=== PATIENT | female | born 1970 | race Caucasian/White ===

== ENCOUNTER → 2020-03-03 10:38 | Outpatient (BNVA) | payer OTHER, SELFPAY | PROVIDERS: Visit Provider Nurse Practitioner | DX: Z20.828 Contact with and (suspected) exposure to other viral communicable diseases (principal) | CPT/HCPCS: 87635 ==

== ENCOUNTER → 2020-06-02 11:24 | Outpatient (BNVA) | payer OTHER, SELFPAY | PROVIDERS: Visit Provider Nurse Practitioner Family | DX: M25.531 Pain in right wrist (principal) | CPT/HCPCS: 73110 ==

== ENCOUNTER 2023-03-05 09:57 | Day surgery (SDC) | payer BC, SELFPAY ==
[2023-03-05 10:21] VITALS: BP 116/73; PULSE 78; RESP 18; TEMP 36.9; O2SAT 96
[2023-03-05 10:30] VITALS: BMI 32.7
[2023-03-05] MEDS: sodium chloride 0.9% 1,000 ML 30 ML IV (10:37)
--- NOTE | 2023-03-05 10:40 | ANES.PREANE2 ---
Pre-Anesthetic Assessment Height/Weight: Height 1.7 m Weight 94.801 kg Temp Pulse Resp BP Pulse Ox O2 Del Method 98.4 F 78 18 116/73 96 Room Air 03/05/23 10:21 03/05/23 10:21 03/05/23 10:21 03/05/23 10:21 03/05/23 10:21 03/05/23 10:21 Preop Diagnosis: diarrhea, constipation Operation Date: 03/05/23 11:00 Proposed Procedures p Colonoscopy 69929, Egd 09407, R19.7,K59.00(Not Applicable) - Pk Vaughn DO s EGD(Not Applicable) - Pk Vaughn DO Was Beta Yaritza taken within 24 hours: N/A Was Clonidine taken within 24 hours: N/A Last intake: Intake Last Liquid Date 03/04/23 Last Liquid Time 22:00 Last Solid Date 03/03/23 Last Solid Time 18:00 Social No alcohol and No tobacco Exam alert, oriented x 3, clear to auscultation bilaterally and regular rate & rhythm Airway Submandibular: within normal limits Cervical ROM: within normal limits Mallampati: Class I History/ROS No significant history except as noted and No significant complaints Pulmonary suspected sleep apnea CV/HEM None reported None reported Hepatic None reported GI Gastroesophageal Reflux Disease Metabolic None reported Musc/skel None reported Neuropsych Anxiety and Depression Anesthetic Plan ASA status: 2 Anesthesia: Anesthesia Evaluation and MAC Risk of > 500 ml blood loss (7ml/kg in children): Yes, adequate IV access and fluids planned Medications/Allergies Home Medications Medication Instructions Recorded Confirmed Last Taken Type Hormone Cream 1 applic topical DAILY 06/02/20 03/04/23 03/04/23 History bupropion HCl 300 mg 24 hr tablet, 300 mg PO QAM 06/02/20 03/04/23 03/04/23 History extended release (Wellbutrin XL) acyclovir 200 mg capsule 200 mg PO TID PRN fever blister 02/16/23 03/04/23 1 Month Ago History ~02/01/23 ibuprofen 200 mg capsule 200 mg PO Q6H PRN Pain 02/16/23 03/04/23 03/04/23 History Allergies Allergy/AdvReac Type Severity Reaction Status Date / Time Penicillins Allergy Mild Unknown Verified 03/04/23 11:10 Current Medications Generic Name Dose Route Start Last Admin Trade Name Freq PRN Reason Stop Dose Admin Sodium Chloride 1,000 mls @ 30 mls/hr 03/05/23 10:15 03/05/23 10:37 Sodium Chloride 0.9% IV 03/06/23 10:14 30 mls/hr .Q24H LILIAN Administration PFSH Anesthesia Surgical History (Updated 02/16/23 @ 10:31 by Pk Vaughn DO) History of section History of hysterectomy History of ventral hernia repair Social History Smoking and tobacco status: never smoked Data Anesthesia Cardiac Studies: No Data to Display
--- NOTE | 2023-03-05 10:52 | W.PM.OPSUD ---
Surgery/Procedure H&P Update DATE OF PROCEDURE: March 05, 2023 DATE H&P PERFORMED: 02/16/23 H&P UPDATE INFORMATION: I have reviewed H&P completed within last 30 days, I have examined patient prior to procedure and No changes to prior documentation PREOP DIAGNOSIS: diarrhea, constipation PLANNED PROCEDURE: Operation Date: 03/05/23 11:00 Proposed Procedures p Colonoscopy 30768, Egd 76650, R19.7,K59.00(Not Applicable) - Pk Vaughn DO s EGD(Not Applicable) - Pk Vaughn DO
[2023-03-05 11:22] VITALS: BP 108/78; PULSE 70; RESP 14; TEMP 36.3; O2SAT 92
[2023-03-05 11:35] VITALS: BP 103/72; PULSE 80; RESP 16; O2SAT 93
--- NOTE | 2023-03-05 13:37 | ANE.PACU2 ---
Inpatient post-anesthesia follow up: Airway intact: Yes Vital signs: Temperature 97.3 F Pulse Rate 80 Respiratory Rate 16 Blood Pressure 103/72 Pulse Oximetry 93 Oxygen Delivery Me thod Room Air Oxygen Flow Rate Fraction of Inspir ed Oxygen Hydration adequate: Yes Nausea and vomiting: No Pain level: 2 Mental status: Baseline
== END 2023-03-05 11:48 | disposition home or self-care (01) ==
PROVIDERS: PCP Nurse Practitioner Family; Visit Provider Surgery
PROC: 0DJD8ZZ Inspection of Lower Intestinal Tract, Via Natural or Artificial Opening Endoscopic (ICD-10-PCS; CPT 45378; principal; 2023-03-05 11:00)
PROC: 0DJ08ZZ Inspection of Upper Intestinal Tract, Via Natural or Artificial Opening Endoscopic (ICD-10-PCS; CPT 43235; 2023-03-05 11:00)
DX: R19.7 Diarrhea, unspecified (principal); K59.00 Constipation, unspecified; K29.50 Unspecified chronic gastritis without bleeding; K21.9 Gastro-esophageal reflux disease without esophagitis
CPT/HCPCS: 43239; 45380; 82274; 83630; 87045; 87177; 87209; 87324; 87427; 87449; 88305; 88312; 88342; J2704; J3010; J7030

== ENCOUNTER 2023-03-31 06:31 | Outpatient (CLI) | payer BC, SELFPAY ==
--- NOTE | 2023-03-31 06:45 | US_ITS ---
WS: [id number] RIGHT UPPER QUADRANT ULTRASOUND HISTORY: abdominal pain COMPARISON: None available. Liver: 15.2 cm in length. Liver is top normal size. The entire liver is not well visualized due to at tenuation from hepatic steatosis. There is increased density in echogenicity throughout the liver. No bile duct dilatation Portal Vein: Normal hepatopetal flow with monophasic waveform. Gallbladder: Normally distended. Numerous stones are present in the gallbladder. Several of the stone s measure up to 2 cm in diameter. There is no wall thickening. No pericholecystic fluid. CBD: 0.4 cm, CBD is not well visualized. Pancreas: Poorly visualized pancreas. Large portions are obscured due to body habitus. Right kidney: 11.7 cm in length. Normal size and echogenicity. No hydronephrosis or mass. Aorta and IVC: Unremarkable abdominal aorta and IVC. No ascites. IMPRESSION: 1. Cholelithiasis. Numerous stones present in the gallbladder. No evidence for acute cholecystitis at this time. 2. Liver is top normal size with moderate to severe hepatic steatosis. The entire liver is not well v isualized due to the attenuation.
== END 2023-03-31 06:32 | disposition home or self-care (01) ==
LOC: RAD 06:31
PROVIDERS: PCP Nurse Practitioner Family; Visit Provider Surgery
DX: K80.20 Calculus of gallbladder without cholecystitis without obstruction (principal)
CPT/HCPCS: 76705

== ENCOUNTER 2023-05-13 05:38 | Day surgery (SDC) | payer BC, SELFPAY ==
[2023-05-13] VITALS (8 sets, daily range): BP systolic 109–133; BP diastolic 58–89; PULSE 64–74; RESP 14–20; TEMP 36.2–36.8; O2SAT 92–99; BMI 32.8
[2023-05-13] MEDS: sodium chloride 0.9% 1,000 ML 30 ML IV (06:13)
[2023-05-13] MEDS: vancomycin 1,500 MG/300 ML PIGGYBACK 200 MG IV (06:58)
--- NOTE | 2023-05-13 06:59 | W.PM.OPSUD ---
Surgery/Procedure H&P Update DATE OF PROCEDURE: May 13, 2023 DATE H&P PERFORMED: 04/28/23 H&P UPDATE INFORMATION: I have reviewed H&P completed within last 30 days, I have examined patient prior to procedure and No changes to prior documentation PLANNED PROCEDURE: Operation Date: 05/13/23 07:00 Proposed Procedures p 63187 lap red R10.13(Not Applicable) - Pk Vaughn,
[2023-05-13] MEDS: lidocaine-epi 2% 20 mL INJ INJECTION (07:32)
--- NOTE | 2023-05-13 07:54 | P.OP_ITS ---
Operative Report Date of procedure: May 13, 2023 Pre-op diagnosis: Symptomatic cholelithiasis Post-op diagnosis: Symptomatic cholelithiasis Surgeon: Pk Vaughn DO Brief History: This very pleasant 52-year-old female presented my office with symptomatic cholelithiasis. Laparoscopic cholecystectomy is indicated. The risk benefits were explained and documented. Procedure: Preoperative diagnosis: Symptomatic cholelithiasis Postoperative diagnosis: Same Procedure performed: Laparoscopic cholecystectomy Surgeon: Dr. Pk Vaughn DO Estimated blood loss: 5 mL Specimens: Gallbladder to pathology Complications: None apparent Description of procedure: Patient was wheeled into the operative room and placed on the OR table in a supine position. Abdomen was inspected prepped and draped in usual sterile fashion. Time-out was performed and all present were in agreement. A 15 blade scalp was used to make a stab incision in the left upper quadrant and intra- abdominal insufflation was achieved using a Veress needle. After localizing the tissue incisions were made and a 5 millimeter trocar was placed into the umbilicus as well as 2 in the right upper quadrant. A 12 millimeter trocar was placed in the epigastrium. Gallbladder was grasped and elevated. The triangle of Calot was carefully dissected using blunt dissection and electrocautery until the triangle of Calot clearly identified. The cystic duct was clipped proximally and double clipped distally. The duct was then ligated proximally. The cystic artery was doubly clipped and ligated. The gallbladder was then removed from the liver bed using electrocautery. The gallbladder was removed from the abdomen using an Endo-Catch bag through the epigastric incision. The liver bed was inspected and no bleeding was seen. The abdomen was irrigated and suctioned. All ports removed. Skin was washed and dried. Incisions were closed with 4-0 Monocryl in a subcuticular interrupted fashion. Skin glue was applied. Patient tolerated the procedure well.
--- NOTE | 2023-05-13 08:21 | ANES.PREANE2 ---
Pre-Anesthetic Assessment Height/Weight: Height 1.7 m Weight 95.254 kg Temp Pulse Resp BP Pulse Ox O2 Del Method 98.3 F 74 18 118/75 95 Room Air 05/13/23 06:05 05/13/23 06:05 05/13/23 06:05 05/13/23 06:05 05/13/23 06:05 05/13/23 06:05 Operation Date: 05/13/23 07:00 Proposed Procedures p 99981 lap red R10.13(Not Applicable) - Pk Vaughn DO Familial anesthetic complications: none Was Beta Yaritza taken within 24 hours: N/A Was Clonidine taken within 24 hours: N/A Last intake: Intake Last Liquid Date 05/12/23 Last Liquid Time 21:00 Last Solid Date 05/12/23 Last Solid Time 19:00 Social No alcohol and No tobacco Exam alert, oriented x 3, clear to auscultation bilaterally and regular rate & rhythm Airway Submandibular: within normal limits Cervical ROM: within normal limits Mallampati: Class II Dentition: full GI Gastroesophageal Reflux Disease Metabolic Obese Neuropsych Anxiety and Depression Anesthetic Plan ASA status: 2 Anesthesia: General Medications/Allergies Home Medications Medication Instructions Recorded Confirmed Last Taken Type Hormone Cream 1 applic topical DAILY 06/02/20 05/13/23 05/13/23 History bupropion HCl 300 mg 24 hr tablet, 300 mg PO QAM 06/02/20 05/12/23 05/12/23 History extended release (Wellbutrin XL) acyclovir 200 mg capsule 200 mg PO TID PRN fever blister 02/16/23 05/12/23 1 Month Ago History ~02/01/23 ibuprofen 200 mg capsule 200 mg PO Q6H PRN Pain 02/16/23 05/12/23 03/04/23 History pantoprazole 40 mg tablet,delayed 40 mg PO BID 60 days #120 tabs 03/23/23 05/12/23 05/12/23 Rx release (Protonix) ciprofloxacin HCl 500 mg tablet 250 mg (1/2 x 500 mg) PO BID #14 05/13/23 Unknown Rx tabs docusate sodium 100 mg capsule 100 mg PO BID #14 caps 05/13/23 Unknown Rx (Colace) hydrocodone 7.5 mg-acetaminophen 1 tab PO Q6H PRN pain #20 tabs 05/13/23 Unknown Rx 325 mg tablet metronidazole 500 mg tablet 500 mg PO TID #21 tabs 05/13/23 Unknown Rx Allergies Allergy/AdvReac Type Severity Reaction Status Date / Time Penicillins Allergy Mild Unknown Verified 05/12/23 13:32 Current Medications Generic Name Dose Route Start Last Admin Trade Name Freq PRN Reason Stop Dose Admin Sodium Chloride 1,000 mls @ 30 mls/hr 05/13/23 06:00 05/13/23 06:13 Sodium Chloride 0.9% IV 05/14/23 05:59 30 mls/hr .Q24H LILIAN Administration PFSH Anesthesia Surgical History History of hysterectomy History of section History of ventral hernia repair Social History Smoking and tobacco/nicotine status: never used tobacco/nicotine Data Anesthesia Cardiac Studies: No Data to Display
[2023-05-13] MEDS: HYDROcodone-acetaminophen 7.5-325 mg Tablet 1 TAB PO (09:03)
--- NOTE | 2023-05-13 15:45 | ANE.PACU2 ---
Inpatient post-anesthesia follow up: Airway intact: Yes Vital signs: Temperature 97.3 F Pulse Rate 64 Respiratory Rate 17 Blood Pressure 109/73 Pulse Oximetry 94 Oxygen Delivery Me thod Room Air Oxygen Flow Rate 6 Fraction of Inspir ed Oxygen Hydration adequate: Yes Nausea and vomiting: No Pain level: 3 Mental status: Baseline
== END 2023-05-13 09:30 | disposition home or self-care (01) ==
PROVIDERS: PCP Nurse Practitioner Family; Visit Provider Surgery
PROC: 0FT44ZZ Resection of Gallbladder, Percutaneous Endoscopic Approach (ICD-10-PCS; CPT 47562; principal; 2023-05-13 07:00)
DX: K80.10 Calculus of gallbladder with chronic cholecystitis without obstruction (principal); K21.9 Gastro-esophageal reflux disease without esophagitis; E66.9 Obesity, unspecified; Z68.32 Body mass index [BMI] 32.0-32.9, adult
CPT/HCPCS: 47562; 88304; J1100; J1885; J2250; J2405; J2704; J2710; J3010; J3370; J3490; J7030

== ENCOUNTER 2023-06-15 18:48 | Inpatient (IN) | payer BC, SELFPAY ==
[2023-06-15] VITALS (16 sets, daily range): BP systolic 104–126; BP diastolic 59–81; PULSE 83–116; RESP 16–32; TEMP 36.9–37.4; O2SAT 92–98; BMI 32.1; BMI 32.8
--- NOTE | 2023-06-15 19:38 | CTR_ITS ---
PROCEDURE INFORMATION: Exam: CTA Chest With Contrast Exam date and time: 06/15/2023 9:00 PM Age: 52 years old Clinical indication: Dyspnea and tachypnea; Additional info: Known dvt, now tachycardia and SOB TECHNIQUE: Imaging protocol: Computed tomographic angiography of the chest with contrast. Exam focused on the arteries. 3D rendering (Not supervised by radiologist): MIP and/or 3D reconstructed images were created by the technologist. Radiation optimization: All CT scans at this facility use at least one of these dose optimization techniques: automated exposure control; mA and/or kV adjustment per patient size (includes targeted exams where dose is matched to clinical indication); or iterative reconstruction. Contrast material: OMNI 350; Contrast volume: 100 ml; Contrast route: INTRAVENOUS (IV); COMPARISON: US gall bladder 96770 03/31/2023 6:45 AM RADIATION DOSE METRICS: Total DLP (mGy-cm): 556.27 FINDINGS: Pulmonary arteries: There are multiple bilateral intraluminal filling defects indicative of acute pulmonary embolism. The clots predominantly lie in the segmental and subsegmental vessels. There is no central or saddle embolus. Although a few clots appear nearly occlusive there is no pulmonary infarction or atelectasis. No pleural effusion. Aorta: Unremarkable. No aortic aneurysm. No aortic dissection. Lungs: See Pulmonary arteries finding. Pleural spaces: See Pulmonary arteries finding. Heart: No significant deformity of the intraventricular septum. Heart RV/LV ratio: The RV/LV ratio is 1.0. Coronary arteries: No calcified plaque in the coronary arteries. Lymph nodes: There are a few mildly enlarged hilar and central mediastinal nodes up to 1.2 cm and are most likely reactive. Liver: The liver is slightly enlarged and has geographic areas of steatosis. Gallbladder and bile ducts: The gallbladder is surgically absent. Bones/joints: Unremarkable. No acute fracture. Soft tissues: Unremarkable. CT/CT angio chest PE protcl [id number] IMPRESSION: 1. Bilateral acute pulmonary embolism. No saddle embolus or significant RV strain. 2. Hepatic steatosis.
--- NOTE | 2023-06-15 19:40 | ECG_ITS ---
[facility] Test Date: 2023-06-15 Pat Name: Kaley Dukes Department: Room: Gender: Female Cord Maker: : 1970 Requested By: Tenzin Taylor Order Number: [id number] Eri MD: Allyson Gunter M.D. Measurements Intervals [place] Rate: 100 P: 41 WA: 142 QRS: 35 QRSD: 93 T: 53 QT: 350 QTc: 452 Interpretive Statements SINUS TACHYCARDIA LOW QRS VOLTAGE IN PRECORDIAL LEADS [QRS DEFLECTION < 1.0 mV IN CHEST LEADS] NONSPECIFIC T-WAVE ABNORMALITY ABNORMAL RHYTHM ECG No previous ECG available for comparison Electronically Signed On 06-15-2023 21:43:23 LE[employer] PONY [employer]ER by Allyson Gunter M.D. [id number]
[2023-06-15 20:12] LABS: Basophils # 0.1 10^3/uL (0.0-0.1); Basophils % 0.7 %; Eosinophils # 0.2 10^3/uL (0.0-0.8); Eosinophils % 1.5 %; Hematocrit 42.3 % (36-47); Lymphocytes # 1.7 10^3/uL (0.8-4.8); Lymphocytes % 16.2 %; Mean Corpuscular HGB Conc 33.8 g/dL (30-55); Mean Corpuscular Hemoglobin 30.4 pg (27-33); Mean Platelet Volume 10.1 fL (7.4-10.4); Monocytes # 1.1 10^3/uL (0.2-0.9); Monocytes % 11.1 %; Neutrophils # 7.15 10^3/uL (1.8-7.7); Neutrophils % 70.2 %; Nucleated Red Blood Cells % 0 %; Platelet Count 188 10^3/cmm (157-399); Red Cell Distribution Width 11.9 % (12.1-15.1); White Blood Count 10.18 10^3/uL (3.29-11.43)
[2023-06-15 20:35] LABS: Troponin(5th) Baseline < 6 ng/L (0-10)
[2023-06-15 20:47] LABS: Alanine Aminotransferase 54 U/L (0-33); Albumin Level 4.7 g/dL (3.5-5.2); Alkaline Phosphatase 142 U/L (35-105); Anion Gap 19.5 (5-19); Aspartate Amino Transferase 36 U/L (0-32); Blood Urea Nitrogen 13 mg/dL (6-20); Calcium 9.8 mg/dL (8.5-10.5); Carbon Dioxide 23 mmol/L (22-29); Chloride 98 mmol/L (98-107); Globulin 3.1 g/dL (1.3-4.6); Glomerular Filtration Rate 88.6 mL/min (90-130); Glucose 294 mg/dL (65-115); NT Pro B Type Natriuretic Pept < 36 pg/mL (0-125); Osmolality Calculated 293 mOsm/kg (285-295); Potassium 4.5 mmol/L (3.5-5.1); Sodium 136 mmol/L (136-145); Total Protein 7.8 g/dL (6.6-8.7)
[2023-06-15] MEDS: iohexol 350 mg/mL 500 mL Btl (per mL) IV (20:59)
--- NOTE | 2023-06-15 21:02 | W.ED.SOB ---
HPI - SOB/Dyspnea General: Chief Complaint: Shortness of Breath/Dyspnea Stated Complaint: right leg swollen Time Seen by Provider: 06/15/23 19:21 History of Present Illness: HPI Narrative: 52-year-old female presents emergency department complaining of shortness of breath with exertion. She was diagnosed with a left lower extremity DVT yesterday. Based on her understanding, it is a relatively long segment DVT. She was started on Eliquis 5 mg p.o. twice daily. (It appears that she was not instructed to take 10 mg p.o. twice daily x 7 days). Patient reports he is not having any chest pain or hemoptysis but feels fatigued when she is trying to exert herself. She was noted to have tachycardia and low-grade temperature of 99.4 on arrival. It is unclear whether this is from systemic inflammatory reaction or whether the patient has a pulmonary embolism. In fact, the patient was referred to the emergency department with concern that she may have pulmonary embolism as she reported shortness of breath. She does not have any history of DVT or clotting disorder. She did have surgery in May; this appears to be her only risk factor that we are aware of. She does use bioidentical hormone cream but only to reach normal levels. Associated symptoms: Deny chest congestion, chest pain, fever(s), hemoptysis, lightheadedness, palpitations or syncope Review of Systems General: Reports: 10 or more systems reviewed and unremarkable except in HPI and below Const: Reports: other (LLE pain/swelling); Denies: fever(s) or chills Card: Reports: edema and dyspnea on exertion; Denies: chest pain, palpitations, irregular heart rhythm, lightheadedness, syncope or pre-syncope Resp: Reports: dyspnea; Denies: productive cough, non-productive cough, wheezing, stridor, pain on inspiration, change in phlegm color, hemoptysis or chest congestion Skin/Breast: Reports: other (mild erythema LLE) [facility] ED PFSH: Surgical History (Updated 06/08/23 @ 08:50 by Pk Vaughn DO) S/P cholecystectomy History of hysterectomy History of section History of ventral hernia repair Social History Smoking and tobacco/nicotine status: never used tobacco/nicotine Physical Exam Narrative: EXAM NARRATIVE: Examination is notable for middle-age female in no apparent distress who has a tachycardia with palpable radial pulse. Her face is slightly flushed and her skin is all slightly warm. She has some mild erythroderma of the left lower extremity. The left lower extremity is obviously more swollen than the right. It is tender to palpation. Capillary refill is brisk. There appears to be venous congestion which would be easily explained by her long segment DVT. I do not hear any cardiac murmurs. Her lungs are clear. She is on room air. Const: COMMON NORMALS: no limitations, alert and well nourished EXAM LIMITATIONS: no altered mental status HENMT: COMMON NORMALS: normocephalic, atraumatic and external ears normal HEAD & SCALP: normocephalic and atraumatic EXTERNAL EAR: Yes external ears normal MOUTH: no muffled voice Eye: COMMON NORMALS: EOMs intact bilaterally, conjunctivae normal and no scleral icterus CONJUNCTIVA: Yes conjunctivae normal Neck/C-Spine: COMMON NORMALS: no JVD GENERAL: Yes normal visual inspection and Yes trachea midline Resp: COMMON NORMALS: No use of accessory muscles and clear to auscultation bilaterally AUSCULTATION: clear to auscultation bilaterally Cardio: COMMON NORMALS: no JVD and regular rhythm RHYTHM: regular rhythm GI: COMMON NORMALS: Soft to palpation PALPATION: Yes Soft to palpation and No Guarding due to palpation present (GI) Neuro: COMMON NORMALS: moves all extremities, no focal motor deficits and no sensory deficits noted SENSORIUM/ORIENTATION: Yes alert SPEECH: speech normal Psych: COMMON NORMALS: mental status grossly normal, Normal thought process present, cooperative, normal affect and speech normal SPEECH: Yes normal speech THOUGHT PROCESS: Normal thought process present Skin: COMMON NORMALS: no rashes or lesions noted, turgor normal and no jaundice GENERAL SKIN EXAM: no rashes or lesions noted and turgor normal Course Vital Signs: Vital signs: Vital Signs Temperature 99.4 F 06/15/23 19:02 Pulse Rate 100 06/15/23 22:30 Respiratory Rate 17 06/15/23 20:45 Blood Pressure 104/73 06/15/23 22:30 Pulse Oximetry 93 06/15/23 22:30 Oxygen Delivery Me thod Room Air 06/15/23 20:45 MDM - SOB/Dyspnea Medical Decision Making 52-year-old female with history of recently diagnosed left lower extremity DVT who now presents with shortness of breath with exertion, low-grade fever, tachycardia. The concern is that she has pulmonary embolism. Of note, the patient did have surgery in May so this may be considered provoked although she has more than 2 weeks out. She reports she had been having calf pain for about 2 weeks until it started swelling yesterday morning. She has been on Eliquis 5 mg p.o. twice daily and has taken 2 doses today. However, she needs to be on 10 mg p.o. twice daily for 7 days before starting on 5 mg p.o. twice daily. I have ordered 1 extra Eliquis 5 mg p.o. tablet. UPDATE: CTA Shows Pulmonary arteries: There are multiple bilateral intraluminal filling defects indicative of acute pulmonary embolism. The clots predominantly lie in the segmental and subsegmental vessels. There is no central or saddle embolus. Although a few clots appear nearly occlusive there is no pulmonary infarction or atelectasis. No pleural effusion. Patient has large clot burden in LLE based on her report of US findings. She has HR 103 at rest. Low grade temps, RR23 at rest on reassessment. Discussed options of d/c with eliquis 10mg po bid vs admission for heparin drip and hospital monitoring. Pt discussed with [email or web address]. They feel like it would be best to do heparin drip at least for awhile to reduce likelihood of further PE since she's already symptomatic. I have placed consult to hospitalist. Lab Data 06/15/23 20:03 06/15/23 20:03 Labs/Radiology: Radiology Impressions Chest CTA 06/15/23 19:38 IMPRESSION: 1. Bilateral acute pulmonary embolism. No saddle embolus or significant RV strain. 2. Hepatic steatosis. ADDENDUM: 06/15/232131 THIS REPORT CONTAINS FINDINGS THAT MAY BE CRITICAL TO PATIENT CARE. The findings were verbally communicated via telephone conference with PAYTON LONG at 9:30 PM PARTS COUNTER ASSOCIATE on 06/15/2023. The findings were acknowledged and understood. Laboratory Results WBC 10.18 10^3/uL (3.29-11.43) 06/15/23 20:03 RBC 4.70 10^6/uL (3.85-5.65) 06/15/23 20:03 Hgb 14.30 g/dL (11.27-16.99) 06/15/23 20:03 Hct 42.3 % (36-47) 06/15/23 20:03 MCV 90.0 fl (85-98) 06/15/23 20:03 MCH 30.4 pg (27-33) 06/15/23 20:03 MCHC 33.8 g/dL (30-55) 06/15/23 20:03 RDW 11.9 % (12.1-15.1) L 06/15/23 20:03 Plt Count 188 10^3/cmm (157-399) 06/15/23 20:03 MPV 10.1 fL (7.4-10.4) 06/15/23 20:03 Neut % (Auto) 70.2 % 06/15/23 20:03 Lymph % (Auto) 16.2 % 06/15/23 20:03 Fannin % (Auto) 11.1 % 06/15/23 20:03 Eos % (Auto) 1.5 % 06/15/23 20:03 Baso % (Auto) 0.7 % 06/15/23 20:03 Neut # (Auto) 7.15 10^3/uL (1.8-7.7) 06/15/23 20:03 Lymph # (Auto) 1.7 10^3/uL (0.8-4.8) 06/15/23 20:03 Fannin # (Auto) 1.1 10^3/uL (0.2-0.9) H 06/15/23 20:03 Eos # (Auto) 0.2 10^3/uL (0.0-0.8) 06/15/23 20:03 Baso # (Auto) 0.1 10^3/uL (0.0-0.1) 06/15/23 20:03 Nucleated RBC % (auto) 0 % 06/15/23 20: Nucleated RBCs # 0.0 /100WBC 06/15/23 20:03 Sodium 136 mmol/L (136-145) 06/15/23 20:03 Potassium 4.5 mmol/L (3.5-5.1) 06/15/23 20:03 Chloride 98 mmol/L (98-107) 06/15/23 20:03 Carbon Dioxide 23 mmol/L (22-29) 06/15/23 20:03 Anion Gap 19.5 (5-19) H 06/15/23 20:03 BUN 13 mg/dL (6-20) 06/15/23 20:03 Creatinine 0.7 mg/dL (0.5-0.9) 06/15/23 20:03 GFR Calculation 88.6 mL/min (90-130) L 06/15/23 20:03 Glucose 294 mg/dL (65-115) H 06/15/23 20:03 Calculated Osmolality 293 mOsm/kg (285-295) 06/15/23 20:03 Calcium 9.8 mg/dL (8.5-10.5) 06/15/23 20:03 Total Bilirubin 1.0 mg/dL (0.15-1.2) 06/15/23 20:03 AST 36 U/L (0-32) H 06/15/23 20:03 ALT 54 U/L (0-33) H 06/15/23 20:03 Alkaline Phosphatase 142 U/L (35-105) H 06/15/23 20:03 Troponin T Baseline < 6 ng/L (0-10) 06/15/23 20:03 Troponin T 120 Minute 6.00 ng/L (0-10) 06/15/23 21:20 Delta Troponin T 0.52208 ABS# (0-10) 06/15/23 21:20 NT-Pro-B Natriuret Pep < 36 pg/mL (0-125) 06/15/23 20:03 Total Protein 7.8 g/dL (6.6-8.7) 06/15/23 20:03 Albumin 4.7 g/dL (3.5-5.2) 06/15/23 20:03 Globulin 3.1 g/dL (1.3-4.6) 06/15/23 20:03 All radiology interpretation(s) finalized by discharge Discharge Plan Discharge Patient Disposition: Admitted As Inpatient Admit Provider: Yuliana Eckert Clinical Impression: Pulmonary embolism, Acute deep vein thrombosis (DVT) of left lower extremity Condition: Stable Coding Level of Care Code ED Air Bag Stripper for Chg [id number]
[2023-06-15 21:43] LABS: Troponin 5 2HR Delta 0.00001 ABS# (0-10)
[2023-06-15] MEDS: acetaminophen 1,000 MG/100 ML PIGGYBACK 400 MG IV (21:52)
[2023-06-15] MEDS: apixaban 5 mg Tablet PO (21:52)
[2023-06-15] MEDS: heparin 5,000 unit/mL INJ 1 mL 4000 UNIT IVP (22:16)
[2023-06-15] MEDS: heparin drip 25,000 UNIT/500 ML PREMIX 26.04 UNIT IV (22:17)
--- NOTE | 2023-06-15 22:39 | USCV_ITS ---
Kaley Dukes Age: 52 Gender: F : 1970 Exam Date: 06/15/2023 01:59 Ordering Phys: Yuliana Eckert MD Technologist: NIDIA Exam Location: [facility] Indication: bilateral pulmonary emboli s/p LLE DVT following lapchole May 2023. assess for RT heart strain. No hx cardiac intervention BP: 104 / 73 HR: 102 Rhythm: Sinus Technical Quality: Adequate MEASUREMENTS (Male / Female) Normal Values 2D ECHO LV Diastolic Diameter PLAX 3.9 cm 4.2 - 5.9 / 3.9 - 5.3 cm LV Systolic Diameter PLAX 2.4 cm IVS Diastolic Thickness 1.2 cm 0.6 - 1.0 / 0.6 - 0.9 cm IVS Systolic Thickness 1.8 cm LVPW Diastolic Thickness 1.2 cm 0.6 - 1.0 / 0.6 - 0.9 cm LVPW Systolic Thickness 1.3 cm LVOT Diameter 1.8 cm LV Ejection Fraction 2D Teich 70.1 % LV Ejection Fraction MOD 2C 72.8 % LV Ejection Fraction 2C AL 71.6 % LA Diameter 3.1 cm LA Width 3.0 cm LA Height 4.6 cm RA Width 3.1 cm RA Height 4.5 cm Aorta at Sinotubular Diameter 2.8 cm IVC Diameter 1.7 cm M-MODE Aortic Annulus Diameter 2.9 cm LA Ao Ratio MM 1.0 MV E Point Septal Separation 0.3 cm DOPPLER AV Peak Velocity 118.0 cm/s LVOT Peak Velocity 88.0 cm/s AV Area Cont Eq vti 1.9 cm squared AV Area Cont Eq pk 2.0 cm squared MV Peak Velocity 74.0 cm/s MV Area PHT 2.8 cm squared Mitral E to A Ratio 0.8 MV E' Velocity 28.5 cm/s Mitral E to MV E' Ratio 6.9 Mitral E to LV E' Lateral Ratio 6.2 Mitral E to LV E' Septal Ratio 7.8 TR Peak Velocity 205.3 cm/s TR Peak Gradient 16.9 mmHg TV Peak E Velocity 54.0 cm/s Right Atrial Pressure 5.0 mmHg Pulmonary Artery Systolic Pressu 21.9 mmHg PV Peak Velocity 98.0 cm/s RV Acceleration Time 0.1 s RV Ejection Time 0.3 s RV AcT/ET 0.3 FINDINGS Left Ventricle Left ventricle is normal in size. LV systolic function is normal with EF of 60 to 65%. No regional wall motion abnormalities are seen. Grade 1 diastolic dysfunction Right Ventricle Normal in size and function Right Atrium Normal in size Left Atrium Normal in size Mitral Valve Structurally normal mitral valve. Mild mitral regurgitation. Aortic Valve Structurally normal aortic valve. No significant stenosis or regurgitation is seen. Tricuspid Valve Trace tricuspid regurgitation. Pulmonary artery systolic pressure is normal. Pulmonic Valve Not well-visualized. Mild pulmonic regurgitation. Pericardium Normal Aorta Normal in size IVC Appears to be normal CONCLUSIONS LV systolic function is normal with EF of 60 to 65%. Grade 1 diastolic dysfunction. Mild mitral regurgitation. Trace tricuspid regurgitation Mild pulmonic regurgitation. No comparison studies are available Daniel Salcido MD (Electronically Signed) Final Date: 30 June 2023 10:02 S
--- NOTE | 2023-06-15 22:54 | ECG_ITS ---
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 Measurements Intervals [place] Rate: 99 P: 30 [place]: 148 QRS: 19 QRSD: 86 T: 30 QT: 371 QTc: 477 Interpretive Statements SINUS RHYTHM LOW QRS VOLTAGE IN PRECORDIAL LEADS [QRS DEFLECTION < 1.0 mV IN CHEST LEADS] NONSPECIFIC T-WAVE ABNORMALITY Compared to ECG 06/15/2023 20:23:28 Sinus tachycardia no longer present T-wave abnormality still present Electronically Signed On 06-16-2023 19:01:24 PROGRAM DIRECTOR/MORNING SHOW HOST by Daniel Salcido M.D. [id number]
--- NOTE | 2023-06-15 22:54 | PC.NURSE ---
Report called to ASIYA Singh in ICU. All questions and concerns addressed at time of report.
--- NOTE | 2023-06-15 23:23 | PC.NURSE ---
Admitted to ICU room 2 via bed from ED with nurse at bedside. Heparin drip infusing to Right AC IV at 14 units/kg/hr. Connected to ekg monitor and continuous pulse ox. Left leg noted to be red and swollen, reports pain approx a 2-3 on a 0-10 pain scale. 3+ pedal pulses noted to left foot. Left thigh marked and measured at 595cm and left calf marked and measured at 397 cm.
[2023-06-16] VITALS (36 sets, daily range): BP systolic 94–127; BP diastolic 52–105; PULSE 72–89; RESP 12–26; TEMP 36.5–37.1; O2SAT 90–96
--- NOTE | 2023-06-16 01:00 | PM.HP ---
Providers/Chief Complaint Admitting Physician: Yuliana Eckert MD Primary Care Provider: April Pina APN Chief Complaint: right leg swollen History of Present Illness Kaley Dukes is a 52 year old female who was in her usual state of health until Wednesday night (today's Wednesday night) when she went to bed feeling slightly flushed overall. Next morning she woke up and noticed that her left leg was acutely swollen and painful. She followed up at [facility] where she was diagnosed with acute DVT of the left leg. She was started on Eliquis 5 mg p.o. twice daily of which she took 4 pills. The same time as noticing the left leg swelling she had also noticed that she was feeling short of breath with less than usual activity. She states that moving around within the house was taking her breath away which is pretty unusual for her. She presented to the ER with these complaints and was found to have bilateral PE. Patient denies any past history of known DVT or PE or other procoagulant disorder. She is on hormone replacement therapy with vaginal estrogens for the last 12 years. She had a total hysterectomy at age 34 for endometriosis. She has never been on oral or injectable HRT. No recent history of prolonged travel. 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 No known underlying rheumatological or immunological disorder. No history of malignancy. She had a recent cholecystectomy in May 2023. Procedures was overall uncomplicated. She did not need any central lines or other IV access in the groin or legs. Review of Systems General: Reports: 10 or more systems reviewed and unremarkable except in HPI and below Const: Denies: fever(s), chills or body aches Eyes: Denies: change in vision, blurry vision or photophobia ENMT: Reports: hoarseness; Denies: throat pain, enlarged tonsils, odynophagia or nasal congestion Card: Denies: chest pain, palpitations, irregular heart rhythm, edema, swelling of feet/ankles, lightheadedness, pre-syncope, dyspnea on exertion or orthopnea Resp: Denies: dyspnea, productive cough, non-productive cough, wheezing, stridor, pain on inspiration, change in phlegm color, hemoptysis or chest congestion GI: Denies: abdominal pain, nausea, vomiting, hematemesis, coffee ground emesis, dysphagia, heartburn, diarrhea, constipation, GI cramping, change in stool character, hematochezia or melena : Denies: flank pain, difficulty voiding, dysuria, urinary frequency, urinary urgency, urinary hesitancy or hematuria Musc: Denies: neck pain, back pain, extremity pain, joint swelling, joint warmth or deformity Neuro: Denies: headache(s), numbness in extremities, weakness in extremities, sensory changes, difficulty walking, frequent falls, dizziness, vertigo, behavioral changes, Slurred speech present or seizure-like activity Psych: Denies: anxiety, depression, suicidal ideation or homicidal ideation Endo: Denies: polyuria, polydipsia, tired all the time, cold intolerance or hot flashes Moy/Lymph: Denies: easy bruising or easy bleeding Medications/Allergies Home Medications Medication Instructions Recorded Confirmed Last Taken Type Hormone Cream 1 applic topical DAILY 06/02/20 06/16/23 06/15/23 History pantoprazole 40 mg tablet,delayed 40 mg PO BID 60 days #120 tabs 03/23/23 06/16/23 06/15/23 Rx release (Protonix) acyclovir 400 mg tablet 400 mg PO TID 06/16/23 06/16/23 Unknown History apixaban 5 mg tablet (Eliquis) 5 mg PO BID 06/16/23 06/16/23 06/15/23 History bupropion HCl 150 mg 24 hr tablet, 150 mg PO DAILY 06/16/23 06/16/23 06/15/23 History extended release ibuprofen 800 mg tablet 800 mg PO TID PRN pain 06/16/23 06/16/23 Unknown History Allergies Allergy/AdvReac Type Severity Reaction Status Date / Time Penicillins Allergy Mild Unknown Verified 06/08/23 08:22 PFSH Acute PFSH: Surgical History S/P cholecystectomy History of hysterectomy History of section History of ventral hernia repair Social History Smoking and tobacco/nicotine status: never used tobacco/nicotine Vitals/I&O/Wt Last Vital Signs Temp 98.7 F 06/16/23 04:00 Pulse 78 06/16/23 04:00 Resp 17 06/16/23 04:00 BP 104/71 06/16/23 04:00 Pulse Ox 91 06/16/23 04:00 O2 Del Method Room Air 06/16/23 04:00 06/15/23 06/15/23 06/16/23 14:59 22:59 06:59 Intake Total 561.448 / 561.448 Output Total 500 / 500 Balance 61.448 / 61.448 Weight last 48 hrs Weight 95.254 kg Weight 95.254 kg Weight 92.986 kg Physical Exam Narrative: General: No acute distress, AO x3 HEENT: PERRLA, pupils bilaterally equal and reactive, pallors not present Chest: Normal vesicular breath sounds, no added sounds, equal good air entry bilaterally CVS: S1-S2 regular, no murmurs, no tachycardia, no gallops, no rubs Abdomen: Soft, nontender, no organomegaly, bowel sounds present Neuro: No focal deficits, no facial deformity, AO x3, power 5/5 in all limbs Extremities: Left lower extremity swollen and painful. Data 06/16/23 03:10 06/16/23 03:10 Other Labs: Radiology Impressions Chest CTA 06/15/23 19:38 IMPRESSION: 1. Bilateral acute pulmonary embolism. No saddle embolus or significant RV strain. 2. Hepatic steatosis. ADDENDUM: 06/15/232131 THIS REPORT CONTAINS FINDINGS THAT MAY BE CRITICAL TO PATIENT CARE. The findings were verbally communicated via telephone conference with PAYTON LONG at 9:30 PM SUPERVISOR MAILS on 06/15/2023. The findings were acknowledged and understood. Laboratory Results WBC 7.43 10^3/uL (3.29-11.43) 06/16/23 03:10 RBC 4.16 10^6/uL (3.85-5.65) 06/16/23 03:10 Hgb 12.80 g/dL (11.27-16.99) 06/16/23 03:10 Hct 38.1 % (36-47) 06/16/23 03:10 MCV 91.6 fl (85-98) 06/16/23 03:10 MCH 30.8 pg (27-33) 06/16/23 03:10 MCHC 33.6 g/dL (30-55) 06/16/23 03:10 RDW 12.3 % (12.1-15.1) 06/16/23 03:10 Plt Count 172 10^3/cmm (157-399) 06/16/23 03:10 MPV 10.7 fL (7.4-10.4) H 06/16/23 03:10 Neut % (Auto) 53.5 % 06/16/23 03:10 Lymph % (Auto) 30.4 % 06/16/23 03:10 [place] % (Auto) 11.6 % 06/16/23 03:10 Eos % (Auto) 3.2 % 06/16/23 03:10 Baso % (Auto) 0.9 % 06/16/23 03:10 Neut # (Auto) 3.97 10^3/uL (1.8-7.7) 06/16/23 03:10 Lymph # (Auto) 2.3 10^3/uL (0.8-4.8) 06/16/23 03:10 [place] # (Auto) 0.9 10^3/uL (0.2-0.9) 06/16/23 03:10 Eos # (Auto) 0.2 10^3/uL (0.0-0.8) 06/16/23 03:10 Baso # (Auto) 0.1 10^3/uL (0.0-0.1) 06/16/23 03:10 Nucleated RBC % (auto) 0 % 06/16/23 03:10 Nucleated RBCs # 0.0 /100WBC 06/16/23 03:10 APTT 81.3 SECONDS (23.9-36.7) H 06/16/23 03:10 Sodium 135 mmol/L (136-145) L 06/16/23 03:10 Potassium 3.8 mmol/L (3.5-5.1) 06/16/23 03:10 Chloride 100 mmol/L (98-107) 06/16/23 03:10 Carbon Dioxide 24 mmol/L (22-29) 06/16/23 03:10 Anion Gap 14.8 (5-19) 06/16/23 03:10 BUN 12 mg/dL (6-20) 06/16/23 03:10 Creatinine 0.7 mg/dL (0.5-0.9) 06/16/23 03:10 GFR Calculation 88.6 mL/min (90-130) L 06/16/23 03:10 Glucose 322 mg/dL (65-115) H 06/16/23 03:10 Calculated Osmolality 292 mOsm/kg (285-295) 06/16/23 03:10 Calcium 9.4 mg/dL (8.5-10.5) 06/16/23 03:10 Total Bilirubin 0.8 mg/dL (0.15-1.2) 06/16/23 03:10 AST 30 U/L (0-32) 06/16/23 03:10 ALT 39 U/L (0-33) H 06/16/23 03:10 Alkaline Phosphatase 106 U/L (35-105) H 06/16/23 03:10 Troponin T Baseline < 6 ng/L (0-10) 06/15/23 20:03 Troponin T 120 Minute 6.00 ng/L (0-10) 06/15/23 21:20 Delta Troponin T 0.74932 ABS# (0-10) 06/15/23 21:20 Troponin T Hi Sens 6Hr 6.00 ng/L (0-10) 06/16/23 03:10 Troponin T Hi Sens 6Hr Delta 0.10057 ng/L (0-12) 06/16/23 03:10 NT-Pro-B Natriuret Pep < 36 pg/mL (0-125) 06/15/23 20:03 Total Protein 6.5 g/dL (6.6-8.7) L 06/16/23 03:10 Albumin 3.6 g/dL (3.5-5.2) 06/16/23 03:10 Globulin 2.9 g/dL (1.3-4.6) 06/16/23 03:10 TSH 1.98 uIU/mL (0.27-4.20) 06/16/23 03:10 A&P Assessment and plan (1) Acute deep vein thrombosis (DVT) of left lower extremity: (2) Pulmonary embolism: Plan 52-year-old lady without known significant comorbidities presenting to the hospital with acute onset of left lower extremity swelling and shortness of breath. Recent diagnosis of left lower extremity DVT. Records requested from [facility]. Discovery of bilateral pulmonary embolism today. Patient is saturating 91 to 93% on room air currently, however minimal activity such as transfer out of bed and going to the bathroom causes her to become tachypneic. Started on heparin drip, closely monitor PTT and platelet while on the heparin infusion. Plan to transition to DOAC's at the time of discharge. Would not be considered Eliquis failure as patient only had 4 tablets of 5 mg each prior to presentation. Closely monitor respiratory status Supplemental O2 to keep saturation greater than 92%. Monitor for any signs of developing pneumonia or pulmonary infarction. Echocardiogram to evaluate for right heart strain. Attestations Medical Necessity Statement*: Greater than 2 midnight admission is anticipated for bilateral PE, acute DVT Coding Level of Care Code Acute Code for Chg Fwd High MDM includes number and complexity of problems actively addressed during encounter, amount and/or complexity of data reviewed/ordered and described risk of complication, morbidity or mortality of management as documented Diagnoses Acute deep vein thrombosis (DVT) of left lower extremity I82.402 Pulmonary embolism I26.99
--- NOTE | 2023-06-16 01:40 | ECG_ITS ---
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 Measurements Intervals [place] Rate: 77 P: 53 [place]: 165 QRS: 26 QRSD: 87 T: 52 QT: 403 QTc: 459 Interpretive Statements SINUS RHYTHM LOW QRS VOLTAGE IN PRECORDIAL LEADS [QRS DEFLECTION < 1.0 mV IN CHEST LEADS] Compared to ECG 06/15/2023 22:54:36 T-wave abnormality no longer present Electronically Signed On 06-16-2023 19:00:46 SUPERVISOR LINE DEPARTMENT by Daniel Salcido M.D. [id number]
[2023-06-16 03:58] LABS: Basophils # 0.1 10^3/uL (0.0-0.1); Basophils % 0.9 %; Eosinophils # 0.2 10^3/uL (0.0-0.8); Eosinophils % 3.2 %; Hematocrit 38.1 % (36-47); Lymphocytes # 2.3 10^3/uL (0.8-4.8); Lymphocytes % 30.4 %; Mean Corpuscular HGB Conc 33.6 g/dL (30-55); Mean Corpuscular Hemoglobin 30.8 pg (27-33); Mean Corpuscular Volume 91.6 fl (85-98); Mean Platelet Volume 10.7 fL (7.4-10.4); Monocytes # 0.9 10^3/uL (0.2-0.9); Monocytes % 11.6 %; Neutrophils # 3.97 10^3/uL (1.8-7.7); Neutrophils % 53.5 %; Nucleated Red Blood Cells % 0 %; Platelet Count 172 10^3/cmm (157-399); Red Blood Count 4.16 10^6/uL (3.85-5.65); Red Cell Distribution Width 12.3 % (12.1-15.1); White Blood Count 7.43 10^3/uL (3.29-11.43)
[2023-06-16 04:17] LABS: Partial Thromboplastin Time 81.3 SECONDS (23.9-36.7)
[2023-06-16 04:24] LABS: Troponin 5 6HR Delta 0.00001 ng/L (0-12)
[2023-06-16 04:26] LABS: Alanine Aminotransferase 39 U/L (0-33); Albumin Level 3.6 g/dL (3.5-5.2); Alkaline Phosphatase 106 U/L (35-105); Anion Gap 14.8 (5-19); Aspartate Amino Transferase 30 U/L (0-32); Blood Urea Nitrogen 12 mg/dL (6-20); Calcium 9.4 mg/dL (8.5-10.5); Carbon Dioxide 24 mmol/L (22-29); Chloride 100 mmol/L (98-107); Globulin 2.9 g/dL (1.3-4.6); Glomerular Filtration Rate 88.6 mL/min (90-130); Glucose 322 mg/dL (65-115); Osmolality Calculated 292 mOsm/kg (285-295); Potassium 3.8 mmol/L (3.5-5.1); Sodium 135 mmol/L (136-145); Thyroid Stimulating Hormone 1.98 uIU/mL (0.27-4.20); Total Bilirubin 0.8 mg/dL (0.15-1.2); Total Protein 6.5 g/dL (6.6-8.7)
[2023-06-16 07:15] LABS: Estmated Average Glucose 235; Hemoglobin A1C 9.8 % (4.0-6.0)
[2023-06-16] MEDS: pantoprazole DR 40 mg Tablet PO ×2 (08:42→08:53)
[2023-06-16 11:06] LABS: Partial Thromboplastin Time 54.5 SECONDS (23.9-36.7)
[2023-06-16] MEDS: acetaminophen 325 mg Tablet 650 MG PO (13:21)
--- NOTE | 2023-06-16 14:48 | P.PN_ITS ---
Subjective 2 Subjective: Patient was seen this morning, no chest pain, no palpitations no shortness of breath, she tells me that she did have a colonoscopy before her gallbladder surgery and for that period of time she was relatively immobile, more bedbound, but since then she has been mobile, recent travel, no prolonged immobility recently, no significant trauma, we discussed her DVT in her bilateral PEs, will have her follow-up with hematology oncology as outpatient, for consideration of testing for factor V, and hereditary hypercoagulability is as she is on heparin currently, that would interfere with the results, Vitals/I&O/Wt Last Vital Signs Temp 97.7 F 06/16/23 12:38 Pulse 84 06/16/23 14:43 Resp 17 06/16/23 12:00 BP 101/76 06/16/23 12:00 Pulse Ox 94 06/16/23 12:00 O2 Del Method Room Air 06/16/23 12:00 06/15/23 06/16/23 06/16/23 22:59 06:59 14:59 Intake Total 561.448 / 561.448 560.4 / 560.4 Output Total 500 / 500 200 / 200 Balance 61.448 / 61.448 360.4 / 360.4 Weight last 48 hrs Weight 95.254 kg Weight 95.254 kg Weight 92.986 kg Physical Exam 2 Const: COMMON NORMALS: no acute distress and patient oriented x3 Resp: COMMON NORMALS: normal respiratory effort, No retractions, No use of accessory muscles and clear to auscultation bilaterally AUSCULTATION: clear to auscultation bilaterally Cardio: COMMON NORMALS: regular rate, regular rhythm, S1 normal heart sound present and S2 normal heart sound present RATE: regular rate RHYTHM: r egular rhythm HEART SOUNDS: S1 normal heart sound present and S2 normal heart sound present GI: COMMON NORMALS: Normal to inspection, nondistended, normoactive bowel sounds present and non-tender Extremity: COMMON NORMALS: no pedal edema Neuro: COMMON NORMALS: patient oriented x3 Psych: COMMON NORMALS: mental status grossly normal Data 06/16/23 03:10 06/16/23 03:10 A&P Assessment and plan (1) Acute deep vein thrombosis (DVT) of left lower extremity: (2) Pulmonary embolism: Plan 52-year-old lady without known significant comorbidities presenting to the hospital with acute onset of left lower extremity swelling and shortness of breath. Possibly her gallbladder surgery and colonoscopy and relative immobility during those surgeries predisposed patient to hypercoagulable events She will need to follow-up with oncology as outpatient for factor V, hereditary hypercoagulability's, currently on heparin drip which would interfere with results Recent diagnosis of left lower extremity DVT. Records requested from [facility]. Discovery of bilateral pulmonary embolism today. Patient is saturating 91 to 93% on room air currently, no significant shortness of breath today Started on heparin drip, closely monitor PTT and platelet while on the heparin infusion. Plan to transition to DOAC's at the time of discharge. Would not be considered Eliquis failure as patient only had 4 tablets of 5 mg each prior to presentation. Closely monitor respiratory status Supplemental O2 to keep saturation greater than 92%. Monitor for any signs of developing pneumonia or pulmonary infarction. Echocardiogram to evaluate for right heart strain. A1c 9.8, type 2 diabetes mellitus, low-dose sliding scale Plan for today continue heparin drip, for at least 24 hours, monitor on MedSurg, up out of bed, telemetry monitoring, cardiac echo, blood sugar monitoring Attestations 2 Medical Necessity Statement*: Patient requires hospitalization for DVT, PE, Diagnoses Acute deep vein thrombosis (DVT) of left lower extremity I82.402 Pulmonary embolism I26.99
[2023-06-16 15:32] LABS: Glucose Point of Care 367 mg/dL (70-110)
[2023-06-16 16:32] LABS: Glucose Point of Care 322 mg/dL (70-110)
--- NOTE | 2023-06-16 17:27 | PC.NURSE ---
Report called to second floor, when patient finishes her evening meal she will transfer to second floor room 250-1.
[2023-06-16] MEDS: insulin lispro 100 unit/1 mL SUBCUT (17:42)
[2023-06-16] MEDS: heparin drip 25,000 UNIT/500 ML PREMIX 26 UNIT IV (17:47)
[2023-06-16 18:17] LABS: Partial Thromboplastin Time 56.7 SECONDS (23.9-36.7)
[2023-06-16 20:34] LABS: Glucose Point of Care 231 mg/dL (70-110)
[2023-06-16 23:19] LABS: Partial Thromboplastin Time 73.7 SECONDS (23.9-36.7)
[2023-06-17 03:59] VITALS: BP 104/68; PULSE 88; RESP 20; TEMP 36.8; O2SAT 92
[2023-06-17 05:11] LABS: Basophils # 0.1 10^3/uL (0.0-0.1); Basophils % 0.6 %; Eosinophils # 0.2 10^3/uL (0.0-0.8); Eosinophils % 2.4 %; Hematocrit 34.5 % (36-47); Lymphocytes # 1.6 10^3/uL (0.8-4.8); Mean Corpuscular HGB Conc 33.9 g/dL (30-55); Mean Corpuscular Hemoglobin 30.4 pg (27-33); Mean Corpuscular Volume 89.6 fl (85-98); Mean Platelet Volume 10.3 fL (7.4-10.4); Monocytes # 0.8 10^3/uL (0.2-0.9); Neutrophils % 68.4 %; Nucleated Red Blood Cells % 0 %; Platelet Count 163 10^3/cmm (157-399); Red Blood Count 3.85 10^6/uL (3.85-5.65); Red Cell Distribution Width 12.1 % (12.1-15.1); White Blood Count 8.47 10^3/uL (3.29-11.43)
[2023-06-17 05:24] LABS: Partial Thromboplastin Time 32.6 SECONDS (23.9-36.7)
[2023-06-17 05:31] LABS: Alanine Aminotransferase 37 U/L (0-33); Albumin Level 3.5 g/dL (3.5-5.2); Alkaline Phosphatase 104 U/L (35-105); Anion Gap 14.2 (5-19); Aspartate Amino Transferase 33 U/L (0-32); Blood Urea Nitrogen 11 mg/dL (6-20); Carbon Dioxide 23 mmol/L (22-29); Chloride 105 mmol/L (98-107); Globulin 2.7 g/dL (1.3-4.6); Glomerular Filtration Rate 105.8 mL/min (90-130); Glucose 246 mg/dL (65-115); Magnesium 1.9 mg/dL (1.7-2.3); Osmolality Calculated 294 mOsm/kg (285-295); Phosphorus 3.7 mg/dL (2.5-4.5); Potassium 4.2 mmol/L (3.5-5.1); Sodium 138 mmol/L (136-145); Total Bilirubin 0.8 mg/dL (0.15-1.2); Total Protein 6.2 g/dL (6.6-8.7)
[2023-06-17 06:00] VITALS: PULSE 84
[2023-06-17] MEDS: heparin 5,000 unit/mL INJ 1 mL IV (06:00)
[2023-06-17 06:37] LABS: Glucose Point of Care 210 mg/dL (70-110)
[2023-06-17 07:16] VITALS: BP 96/64; PULSE 78; RESP 16; TEMP 36.6; O2SAT 97
[2023-06-17] MEDS: insulin lispro 100 unit/1 mL SUBCUT (07:42)
[2023-06-17] MEDS: pantoprazole DR 40 mg Tablet PO (08:22)
[2023-06-17] MEDS: apixaban 5 mg Tablet 10 MG PO (08:22)
--- NOTE | 2023-06-17 10:24 | PC.CHAP ---
Pastoral Care Encounter/Spiritual Assessment Type of Contact [] Declined ultimate hoops scoreboard operator visit [] Patient/Family/Request visit [] Outpatient visit [] Follow-up visit [] Physician referral [] Code/Alert [x] Routine visit [] Staff referral [] Actively dying [] Patient sleeping [] Family support [] [] Out of room [] Palliative care [] [x] Receiving care in room [] Pre-surgical visit [] Trauma [] Long length of stay [] ICU visit [] Other: Relational/Emotional Strength [x] Patient feels connected with others/family/visitors/staff [] Distress [] Loneliness/isolation [] Abandonment Spirituality of Patient [x] Person of Herminia [] Attends Christianity of their [place] [x] Believes in Prayer [] Reads Bible or Taoist materials [] There are Spiritual issues to be addressed Musculoskeletal Physician Interventions [x] Prayer [x] Active listening [x] Non-anxious presence [x] Spiritual/emotional support [] Crisis/trauma care [x] Spiritual counseling [] Bereavement support [] Provided bereavement packet [] Provided Bible/devotional materials [] Provided toy/stuffed animal, coloring book to patient or family member [] Provided Communion [] Anointing/[place] [] Salvation [x] Completed spiritual assessment [] Other: Impact on Illness or Injury [] Angry [] Fearful [] Anxious [] Often cries [] Exhaustion [] Unable to work [] Unable to attend restorationist [] Unable to walk/stand [] Unable to read [] Unable to drive [] Unable to eat/drink [] Unable to sleep [] Unable to be with family [] Patient intubated [] Other: Summary has blood clot in leg well go home when clot is dissoved checking with doctor before she well go home Time spent with patient 10 mins
--- NOTE | 2023-06-17 10:55 | P.DS_ITS ---
Discharge Providers Date of Admission: 06/15/23 22:10 Date of Discharge: June 17, 2023 Attending Provider at Admission: Yuliana Eckert MD Attending Provider at Discharge: Ten Glynn MD Primary Care Provider: April Pina APN Diagnoses at Discharge Discharge Diagnosis (1) Acute deep vein thrombosis (DVT) of left lower extremity: Status: Acute (2) Pulmonary embolism: Status: Acute Reason for Visit Reason for Visit: right leg swollen Hospital Course Hospital Course Kaley Dukes is a 52 year old female who was in her usual state of health until Wednesday night (today's Wednesday night) when she went to bed feeling slightly flushed overall. Next morning she woke up and noticed that her left leg was acutely swollen and painful. She followed up at [facility] where she was diagnosed with acute DVT of the left leg. She was started on Eliquis 5 mg p.o. twice daily of which she took 4 pills. The same time as noticing the left leg swelling she had also noticed that she was feeling short of breath with less than usual activity. She states that moving around within the house was taking her breath away which is pretty unusual for her. She presented to the ER with these complaints and was found to have bilateral PE. Patient denies any past history of known DVT or PE or other procoagulant disorder. She is on hormone replacement therapy with vaginal estrogens for the last 12 years. She had a total hysterectomy at age 34 for endometriosis. She has never been on oral or injectable HRT. No recent history of prolonged travel. 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 No known underlying rheumatological or immunological disorder. No history of malignancy. She had a recent cholecystectomy in May 2023. Procedures was overall uncomplicated. She did not need any central lines or other IV access in the groin or legs. This is a 52-year-old female who presents [facility] for a DVT and bilateral PEs, monitored as inpatient, no significant right heart strain seen on CT angiogram, ambulating without significant symptomatology on room air, hemoglobin remained stable, overall clinically improved, will be discharged on Eliquis therapy. In terms of etiology, she did recently have surgery back in May, had a colonoscopy and then a cholecystectomy, she is a bit immobile after the surgeries, and then she was taking topical estrogen cream,. I advised her to continue to be mobile, stop topical estrogen cream, follow-up with Dr. Pandey as outpatient for consideration of hypercoagulability panel Patient is newly diagnosed type 2 diabetes mellitus, A1c 9.8, discharged on diabetic instructions, metformin, glucometer see primary care provider next week Physical Exam Const: COMMON NORMALS: no acute distress and patient oriented x3 Resp: COMMON NORMALS: normal respiratory effort, No retractions, No use of accessory muscles and clear to auscultation bilaterally AUSCULTATION: clear to auscultation bilaterally Cardio: COMMON NORMALS: regular rate, regular rhythm, S1 normal heart sound present and S2 normal heart sound present RATE: regular rate RHYTHM: regular rhythm HEART SOUNDS: S1 normal heart sound present and S2 normal heart sound present GI: COMMON NORMALS: Normal to inspection, nondistended, normoactive bowel sounds present and non-tender Extremity: COMMON NORMALS: no pedal edema Neuro: COMMON NORMALS: patient oriented x3 Psych: COMMON NORMALS: mental status grossly normal Discharge Data Studies Completed and Pending Completed Studies During Hospitalization Category Date Time Status CT angio chest PE protcl [id number] Stat Cat Scan 06/15/23 19:38 Completed Pending at discharge Category Date Time Status LETI Profile Rheumatology AM LABS Lab 06/16/23 17:47 Received Complete Blood Count w/Auto AM LABS Lab 06/18/23 04:00 Ordered Complete Blood Count w/Auto AM LABS Lab 06/19/23 04:00 Ordered Comprehensive Metabolic Panel AM LABS Lab 06/18/23 04:00 Ordered Comprehensive Metabolic Panel AM LABS Lab 06/19/23 04:00 Ordered Magnesium AM LABS Lab 06/18/23 04:00 Ordered Magnesium AM LABS Lab 06/19/23 04:00 Ordered PTT [Partial Thromboplastin Time] Timed Lab 06/17/23 11:00 Ordered Phosphorus AM LABS Lab 06/18/23 04:00 Ordered Phosphorus AM LABS Lab 06/19/23 04:00 Ordered CV. echo complete* [id number] Routine Ultrasound 06/15/23 22:39 Taken Radiology Impressions Chest CTA 06/15/23 19:38 IMPRESSION: 1. Bilateral acute pulmonary embolism. No saddle embolus or significant RV strain. 2. Hepatic steatosis. ADDENDUM: 06/15/23 [id number] THIS REPORT CONTAINS FINDINGS THAT MAY BE CRITICAL TO PATIENT CARE. The findings were verbally communicated via telephone conference with PAYTON LONG at 9:30 PM SALES OFFICER on 06/15/2023. The findings were acknowledged and understood. Laboratory Results WBC 8.47 10^3/uL (3.29-11.43) 06/17/23 04:58 RBC 3.85 10^6/uL (3.85-5.65) 06/17/23 04:58 Hgb 11.70 g/dL (11.27-16.99) 06/17/23 04:58 Hct 34.5 % (36-47) L 06/17/23 04:58 MCV 89.6 fl (85-98) 06/17/23 04:58 MCH 30.4 pg (27-33) 06/17/23 04:58 MCHC 33.9 g/dL (30-55) 06/17/23 04:58 RDW 12.1 % (12.1-15.1) 06/17/23 04:58 Plt Count 163 10^3/cmm (157-399) 06/17/23 04:58 MPV 10.3 fL (7.4-10.4) 06/17/23 04:58 Neut % (Auto) 68.4 % 06/17/23 04:58 Lymph % (Auto) 19.0 % 06/17/23 04:58 Atlantic % (Auto) 9.0 % 06/17/23 04:58 Eos % (Auto) 2.4 % 06/17/23 04:58 Baso % (Auto) 0.6 % 06/17/23 04:58 Neut # (Auto) 5.80 10^3/uL (1.8-7.7) 06/17/23 04:58 Lymph # (Auto) 1.6 10^3/uL (0.8-4.8) 06/17/23 04:58 Atlantic # (Auto) 0.8 10^3/uL (0.2-0.9) 06/17/23 04:58 Eos # (Auto) 0.2 10^3/uL (0.0-0.8) 06/17/23 04:58 Baso # (Auto) 0.1 10^3/uL (0.0-0.1) 06/17/23 04:58 Nucleated RBC % (auto) 0 % 06/17/23 04:58 Nucleated RBCs # 0.0 /100WBC 06/17/23 04:58 APTT 32.6 SECONDS (23.9-36.7) D 06/17/23 04:58 Sodium 138 mmol/L (136-145) 06/17/23 04:58 Potassium 4.2 mmol/L (3.5-5.1) 06/17/23 04:58 Chloride 105 mmol/L (98-107) 06/17/23 04:58 Carbon Dioxide 23 mmol/L (22-29) 06/17/23 04:58 Anion Gap 14.2 (5-19) 06/17/23 04:58 BUN 11 mg/dL (6-20) 06/17/23 04:58 Creatinine 0.6 mg/dL (0.5-0.9) 06/17/23 04:58 GFR Calculation 105.8 mL/min (90-130) 06/17/23 04:58 Glucose 246 mg/dL (65-115) H 06/17/23 04:58 POC Glucose 210 mg/dL (70-110) H 06/17/23 06:26 Estimat Average Glucose 235 06/16/23 03:10 Hemoglobin A1c 9.8 % (4.0-6.0) H 06/16/23 03:10 Calculated Osmolality 294 mOsm/kg (285-295) 06/17/23 04:58 Calcium 9.0 mg/dL (8.5-10.5) 06/17/23 04:58 Phosphorus 3.7 mg/dL (2.5-4.5) 06/17/23 04:58 Magnesium 1.9 mg/dL (1.7-2.3) 06/17/23 04:58 Total Bilirubin 0.8 mg/dL (0.15-1.2) 06/17/23 04:58 AST 33 U/L (0-32) H 06/17/23 04:58 ALT 37 U/L (0-33) H 06/17/23 04:58 Alkaline Phosphatase 104 U/L (35-105) 06/17/23 04:58 Troponin T Baseline < 6 ng/L (0-10) 06/15/23 20:03 Troponin T 120 Minute 6.00 ng/L (0-10) 06/15/23 21:20 Delta Troponin T 0.07089 ABS# (0-10) 06/15/23 21:20 Troponin T Hi Sens 6Hr 6.00 ng/L (0-10) 06/16/23 03:10 Troponin T Hi Sens 6Hr Delta 0.62235 ng/L (0-12) 06/16/23 03:10 NT-Pro-B Natriuret Pep < 36 pg/mL (0-125) 06/15/23 20:03 Total Protein 6.2 g/dL (6.6-8.7) L 06/17/23 04:58 Albumin 3.5 g/dL (3.5-5.2) 06/17/23 04:58 Globulin 2.7 g/dL (1.3-4.6) 06/17/23 04:58 TSH 1.98 uIU/mL (0.27-4.20) 06/16/23 03:10 Vitals Last Vital Signs Temp 98 F 06/17/23 07:16 Pulse 78 06/17/23 07:16 Resp 16 06/17/23 07:16 BP 96/64 06/17/23 07:16 Pulse Ox 97 06/17/23 07:16 O2 Del Method Room Air 06/17/23 07:16 Discharge Plan Discharge Patient Disposition: Home Condition: Stable Prescriptions: New (DME) glucometer testing kit See Rx Instructions .Route .MEDSUPPLY Qty: 1 0RF Rx Instructions: Glucometer testing kit, check blood sugar 3 times daily -Lancets #100, ? Strips #100 Eliquis DVT-PE Treat 30D Start 5 mg (74 tabs) tablets,dose pack See Rx Instructions .ROUTE .COMPLEX Qty: 74 0RF Rx Instructions: orally per package directions metformin 1,000 mg tablet extended release 24 hr 1,000 mg PO DAILY 30 Days Qty: 30 0RF Continued pantoprazole [Protonix] 40 mg tablet,delayed release (DR/EC) 40 mg PO BID 60 Days Qty: 120 5RF acyclovir 400 mg Tablet 400 mg PO TID bupropion HCl 150 mg Tablet Extended Release 24 Hr 150 mg PO DAILY Discontinued Hormone Cream cream 1 applic topical DAILY Rx Instructions: Biest HCL XL Prog/Test 3mg/85mg/1.5mg 0.5mL (2 clicks) to rotationg skin sites daily ibuprofen 800 mg Tablet 800 mg PO TID PRN (Reason: pain) Eliquis 5 mg Tablet 5 mg PO BID Discharge Orders: Discharge Order (Routine); Ordered 06/17/23 Ordered By: Ten Glynn Referrals: Teo Rangel MD [Physician] - 1 month Franklyn Pandey MD [Hospitalist] - 1 month (pe and dvt) Yovani,OLGA Chen [Primary Care Provider] - 06/24/23 1:40 pm Discharge Diet: Regular Discharge Activity: Resume usual activity Patient Instructions: Pulmonary Embolism (DC), Deep Vein Thrombosis (ED), Type 2 Diabetes in Adults: New Diagnosis (DC), Meal Planning with the Plate Method (DC), What to Do if Your Blood Sugar is Low (ED), Type 2 Diabetes Management for Adults (DC), Opioid Safety Activity Restrictions/Additional Instructions: - For your DVT and PE, take Eliquis 10 mg twice daily for 7 days followed by 5 mg twice daily thereafter -For your type 2 diabetes mellitus Please monitor your blood sugars closely -Monitor your blood sugars 3 times daily as after meals -Please record your blood sugars, and a blood sugar log -If your blood sugar is greater than 500 go to the emergency room -If your blood sugar is less than 60 or at anytime you feel lightheaded or dizzy or diaphoretic or have chest palpitations check your blood sugar, and eat a hard candy or drink orange juice and go immediately to the emergency room -Remember hypoglycemia kills, so if his blood sugar is less than 60 we have to increase it by taking in a sugary meal such as a hard candy or orange juice and go to the emergency room -If you have any questions please call us where here to help -See primary care provider early next week to recheck CBC and CMP -If you have bloody or black stools please go to the emergency room -If you have worsening shortness of breath, chest pain please go to emergency room -Please do not take ibuprofen or naproxen or NSAID with blood thinner Eliquis -Stop taking your topical estrogen Discharge Attestations Time Spent in Discharge Care*: greater than 30 min Quality Metrics Clinical Quality Measures [ Venous Thromboembolism { Contraindication to Overlap Therapy: Overlap treatment not indicated; VTE Discharge Education: Education about anticoagulant therapy/Care Notes given;}] Coding Level of Care Code 32504 Total time (in minutes) for Discharge: 45 Diagnoses Acute deep vein thrombosis (DVT) of left lower extremity I82.402 Pulmonary embolism I26.99
[2023-06-17 11:06] LABS: Glucose Point of Care 208 mg/dL (70-110)
[2023-06-17 12:15] VITALS: BP 96/64; PULSE 78; RESP 16; TEMP 36.6; O2SAT 97
[2023-06-18 12:25] LABS: COMPLEMENT, TOTAL (CH50) >60 U/mL (31-60)
[2023-06-18 12:44] LABS: COMPLEMENT COMPONENT C3C 207 mg/dL (83-193); COMPLEMENT COMPONENT C4C 38 mg/dL (15-57)
[2023-06-18 14:46] LABS: CENTROMERE B ANTIBODY <1.0 NEG AI (<1.0 NEG); JO-1 ANTIBODY <1.0 NEG AI (<1.0 NEG); RNP ANTIBODY <1.0 NEG AI (<1.0 NEG); SCL-70 ANTIBODY <1.0 NEG AI (<1.0 NEG); SJOGREN'S ANTIBODY (SS-A) <1.0 NEG AI (<1.0 NEG); SM ANTIBODY <1.0 NEG AI (<1.0 NEG); SS-B <1.0 NEG AI (<1.0 NEG)
[2023-06-21 04:14] LABS: ANA SCREEN, IFA NEGATIVE (NEGATIVE)
[2023-06-21 12:29] LABS: THYROID PEROXIDASE ANTIBODIES <1 IU/mL (<9)
[2023-06-25 17:24] LABS: DNA AB (DS) CRITHIDIA,IFA NEGATIVE (NEGATIVE)
== END 2023-06-17 12:16 | disposition home or self-care (01) | DRG 176 ==
LOC: ER 22:10 → ICU 22:34 → MEDSURG 06-16 18:26
PROVIDERS: Admitting Provider Student in an Organized Health Care Education/Training Program; Emergency Provider Emergency Medicine; PCP Nurse Practitioner Family; Visit Provider Family Medicine
DX: I26.99 Other pulmonary embolism without acute cor pulmonale (principal); I82.402 Acute embolism and thrombosis of unspecified deep veins of left lower extremity; E11.9 Type 2 diabetes mellitus without complications; Z79.01 Long term (current) use of anticoagulants; Z79.84 Long term (current) use of oral hypoglycemic drugs; Z79.890 Hormone replacement therapy
CPT/HCPCS: 36415; 36416; 71275; 80053; 82962; 83036; 83735; 83880; 84100; 84443; 84484; 85025; 85730; 86160; 86162; 86235; 86255; 86376; 93005; 93306; 96365; 96372; 96375; 99285; J0131; J1644; J1815; Q9967

== ENCOUNTER 2023-07-29 08:20 | Oncology outpatient (recurring) (ONCR) | payer BC, SELFPAY ==
[2023-07-29 09:28] LABS: Basophils # 0.1 10^3/uL (0.0-0.1); Basophils % 0.9 %; Eosinophils # 0.1 10^3/uL (0.0-0.8); Eosinophils % 1.2 %; Hematocrit 44.2 % (36-47); Lymphocytes # 1.7 10^3/uL (0.8-4.8); Lymphocytes % 25.4 %; Mean Corpuscular HGB Conc 33.3 g/dL (30-55); Mean Corpuscular Hemoglobin 30.1 pg (27-33); Mean Corpuscular Volume 90.4 fl (85-98); Mean Platelet Volume 10.3 fL (7.4-10.4); Monocytes # 0.4 10^3/uL (0.2-0.9); Monocytes % 5.6 %; Neutrophils # 4.43 10^3/uL (1.8-7.7); Neutrophils % 66.6 %; Nucleated Red Blood Cells % 0 %; Platelet Count 249 10^3/cmm (157-399); Red Blood Count 4.89 10^6/uL (3.85-5.65); Red Cell Distribution Width 12.7 % (12.1-15.1); White Blood Count 6.65 10^3/uL (3.29-11.43)
[2023-07-29 09:42] LABS: D Dimer <= 0.27 ug/mLFEU (0-0.59)
[2023-07-29 09:55] LABS: Alanine Aminotransferase 38 U/L (0-33); Albumin Level 4.4 g/dL (3.5-5.2); Alkaline Phosphatase 82 U/L (35-105); Anion Gap 15.9 (5-19); Aspartate Amino Transferase 24 U/L (0-32); Blood Urea Nitrogen 12 mg/dL (6-20); Calcium 9.3 mg/dL (8.5-10.5); Carbon Dioxide 24 mmol/L (22-29); Chloride 103 mmol/L (98-107); Creatinine Clr Calc Pharmacy 99.6912; Globulin 2.6 g/dL (1.3-4.6); Glomerular Filtration Rate 75.9 mL/min (90-130); Glucose 168 mg/dL (65-115); Osmolality Calculated 292 mOsm/kg (285-295); Potassium 3.9 mmol/L (3.5-5.1); Sodium 139 mmol/L (136-145); Total Bilirubin 0.4 mg/dL (0.15-1.2)
[2023-08-03 16:23] LABS: PROTHROMBIN (FACTOR II) 20210G NEGATIVE
[2023-08-04 17:28] LABS: Factor 5 Leiden Mutation NEGATIVE
== END 2023-08-05 23:59 | disposition home or self-care (01) ==
PROVIDERS: PCP Nurse Practitioner Family; Visit Provider Internal Medicine
DX: I82.409 Acute embolism and thrombosis of unspecified deep veins of unspecified lower extremity (principal); I26.99 Other pulmonary embolism without acute cor pulmonale
CPT/HCPCS: 36415; 80053; 81241; 85025; 85210; 85378

== ENCOUNTER 2023-11-17 12:46 | Oncology outpatient (recurring) (ONCR) | payer BC, SELFPAY ==
[2023-11-17 13:34] LABS: Basophils # 0.1 10^3/uL (0.0-0.1); Basophils % 0.9 %; Eosinophils # 0.1 10^3/uL (0.0-0.8); Eosinophils % 1.4 %; Hematocrit 43.1 % (36-47); Lymphocytes # 2.2 10^3/uL (0.8-4.8); Lymphocytes % 27.7 %; Mean Corpuscular HGB Conc 34.1 g/dL (30-55); Mean Corpuscular Hemoglobin 30.4 pg (27-33); Mean Corpuscular Volume 89.2 fl (85-98); Mean Platelet Volume 10.4 fL (7.4-10.4); Monocytes # 0.5 10^3/uL (0.2-0.9); Monocytes % 6.8 %; Neutrophils # 4.91 10^3/uL (1.8-7.7); Neutrophils % 62.8 %; Nucleated Red Blood Cells % 0 %; Platelet Count 229 10^3/cmm (157-399); Red Blood Count 4.83 10^6/uL (3.85-5.65); Red Cell Distribution Width 12.1 % (12.1-15.1); White Blood Count 7.81 10^3/uL (3.29-11.43)
[2023-11-17 13:45] LABS: D Dimer <= 0.27 ug/mLFEU (0-0.59)
[2023-11-17 13:52] LABS: Alanine Aminotransferase 28 U/L (0-33); Albumin Level 4.5 g/dL (3.5-5.2); Alkaline Phosphatase 70 U/L (35-105); Anion Gap 13.7 (5-19); Aspartate Amino Transferase 19 U/L (0-32); Blood Urea Nitrogen 13 mg/dL (6-20); Calcium 9.3 mg/dL (8.5-10.5); Carbon Dioxide 26 mmol/L (22-29); Chloride 103 mmol/L (98-107); Globulin 2.6 g/dL (1.3-4.6); Glomerular Filtration Rate 75.9 mL/min (90-130); Glucose 110 mg/dL (65-115); Osmolality Calculated 289 mOsm/kg (285-295); Potassium 3.7 mmol/L (3.5-5.1); Sodium 139 mmol/L (136-145); Total Bilirubin 0.6 mg/dL (0.15-1.2); Total Protein 7.1 g/dL (6.6-8.7)
== END 2023-12-05 23:59 | disposition home or self-care (01) ==
PROVIDERS: PCP Nurse Practitioner Family; Visit Provider Internal Medicine
DX: I87.009 Postthrombotic 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 of unspecified extremity (principal); I26.99 Other pulmonary embolism without acute cor pulmonale
CPT/HCPCS: 36415; 80053; 85025; 85378

== ENCOUNTER 2024-02-09 10:52 | Oncology outpatient (recurring) (ONCR) | payer BC, SELFPAY ==
[2024-02-09 11:31] LABS: Basophils % 0.6 %; Eosinophils # 0.1 10^3/uL (0.0-0.8); Eosinophils % 1.3 %; Hematocrit 43.8 % (36-47); Lymphocytes # 2.1 10^3/uL (0.8-4.8); Mean Corpuscular HGB Conc 34.7 g/dL (30-55); Mean Corpuscular Volume 89.2 fl (85-98); Mean Platelet Volume 10.2 fL (7.4-10.4); Monocytes # 0.5 10^3/uL (0.2-0.9); Monocytes % 7.3 %; Neutrophils # 4.09 10^3/uL (1.8-7.7); Neutrophils % 59.5 %; Nucleated Red Blood Cells % 0 %; Platelet Count 208 10^3/cmm (157-399); Red Blood Count 4.91 10^6/uL (3.85-5.65); Red Cell Distribution Width 11.9 % (12.1-15.1); White Blood Count 6.87 10^3/uL (3.29-11.43)
[2024-02-09 11:56] LABS: Alanine Aminotransferase 25 U/L (0-33); Albumin Level 4.4 g/dL (3.5-5.2); Alkaline Phosphatase 83 U/L (35-105); Anion Gap 17.1 (5-19); Aspartate Amino Transferase 18 U/L (0-32); Blood Urea Nitrogen 12 mg/dL (6-20); Calcium 9.1 mg/dL (8.5-10.5); Carbon Dioxide 24 mmol/L (22-29); Chloride 104 mmol/L (98-107); Globulin 2.5 g/dL (1.3-4.6); Glomerular Filtration Rate 75.6 mL/min (90-130); Glucose 101 mg/dL (65-115); Osmolality Calculated 292 mOsm/kg (285-295); Potassium 4.1 mmol/L (3.5-5.1); Sodium 141 mmol/L (136-145); Total Bilirubin 0.7 mg/dL (0.15-1.2); Total Protein 6.9 g/dL (6.6-8.7)
== END 2024-03-06 23:59 | disposition home or self-care (01) ==
LOC: ONCMED 10:52
PROVIDERS: Nurse Practitioner Family; PCP Nurse Practitioner Family; Visit Provider Internal Medicine
DX: I26.99 Other pulmonary embolism without acute cor pulmonale; I82.402 Acute embolism and thrombosis of unspecified deep veins of left lower extremity
CPT/HCPCS: 36415; 80053; 85025; 85378

== ENCOUNTER 2024-03-07 14:18 | Outpatient (CLI) | payer BC, SELFPAY ==
--- NOTE | 2024-03-07 14:45 | USCV_ITS ---
Kaley Dukes Age: 53 Gender: F : 1970 Exam Date: 03/07/2024 14:49 Ordering Phys: Olesya Mock APRN Technologist: TAISHA Exam Location: [facility] [place] [facility] [place] Indication: H/O LLE DVT. PT CURRENTLY ON BLOOD THINNERS HISTORY: Patient has history of. DVT. PROCEDURES: Venous duplex imaging was performed in only the left lower extremity. The following venous structures were evaluated: common femoral vein, profunda vein, proximal portion of the greater saphenous vein, superficial femoral vein, and the popliteal vein. In addition, the posterior tibial and peroneal trunk were evaluated. Serial compression, augmentation maneuvers, and spectral Doppler flow evaluation were performed. FINDINGS: Non occlusive left femoral vein chronic thrombus. No additional DVT. CONCLUSIONS Non occlusive focal chronic left femoral vein DVT. Dr. Anna Weems DO (Electronically Signed) Final Date: 07 March 2024 16:07 S
== END 2024-03-07 14:19 | disposition home or self-care (01) ==
LOC: RAD 14:19
PROVIDERS: PCP Nurse Practitioner Family; Visit Provider Nurse Practitioner Family
DX: I82.412 Acute embolism and thrombosis of left femoral vein (principal)
CPT/HCPCS: 93971

== ENCOUNTER 2024-04-14 10:50 | Outpatient (CLI) | payer BC, SELFPAY ==
--- NOTE | 2024-04-14 10:55 | MM_ITS ---
WS: [id number] BILATERAL SCREENING DIGITAL TOMOSYNTHESIS MAMMOGRAM WITH CAD HISTORY: SCREENING COMPARISON: 09/24/2014 and 12/23/2012 Bilateral CC and MLO views with tomosynthesis and synthetic mammography submitted. Computer aided det ection analyzed. Breast composition: There are scattered areas of fibroglandular density. No suspicious masses, microc alcifications or architectural distortion. Focal linear asymmetries within each breast but greatest i n the superior LEFT breast. There are small calcifications within the asymmetry on the LEFT. These as ymmetries have been present on prior studies since 2012 and involuting over time. MM/MM scr BI tomosynthesis [id number] IMPRESSION: BI-RADS: 2 - Benign. FOLLOW UP: 1 Year Follow-up
== END 2024-04-14 10:51 | disposition home or self-care (01) ==
LOC: RAD 10:51
PROVIDERS: PCP Nurse Practitioner Family; Visit Provider Nurse Practitioner Family
DX: Z12.31 Encounter for screening mammogram for malignant neoplasm of breast (principal); R92.323 Mammographic fibroglandular density, bilateral breasts; N64.89 Other specified disorders of breast; R92.1 Mammographic calcification found on diagnostic imaging of breast
CPT/HCPCS: 77063; 77067

== ENCOUNTER 2024-06-03 09:44 | Emergency (ER) | payer BC, SELFPAY ==
[2024-06-03 10:34] VITALS: BP 106/72; PULSE 101; RESP 16; TEMP 36.8; O2SAT 98; BMI 25.2
[2024-06-03 10:40] LABS: Basophils % 0.4 %; Eosinophils # 0.1 10^3/uL (0.0-0.8); Eosinophils % 1.2 %; Hematocrit 46.2 % (36-47); Lymphocytes # 1.1 10^3/uL (0.8-4.8); Lymphocytes % 16.6 %; Mean Corpuscular HGB Conc 33.3 g/dL (30-55); Mean Corpuscular Hemoglobin 30.2 pg (27-33); Mean Corpuscular Volume 90.6 fl (85-98); Mean Platelet Volume 10.2 fL (7.4-10.4); Monocytes # 0.4 10^3/uL (0.2-0.9); Neutrophils # 5.04 10^3/uL (1.8-7.7); Neutrophils % 75.7 %; Nucleated Red Blood Cells % 0 %; Platelet Count 155 10^3/cmm (157-399); Red Cell Distribution Width 11.7 % (12.1-15.1); White Blood Count 6.67 10^3/uL (3.29-11.43)
[2024-06-03 10:57] LABS: Alanine Aminotransferase 58 U/L (0-33); Albumin Level 4.6 g/dL (3.5-5.2); Alkaline Phosphatase 165 U/L (35-105); Anion Gap 15.8 (5-19); Aspartate Amino Transferase 44 U/L (0-32); Blood Urea Nitrogen 11 mg/dL (6-20); Calcium 9.6 mg/dL (8.5-10.5); Carbon Dioxide 26 mmol/L (22-29); Chloride 98 mmol/L (98-107); Creatinine Clr Calc Pharmacy 86.9071; Globulin 2.6 g/dL (1.3-4.6); Glomerular Filtration Rate 75.6 mL/min (90-130); Glucose 181 mg/dL (65-115); Lipase 24 U/L (13-60); Osmolality Calculated 286 mOsm/kg (285-295); Potassium 3.8 mmol/L (3.5-5.1); Sodium 136 mmol/L (136-145); Total Bilirubin 0.6 mg/dL (0.15-1.2); Total Protein 7.2 g/dL (6.6-8.7)
--- NOTE | 2024-06-03 11:44 | CTR_ITS ---
PROCEDURE INFORMATION: Exam: CT Abdomen And Pelvis With Contrast Exam date and time: 06/03/2024 11:59 AM Age: 53 years old Clinical indication: Abdominal pain; Prior surgery; Surgery date: 6+ months; Surgery type: ; Hysterectomy; Ventral hernia repair; Gallbladder; Patient HX: PT here via pov with C/O abd pain. PT states she had abd pain x 1 week. PT states she was seen at [facility] and they told her she was constipated and to use laxatives. PT states she has had little bm. PT states that PT was told to come to ED for further evaluation. PT reports nausea and burning sensation in abd. TECHNIQUE: Imaging protocol: Computed tomography of the abdomen and pelvis with contrast. Radiation optimization: All CT scans at this facility use at least one of these dose optimization techniques: automated exposure control; mA and/or kV adjustment per patient size (includes targeted exams where dose is matched to clinical indication); or iterative reconstruction. Contrast material: [id number]; Contrast volume: 100 ml; Contrast route: INTRAVENOUS (IV); COMPARISON: 1. CR XR abdomen 1V* [id number] 05/29/2024 8:[address] angio chest PE protcl [id number] 06/15/2023 9:00 PM RADIATION DOSE METRICS: Total DLP (mGy-cm): 593.87 FINDINGS: Lungs: Lung bases are clear. Diaphragm: There is a small sliding-type hiatal hernia. Liver: There are numerous scattered hypoenhancing liver nodules throughout of the right and left lobes. The largest is in the posterior central left lobe measuring 4.4 x 3.6 cm. Gallbladder and biliary ducts: The gallbladder is absent. There is no intrahepatic or extrahepatic bile duct dilation. Pancreas: There is an irregular hypoenhancing mass in the pancreatic neck measuring approximately 3.9 x 3.0 cm. There is marked atrophy and mild ductal dilation beyond the mass in the pancreatic body and tail. Spleen: The spleen is unremarkable. Adrenal glands: The adrenal glands are unremarkable. Kidneys and ureters: The kidneys are unremarkable. No hydronephrosis or stones. No ureteral dilation. Stomach and bowel: The stomach is nondistended, limiting assessment of wall thickness. There is mild thickening and hypoenhancement of the gastric antral wall where it abuts the liver and pancreatic masses. No sign of ulceration or obstruction. The small bowel is nondilated. The colon is unremarkable. Appendix: The appendix is normal. Intraperitoneal space: There is no free air or significant intraperitoneal free fluid. Vasculature: The portal and splenic veins are patent. There is marked narrowing over short segment of the Deloris splenic confluence. The pancreatic mass encases the Deloris splenic confluence. There is short segment (1 cm) occlusion of the superior mesenteric vein just below the Deloris splenic confluence. There are small gastric varices and right lower quadrant mesenteric varices. There are left renal to lumbar collateral veins. The pancreatic mass abuts the central portion of the splenic artery. The mass does not encase the splenic artery. The mass does not abut or encase the celiac, common hepatic, or superior mesenteric arteries. There is mild aortic atherosclerotic disease. Lymph nodes: No pelvic or retroperitoneal lymphadenopathy. No arnold hepatis lymphadenopathy. 10 mm short axis lymph node in the upper mesentery adjacent to the pancreatic mass. No lymphadenopathy elsewhere in the mesentery. Urinary bladder: The urinary bladder is decompressed, preventing meaningful evaluation of wall thickness. Reproductive: The uterus is absent. There is no adnexal mass or large cyst. Bones/joints: There is mild degenerative disease in the lumbar spine. Soft tissues: The abdominal wall is intact. CT/CT abdomen pelvis w con* [id number] IMPRESSION: 1. Mass in the pancreatic neck consistent with adenocarcinoma. 2. Liver metastases. 3. Possible direct tumor involvement of the gastric antrum without evidence of obstruction or perforation. 4. Solitary enlarged mesenteric lymph node adjacent to the pancreatic mass. Probable amadou metastasis. 5. The pancreatic mass encases the portosplenic confluence. Patent portal and splenic veins with high-grade stenosis at the portosplenic confluence. 6. Short segment occlusion of the superior mesenteric vein at the portosplenic confluence with small varices described above. 7. The mass abuts the proximal splenic artery but does not involve the celiac, common hepatic or superior mesenteric arteries. 8. Incidental findings above. COMMENTS: Consistent with the [employer]'s Incidental Findings Committee white paper (J Am Luisa Radiol 2018): Any incidental renal lesion less than 1 cm or classified as too small to characterize, or any incidental cystic renal lesion characterized as simple-appearing, is likely benign. No follow-up imaging is recommended for these lesions per consensus recommendations based on imaging criteria.
--- NOTE | 2024-06-03 11:44 | W.ED.ABDPA2 ---
HPI - Abdominal Pain General: Chief Complaint: Abdominal Pain Stated Complaint: abd pain Time Seen by Provider: 06/03/24 11:33 History of Present Illness: 53-year-old female who presents emergency room with complaint of abdominal pain. He has intermittently had it for several weeks and last week its gotten quite a bit worse she was seen earlier in the week at [facility] had abdominal pain with cramping she was advised of his constipation to use laxatives. She is currently on Mounjaro for weight loss approximately a year ago she had her gallbladder removed. She has lost considerable amount of weight. She denies any medic easy melena hematemesis coffee-ground emesis. Immediately after her gallbladder surgery she was found to have a left leg DVT that occurred during the postop phase she currently is still on apixaban. Associated Symptoms: Reports nausea; Denies chills, coffee ground emesis, dysuria, fever(s), hematochezia, hematemesis and melena Related Data Home Medications Medication Instructions Recorded Confirmed fezolinetant 45 mg tablet (Veozah) 45 mg PO DAILY 09/10/23 06/03/24 apixaban 5 mg tablet (Eliquis) 5 mg PO BID 06/03/24 06/03/24 dicyclomine 10 mg capsule 10 mg PO TID 06/03/24 06/03/24 pantoprazole 20 mg tablet,delayed 40 mg PO DAILY 06/03/24 06/03/24 release Previous Rx's Medication Instructions Recorded glucometer testing kit #1 ea 06/17/23 hydrocodone 5 mg-acetaminophen 325 1 tab PO Q6H PRN pain #30 tabs 06/03/24 mg tablet lorazepam 2 mg tablet (Ativan) 2 mg PO Q6H PRN Sleep/anxiety #20 06/03/24 tabs promethazine 25 mg tablet 25 mg PO Q6H PRN nausea and 06/03/24 vomiting #20 tabs Allergies Allergy/AdvReac Type Severity Reaction Status Date / Time Penicillins Allergy Mild Unknown Verified 06/03/24 10:39 Review of Systems Const: Denies: fever(s) or chills Card: Denies: chest pain Resp: Denies: dyspnea GI: Reports: abdominal pain and nausea; Denies: hematemesis, coffee ground emesis, hematochezia or melena : Denies: dysuria, urinary frequency or urinary urgency Musc: Denies: neck pain or back pain Skin/Breast: Denies: rash PFSH ED PFSH: Medical History 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 Bilateral pulmonary embolism Left leg DVT Surgical History S/P cholecystectomy History of hysterectomy History of section History of ventral hernia repair Social History Smoking and tobacco/nicotine status: unknown if used tobacco/nicotine Quit status (tobacco/nicotine): has quit using Year quit tobacco: 2015 Former quit date comment: 1 ppd X 20 years Physical Exam Const: GENERAL APPEARANCE: cooperative ORIENTATION/CONSCIOUSNESS: Yes awake, Yes oriented to person, Yes oriented to place and Yes oriented to time HENMT: COMMON NORMALS: normocephalic, atraumatic and hearing grossly normal bilaterally HEAD & SCALP: normocephalic and atraumatic Resp: COMMON NORMALS: normal respiratory effort, No retractions, No use of accessory muscles and clear to auscultation bilaterally AUSCULTATION: clear to auscultation bilaterally Cardio: COMMON NORMALS: regular rate, regular rhythm and No murmurs present (Cardio) RATE: regular rate RHYTHM: regular rhythm GI: COMMON NORMALS: No hepatosplenomegaly present AUSCULTATION: Yes normoactive bowel sounds PALPATION: Yes Tenderness to palpation present (GI) (Epigastric right upper quadrant), No Guarding due to palpation present (GI) and Yes No hepatosplenomegaly present Extremity: COMMON NORMALS: normal to inspection, capillary refill normal, no clubbing, cyanosis or edema, no calf tenderness and no pedal edema Neuro: SENSORIUM/ORIENTATION: Yes oriented to person, Yes oriented to place and Yes oriented to time Skin: COMMON NORMALS: no rashes or lesions noted GENERAL SKIN EXAM: no rashes or lesions noted Course Vital Signs: Vital signs: Vital Signs Temperature 98.2 F 06/03/24 10:34 Pulse Rate 101 H 06/03/24 10:34 Respiratory Rate 16 06/03/24 10:34 Blood Pressure 106/72 06/03/24 10:34 Pulse Oximetry 98 06/03/24 10:34 Oxygen Delivery Me thod Room Air 06/03/24 10:34 MDM - Abdominal Pain Medical Decision Making CT shows liver lesions and a pancreatic mass. Elevation of liver enzymes. Reviewed with radiology this is suspicious for pancreatic cancer with metastasis to the liver. Reviewed findings with the patient. Will have radiology review to see if it is amenable to CT-guided liver biopsy encourage patient follow-up with her primary care as soon as she is able to Wednesday on the day she seen on Wednesday she should call her primary care doctor to try to set up for referral to have this biopsy. Continue the pantoprazole stop Xanax and stop the Mounjaro. She was given Ativan for anxiety and sleep hydrocodone for pain and promethazine for nausea and vomiting. Reviewed with her her diet should be similar to what was advised with her gallbladder reviewed trigger foods that are likely to give her more trouble. She has uncontrollable pain return to the emergency room Medical Records I reviewed the patient's medical records. Lab Data I reviewed the patient's lab results. 06/03/24 10:25 06/03/24 10:25 Labs/Radiology: Radiology Impressions Abdomen/Pelvis CT 06/03/24 11:44 IMPRESSION: 1. Mass in the pancreatic neck consistent with adenocarcinoma. 2. Liver metastases. 3. Possible direct tumor involvement of the gastric antrum without evidence of obstruction or perforation. 4. Solitary enlarged mesenteric lymph node adjacent to the pancreatic mass. Probable amadou metastasis. 5. The pancreatic mass encases the portosplenic confluence. Patent portal and splenic veins with high-grade stenosis at the portosplenic confluence. 6. Short segment occlusion of the superior mesenteric vein at the portosplenic confluence with small varices described above. 7. The mass abuts the proximal splenic artery but does not involve the celiac, common hepatic or superior mesenteric arteries. 8. Incidental findings above. COMMENTS: Consistent with the [employer]'s Incidental Findings Committee white paper (J Am Luisa Radiol 2018): Any incidental renal lesion less than 1 cm or classified as too small to characterize, or any incidental cystic renal lesion characterized as simple-appearing, is likely benign. No follow-up imaging is recommended for these lesions per consensus recommendations based on imaging criteria. ADDENDUM: 06/03/24 5776 THIS REPORT CONTAINS FINDINGS THAT MAY BE CRITICAL TO PATIENT CARE. The findings and recommendations were personally verbally communicated via telephone conference with ABDON RAO at 1:27 PM CORRECTIONAL PROGRAM OFFICER on 06/03/2024. The findings were acknowledged and understood. Laboratory Results WBC 6.67 10^3/uL (3.29-11.43) 06/03/24 10:25 RBC 5.10 10^6/uL (3.85-5.65) 06/03/24 10:25 Hgb 15.40 g/dL (11.27-16.99) 06/03/24 10:25 Hct 46.2 % (36-47) 06/03/24 10:25 MCV 90.6 fl (85-98) 06/03/24 10:25 MCH 30.2 pg (27-33) 06/03/24 10:25 MCHC 33.3 g/dL (30-55) 06/03/24 10:25 RDW 11.7 % (12.1-15.1) L 06/03/24 10:25 Plt Count 155 10^3/cmm (157-399) L 06/03/24 10:25 MPV 10.2 fL (7.4-10.4) 06/03/24 10:25 Neut % (Auto) 75.7 % 06/03/24 10:25 Lymph % (Auto) 16.6 % 06/03/24 10:25 [place] % (Auto) 6.0 % 06/03/24 10:25 Eos % (Auto) 1.2 % 06/03/24 10:25 Baso % (Auto) 0.4 % 06/03/24 10:25 Neut # (Auto) 5.04 10^3/uL (1.8-7.7) 06/03/24 10:25 Lymph # (Auto) 1.1 10^3/uL (0.8-4.8) 06/03/24 10:25 [place] # (Auto) 0.4 10^3/uL (0.2-0.9) 06/03/24 10:25 Eos # (Auto) 0.1 10^3/uL (0.0-0.8) 06/03/24 10:25 Baso # (Auto) 0.0 10^3/uL (0.0-0.1) 06/03/24 10:25 Nucleated RBC % (auto) 0 % 06/03/24 10:25 Nucleated RBCs # 0.0 /100WBC 06/03/24 10:25 Sodium 136 mmol/L (136-145) 06/03/24 10:25 Potassium 3.8 mmol/L (3.5-5.1) 06/03/24 10:25 Chloride 98 mmol/L (98-107) 06/03/24 10:25 Carbon Dioxide 26 mmol/L (22-29) 06/03/24 10:25 Anion Gap 15.8 (5-19) 06/03/24 10:25 BUN 11 mg/dL (6-20) 06/03/24 10:25 Creatinine 0.8 mg/dL (0.5-0.9) 06/03/24 10:25 GFR Calculation 75.6 mL/min (90-130) L 06/03/24 10:25 Glucose 181 mg/dL (65-115) H 06/03/24 10:25 Calculated Osmolality 286 mOsm/kg (285-295) 06/03/24 10:25 Calcium 9.6 mg/dL (8.5-10.5) 06/03/24 10:25 Total Bilirubin 0.6 mg/dL (0.15-1.2) 06/03/24 10:25 AST 44 U/L (0-32) H 06/03/24 10:25 ALT 58 U/L (0-33) H 06/03/24 10:25 Alkaline Phosphatase 165 U/L (35-105) H 06/03/24 10:25 Total Protein 7.2 g/dL (6.6-8.7) 06/03/24 10:25 Albumin 4.6 g/dL (3.5-5.2) 06/03/24 10:25 Globulin 2.6 g/dL (1.3-4.6) 06/03/24 10:25 Lipase 24 U/L (13-60) 06/03/24 10:25 Urine Color Yellow (Yellow) 06/03/24 12:13 Urine Appearance Clear (CLEAR) 06/03/24 12:13 Urine pH 5.0 (5-7) 06/03/24 12:13 Ur Specific [place] 1.028 (1.005-1.030) 06/03/24 12:13 Urine Protein Negative (Negative) 06/03/24 12:13 Urine Glucose (UA) Negative (Normal) 06/03/24 12:13 Urine Ketones Trace (Negative) 06/03/24 12:13 Urine Blood Negative (Negative) 06/03/24 12:13 Urine Nitrate Negative (Negative) 06/03/24 12:13 Urine Bilirubin Negative (Negative) 06/03/24 12:13 Urine Urobilinogen 1.0 mg/dL (Negative) 06/03/24 12:13 Ur Leukocyte Esterase Negative (Negative) 06/03/24 12:13 Urine RBC 0-2 /hpf (0-2) 06/03/24 12:13 Urine WBC 0-5 /hpf (0-5) 06/03/24 12:13 Ur Squamous Epith Cells 0-5 /hpf (0-5) 06/03/24 12:13 Amorphous Sediment Not Reportable 06/03/24 12:13 Urine Bacteria None seen /hpf (NONE) 06/03/24 12:13 Hyaline Casts 0-4 /lpf H 06/03/24 12:13 All radiology interpretation(s) finalized by discharge Discharge Plan Discharge Patient Disposition: Home Clinical Impression: Pancreatic mass, Metastasis to liver Condition: Stable Prescriptions: New hydrocodone-acetaminophen 5-325 mg tablet 1 tab PO Q6H PRN (Reason: pain) Qty: 30 0RF promethazine 25 mg tablet 25 mg PO Q6H PRN (Reason: nausea and vomiting) Qty: 20 0RF lorazepam [Ativan] 2 mg tablet 2 mg PO Q6H PRN (Reason: Sleep/anxiety) Qty: 20 0RF Discontinued alprazolam 1 mg tablet 0.5 mg PO BID Mounjaro 7.5 mg/0.5 mL pen injector 7.5 mg SUBCUT Q7D No Action Veozah 45 mg tablet 45 mg PO DAILY (DME) glucometer testing kit See Rx Instructions .Route .MEDSUPPLY Qty: 1 0RF Rx Instructions: Glucometer testing kit, check blood sugar 3 times daily -Lancets #100, ? Strips #100 pantoprazole 20 mg tablet,delayed release (DR/EC) 40 mg PO DAILY dicyclomine 10 mg capsule 10 mg PO TID Eliquis 5 mg tablet 5 mg PO BID Discharge Orders: Discharge ED (Routine); Ordered 06/03/24 Ordered By: Abdon Rao Referrals: April Pina APN [Primary Care Provider] - Discharge Diet: As Directed Discharge Activity: Increase activity as tolerated Patient Instructions: Opioid Safety, Pain Management Activity Restrictions/Additional Instructions: Thank you for choosing [facility] for your healthcare needs today. It is very important that you follow up as instructed or that you return to the Emergency Department should you have concerns or if your condition changes or worsens in any way. You were seen in the emergency room for abdominal pain. CT showed areas in the liver and the pancreas concerning for possible cancer. Contact your primary care doctor on Wednesday for referral for biopsy. We will have your scan reviewed by radiology to see if they feel that they could perform a CT-guided biopsy on some of the lesions in the liver. Continue your pantoprazole you were previously prescribed. Stop the Mounjaro completely. You were given lorazepam (anxiety/sleep), hydrocodone (pain) and promethazine (nausea and vomiting). Coding Level of Care Code ED Public Address Announcer for Patrice Heredia
[2024-06-03] MEDS: iohexol 350 mg/mL 500 mL Btl (per mL) IV (12:02)
[2024-06-03 12:34] LABS: Bilirubin Urine Negative (Negative); Blood Urine Negative (Negative); Glucose Urine UA Negative (Normal); Ketones Urine Trace (Negative); Leukocyte Esterase Urine Negative (Negative); Nitrate Urine Negative (Negative); Protein Urine Negative (Negative); Specific Gravity, Urine 1.028 (1.005-1.030); Urine Appearance Clear (CLEAR); Urine Color Yellow (Yellow)
[2024-06-03 12:39] LABS: Add Urine Microscopic? YES; Bacteria Urine None Seen /hpf; Hyaline Casts Urine 0-4 /lpf; RBC Urine 0-2 /hpf (0-2); Squamous Epithelial Cell Urine 0-5 /hpf (0-5); WBC Urine 0-5 /hpf (0-5)
[2024-06-03 13:45] VITALS: BP 107/64; PULSE 82; O2SAT 98
== END 2024-06-03 13:45 | disposition home or self-care (01) ==
PROVIDERS: Emergency Medicine; Emergency Provider Family Medicine; PCP Nurse Practitioner Family
DX: K86.89 Other specified diseases of pancreas (principal); C78.7 Secondary malignant neoplasm of liver and intrahepatic bile duct; Z87.891 Personal history of nicotine dependence
CPT/HCPCS: 36415; 74177; 80053; 81001; 83690; 85025; 99285

== ENCOUNTER 2024-06-28 10:39 | Oncology outpatient (recurring) (ONCR) | payer BC, SELFPAY ==
[2024-06-15 12:55] LABS: Basophils % 0.4 %; Eosinophils # 0.1 10^3/uL (0.0-0.8); Eosinophils % 1.7 %; Hematocrit 43.3 % (36-47); Lymphocytes # 0.8 10^3/uL (0.8-4.8); Lymphocytes % 15.8 %; Mean Corpuscular HGB Conc 32.8 g/dL (30-55); Mean Corpuscular Hemoglobin 29.8 pg (27-33); Mean Corpuscular Volume 90.8 fl (85-98); Monocytes # 0.4 10^3/uL (0.2-0.9); Neutrophils # 3.87 10^3/uL (1.8-7.7); Neutrophils % 73.7 %; Nucleated Red Blood Cells % 0 %; Platelet Count 140 10^3/cmm (157-399); Red Blood Count 4.77 10^6/uL (3.85-5.65); White Blood Count 5.25 10^3/uL (3.29-11.43)
[2024-06-15 13:07] LABS: D Dimer 0.57 ug/mLFEU (0-0.59)
[2024-06-15 13:20] LABS: Alanine Aminotransferase 44 U/L (0-33); Albumin Level 4.4 g/dL (3.5-5.2); Alkaline Phosphatase 210 U/L (35-105); Anion Gap 13.4 (5-19); Aspartate Amino Transferase 37 U/L (0-32); Blood Urea Nitrogen 12 mg/dL (6-20); Calcium 9.7 mg/dL (8.5-10.5); Carbon Dioxide 27 mmol/L (22-29); Chloride 103 mmol/L (98-107); Creatinine Clr Calc Pharmacy 118.1009; Globulin 2.8 g/dL (1.3-4.6); Glomerular Filtration Rate 105.4 mL/min (90-130); Glucose 111 mg/dL (65-115); Osmolality Calculated 288 mOsm/kg (285-295); Potassium 4.4 mmol/L (3.5-5.1); Sodium 139 mmol/L (136-145); Total Bilirubin 0.6 mg/dL (0.15-1.2); Total Protein 7.2 g/dL (6.6-8.7)
== END 2024-07-07 23:59 | disposition home or self-care (01) ==
PROVIDERS: PCP Nurse Practitioner Family; Visit Provider Internal Medicine
DX: Z53.9 Procedure and treatment not carried out, unspecified reason (principal)
CPT/HCPCS: 36415; 80053; 85025; 85378

== ENCOUNTER 2024-07-05 07:44 | Day surgery (SDC) | payer BC, SELFPAY ==
[2024-07-05] VITALS (7 sets, daily range): BP systolic 89–102; BP diastolic 52–67; PULSE 71–80; RESP 15–18; TEMP 36.3–36.5; O2SAT 91–95; BMI 25.8
--- NOTE | 2024-07-05 07:51 | SC_ITS ---
WS: [id number] Exam: C-arm FL for CVA [id number] Date/Time of Exam: 07/05/2024 9:22 AM Reason For Exam: Port placement Single limited AP C-arm image of the upper chest is submitted. The image was obtained for intraoperat roderick visualization during port placement.
[2024-07-05] MEDS: sodium chloride 0.9% 1,000 ML 30 ML IV (08:06)
[2024-07-05 08:24] LABS: Glucose Point of Care 141 mg/dL (70-110)
--- NOTE | 2024-07-05 08:24 | W.PM.OPSUD ---
Surgery/Procedure H&P Update DATE OF PROCEDURE: July 05, 2024 DATE H&P PERFORMED: 06/30/24 H&P UPDATE INFORMATION: I have reviewed H&P completed within last 30 days, I have examined patient prior to procedure and No changes to prior documentation PLANNED PROCEDURE: Operation Date: 07/05/24 09:30 Proposed Procedures p Portacath Placement 76462, Z95.828, C25.9, C87.7(Not Applicable) - Karthik Douglas MD
[2024-07-05] MEDS: vancomycin 1,500 MG/300 ML PIGGYBACK 200 MG IV (08:42)
[2024-07-05] MEDS: heparin, porcine 1,000 unit/mL INJ 10 mL 6000 UNIT IRRIGATION (08:45)
--- NOTE | 2024-07-05 08:59 | P.ANESASSM_ITS ---
Pre-Anesthetic Assessment Height/Weight: Height 1.7 m Weight 74.843 kg Temp Pulse Resp BP Pulse Ox O2 Del Method 97.4 F L 71 18 101/60 95 Room Air 07/05/24 08:02 07/05/24 08:02 07/05/24 08:02 07/05/24 08:02 07/05/24 08:02 07/05/24 08:19 Preop Diagnosis: Pancreatic CA Operation Date: 07/05/24 09:30 Proposed Procedures p Portacath Placement 58751, Z95.828, C25.9, C87.7(Not Applicable) - Karthik Douglas MD Was Beta Yaritza taken within 24 hours: N/A Was Clonidine taken within 24 hours: N/A Last intake: Intake Last Liquid Date 07/04/24 Last Liquid Time 18:00 Last Solid Date 07/04/24 Last Solid Time 18:00 Social No alcohol and No tobacco Exam alert, oriented x 3, clear to auscultation bilaterally and regular rate & rhythm Airway Submandibular: within normal limits Cervical ROM: within normal limits Mallampati: Class II Dentition: full History/ROS No significant history except as noted and No significant complaints Pulmonary None reported CV/HEM None reported None reported Hepatic Pancreatic CA GI Gastroesophageal Reflux Disease Metabolic Diabetes Mellitus [facility] None reported Neuropsych None reported Anesthetic Plan ASA status: 3 Anesthesia: Anesthesia Evaluation and MAC Risk of > 500 ml blood loss (7ml/kg in children): No Medications/Allergies Home Medications Medication Instructions Recorded Confirmed Last Taken Type glucometer testing kit #1 ea 06/17/23 06/30/24 Unknown Rx fezolinetant 45 mg tablet (Veozah) 45 mg PO DAILY 09/10/23 07/04/24 07/05/24 H istory apixaban 5 mg tablet (Eliquis) 5 mg PO BID 06/03/24 07/04/24 06/20/24 History lorazepam 2 mg tablet (Ativan) 2 mg PO Q6H PRN Sleep/anxiety #20 06/03/24 07/04/24 07/01/24 Rx tabs promethazine 25 mg tablet 25 mg PO Q6H PRN nausea and 06/03/24 07/04/24 07/04/24 Rx vomiting #20 tabs hydrocodone 10 mg-acetaminophen 1 tab PO 6XD PRN Pain (Scale Score 01/09/25 01/28/25 01/29/25 History 325 mg tablet 1-3) tirzepatide 7.5 mg/0.5 mL mg SUBCUT 06/15/24 06/30/24 06/26/24 History subcutaneous pen injector (Mounjaro) prochlorperazine maleate 10 mg 10 mg PO Q4H PRN mild nausea #30 06/29/24 07/05/24 07/05/24 Rx tablet (Compazine) tabs oxycodone 10 mg tablet,crush 10 mg PO BID 30 days #60 tabs 06/30/24 07/04/24 07/05/24 Rx resistant,extended release 12 hr (OxyContin) Allergies Allergy/AdvReac Type Severity Reaction Status Date / Time Penicillins Allergy Mild Unknown Verified 06/30/24 07:47 Current Medications Generic Name Dose Route Start Last Admin Trade Name Freq PRN Reason Stop Dose Admin Sodium Chloride 1,000 mls @ 30 mls/hr 07/05/24 08:00 07/05/24 08:06 Sodium Chloride 0.9% IV 07/06/24 07:59 30 mls/hr .Q24H LILIAN Administration Vancomycin HCl 1,500 mg in 300 mls @ 200 mls/hr 07/05/24 08:24 07/05/24 08:42 Vancocin IV 07/05/24 09:53 200 mls/hr ONCE ONE Administration Protocol [facility] Anesthesia Medical History 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 Bilateral pulmonary embolism Left leg DVT Surgical History S/P cholecystectomy History of hysterectomy History of section History of ventral hernia repair Social History Smoking and tobacco/nicotine status: never used tobacco/nicotine Quit status (tobacco/nicotine): has quit using Year quit tobacco: 2016 Former quit date comment: 1 ppd X 20 years Data Anesthesia Cardiac Studies: Echocardiogram 06/15/23
--- NOTE | 2024-07-05 09:30 | PM.OP ---
Operative Report Date of procedure: July 05, 2024 Pre-op diagnosis: Pancreatic cancer Post-op diagnosis: same Procedure done: Port-a-cath placement Implants: Port-a-cath Specimens removed/disposition: NA Pathology: none sent Surgeon: Karthik Douglas MD Airport Security Screener: SAMANTHA Anesthesia: MAC Estimated blood loss (mL): 20 Condition: stable Disposition: same day Brief History: 53-year-old female with history of pancreatic cancer. Patient presented for port placement. I have discussed the risks and benefits and patient agrees to proceed with port placement Procedure: Patient was brought into the operating room and a timeout was carried out. Procedure was done under MAC. Patient was placed supine with the arms tucked and in Trendelenburg. Patient was prepped and draped in the usual sterile fashion. Using ultrasound guidance the right internal jugular vein was accessed. A guidewire was then placed down to the atriocaval junction using fluoroscopy. The finder needle was removed and the guidewire was secured. I then turned my attention to creating a pocket over the right chest. Make sure to locally infiltrated using plain lidocaine and bupivacaine at the site of the pocket and throughout the tunnel site. I confirmed adequate hemostasis at the pocket. I then proceeded to place the port that was already preassembled and flushed with heparinized saline and the chest pocket. I tunneled the catheter from the chest to the neck at the site where I accessed the internal jugular vein. I measured and adjusted the length of the catheter so it would reach the atrial caval junction. At this point, I used a dilator to dilate the tract into the internal jugular vein using fluoroscopy. I removed the guidewire and proceeded to thread the central venous catheter through the introducer. In the process, I removed the sheath as a completely pushed the catheter into the internal jugular vein. I then confirmed adequate placement of the catheter by performing intraoperative interpretation of fluoroscopy. The tip of the catheter was confirmed to be placed in the atriocaval junction. There were no kinks noted throughout the trajectory of the catheter. I then proceeded to test the port and was satisfied with its functionality. I proceeded to flushed the catheter without any issues. I then hep-locked the port. Skin was closed using deep dermal 3-0 Vicryl, subcuticular 4-0 Monocryl, and Dermabond. Patient was then transferred to PACU without any complications.
--- NOTE | 2024-07-05 11:00 | ANE.PACU2 ---
Inpatient post-anesthesia follow up: Airway intact: Yes Vital signs: Temperature 97.4 F Pulse Rate 72 Respiratory Rate 16 Blood Pressure 101/67 Pulse Oximetry 92 Oxygen Delivery Me thod Room Air Oxygen Flow Rate Fraction of Inspir ed Oxygen Hydration adequate: Yes Nausea and vomiting: No Pain level: 1 Mental status: Baseline
== END 2024-07-05 11:00 | disposition home or self-care (01) ==
PROVIDERS: PCP Nurse Practitioner Family; Visit Provider Student in an Organized Health Care Education/Training Program
DX: C25.9 Malignant neoplasm of pancreas, unspecified (principal); K21.9 Gastro-esophageal reflux disease without esophagitis; E11.9 Type 2 diabetes mellitus without complications; Z79.899 Other long term (current) drug therapy; Z79.01 Long term (current) use of anticoagulants; Z88.0 Allergy status to penicillin; Z87.891 Personal history of nicotine dependence; Z86.718 Personal history of other venous thrombosis and embolism; Z79.85 Long-term (current) use of injectable non-insulin antidiabetic drugs
CPT/HCPCS: 36416; 76000; 77001; 82962; C1788; J1100; J1644; J2250; J2405; J2704; J3370; J7030

== ENCOUNTER 2024-07-23 12:38 | Emergency (ER) | payer BC, SELFPAY ==
[2024-07-23 13:17] VITALS: BP 105/65; PULSE 74; RESP 14; TEMP 36.7; O2SAT 96; BMI 25.5
--- NOTE | 2024-07-23 13:50 | W.ED.ABDPA2 ---
HPI - Abdominal Pain General: Chief Complaint: Abdominal Pain Stated Complaint: cancer pt - abd pain Time Seen by Provider: 07/23/24 13:23 History of Present Illness: 53-year-old female presents with abdominal pain. Patient has stage IV pancreatic cancer with metastatic disease. She has inoperable cancer with approximately 6 months given the left. Patient is to start palliative chemotherapy next week. She presents today because she is just unable to get her pain under control. She does have fentanyl patch along with hydrocodone and reports that just continues to get worse Associated Symptoms: Denies nausea and vomiting Related Data Home Medications ?Medication ?Instructions ?Recorded ?Confirmed fezolinetant 45 mg tablet (Veozah) 45 mg PO DAILY 09/10/23 07/23/24 apixaban 5 mg tablet (Eliquis) 5 mg PO BID 06/03/24 07/23/24 Held on 07/05/24. Instructions: Resume on 07/06/24. hydrocodone 10 mg-acetaminophen 1 tab PO 6XD PRN Pain (Scale Score 06/15/24 07/23/24 325 mg tablet 1-3) tirzepatide 7.5 mg/0.5 mL 7.5 mg SUBCUT Q7D 06/15/24 07/23/24 subcutaneous pen injector (Mounjaro) docusate sodium 100 mg capsule 200 mg PO DAILY 07/23/24 07/23/24 (Colace) polyethylene glycol 3350 17 414 g PO DAILY 07/23/24 07/23/24 gram/dose oral powder (Miralax) Previous Rx's ?Medication ?Instructions ?Recorded glucometer testing kit #1 ea 06/17/23 lorazepam 2 mg tablet (Ativan) 2 mg PO Q6H PRN Sleep/anxiety #20 06/03/24 tabs promethazine 25 mg tablet 25 mg PO Q6H PRN nausea and 06/03/24 vomiting #20 tabs oxycodone 10 mg tablet,crush 10 mg PO BID 30 days #60 tabs 06/30/24 resistant,extended release 12 hr (OxyContin) gemcitabine 200 mg intravenous 1,880 mg IV Q7D #27 ea 07/12/24 solution paclitaxel protein-bound 100 mg 235 mg IV Q7D #9 ea 07/12/24 intravenous suspension (Abraxane) fentanyl 25 mcg/hr transdermal 1 patch transdermal Q72H severe 07/20/24 patch pain 30 days #10 ea prochlorperazine maleate 10 mg 10 mg PO Q4H PRN mild nausea #30 07/21/24 tablet (Compazine) tabs Allergies Allergy/AdvReac Type Severity Reaction Status Date / Time Penicillins Allergy Mild Unknown Verified 07/17/24 09:32 Review of Systems GI: Reports: abdominal pain; Denies: nausea or vomiting PFS ED PFSH: Medical History (Updated 07/23/24 @ 15:09 by Abbe Mart DO) 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 Bilateral pulmonary embolism Left leg DVT Surgical History S/P cholecystectomy History of hysterectomy History of section History of ventral hernia repair Social History Smoking and tobacco/nicotine status: never used tobacco/nicotine Quit status (tobacco/nicotine): has quit using Year quit tobacco: 2015 Former quit date comment: 1 ppd X 20 years Physical Exam Const: COMMON NORMALS: average body habitus, patient oriented x3 and alert Resp: COMMON NORMALS: normal respiratory effort and No use of accessory muscles Cardio: COMMON NORMALS: regular rate and regular rhythm RATE: regular rate RHYTHM: regular rhythm GI: COMMON NORMALS: Soft to palpation PALPATION: Yes Soft to palpation and Yes Tenderness to palpation present (GI) Neuro: COMMON NORMALS: patient oriented x3, moves all extremities and no sensory deficits noted SENSORIUM/ORIENTATION: Yes alert Psych: COMMON NORMALS: mental status grossly normal, Normal thought process present and cooperative THOUGHT PROCESS: Normal thought process present Course Vital Signs: Vital signs: Vital Signs Temperature 98.1 F 07/23/24 13:17 Pulse Rate 67 07/23/24 14:45 Respiratory Rate 14 07/23/24 13:17 Blood Pressure 125/80 07/23/24 14:45 Pulse Oximetry 99 07/23/24 14:45 Oxygen Delivery Me thod Room Air 07/23/24 14:45 MDM - Abdominal Pain Medical Decision Making Patient was given a 20 mg ketamine infusion for pain due to her intractable abdominal pain. Patient has significant improvement with pain going to 0. She is feeling good and would like to go home and spend the afternoon at home since she is pain-free. She should follow-up with her primary care provider as needed for long-term pain control due to her end-stage pancreatic cancer. No radiology studies performed this visit Discharge Plan Discharge Patient Disposition: Home Clinical Impression: Pancreatic cancer metastasized to liver, Intractable abdominal pain Condition: Stable Prescriptions: No Action Veozah 45 mg tablet 45 mg PO DAILY Mounjaro 7.5 mg/0.5 mL pen injector 7.5 mg SUBCUT Q7D Rx Instructions: On Wednesday hydrocodone-acetaminophen 10-325 mg tablet 1 tab PO 6XD PRN (Reason: Pain (Scale Score 1-3)) oxycodone [OxyContin] 10 mg tablet,oral only,ext.rel.12 hr 10 mg PO BID 30 Days Qty: 60 0RF paclitaxel protein-bound [Abraxane] 100 mg suspension for reconstitution 235 mg IV Q7D Qty: 9 11RF Rx Instructions: Administer on days 1, 8, 15 of a 21 day cycle gemcitabine 200 mg recon soln 1,880 mg IV Q7D Qty: 27 11RF Rx Instructions: Administer on days 1, 8, 15 fentanyl 25 mcg/hr patch 72 hour 1 patch transdermal Q72H 30 Days Qty: 10 0RF prochlorperazine maleate [Compazine] 10 mg tablet 10 mg PO Q4H PRN (Reason: mild nausea) Qty: 30 3RF (DME) glucometer testing kit See Rx Instructions .Route .MEDSUPPLY Qty: 1 0RF Rx Instructions: Glucometer testing kit, check blood sugar 3 times daily -Lancets #100, ? Strips #100 docusate sodium [Colace] 100 mg Capsule 200 mg PO DAILY polyethylene glycol 3350 [Miralax] 17 gram/dose Powder 414 g PO DAILY Eliquis 5 mg tablet 5 mg PO BID promethazine 25 mg tablet 25 mg PO Q6H PRN (Reason: nausea and vomiting) Qty: 20 0RF lorazepam [Ativan] 2 mg tablet 2 mg PO Q6H PRN (Reason: Sleep/anxiety) Qty: 20 0RF Discharge Orders: Discharge ED (Routine); Ordered 07/23/24 Ordered By: Abbe Mart Referrals: Pina,SCOOTER ChenN [Primary Care Provider] - Discharge Diet: Advance as tolerated Discharge Activity: Increase activity as tolerated Patient Instructions: Abdominal Pain (ED), Opioid Safety, Pain Management Activity Restrictions/Additional Instructions: Please follow-up with your primary care provider and call them tomorrow for other pain management options. Print Language: [place]alander Coding Level of Care Code ED Valve And Regulator Repairer for Patrice Heredia
--- NOTE | 2024-07-23 14:12 | PC.PHAR ---
Pt starts 2 Chemotherapy drugs on Wednesday of this week.
[2024-07-23] MEDS: ketamine 100 mg/mL Inj 5 mL 20 MG IV (14:32)
[2024-07-23 14:45] VITALS: BP 125/80; PULSE 67; O2SAT 99
== END 2024-07-23 15:47 | disposition home or self-care (01) ==
PROVIDERS: Emergency Provider Student in an Organized Health Care Education/Training Program; PCP Nurse Practitioner Family
DX: C25.7 Malignant neoplasm of other parts of pancreas (principal); C78.7 Secondary malignant neoplasm of liver and intrahepatic bile duct; R10.9 Unspecified abdominal pain; Z79.01 Long term (current) use of anticoagulants; Z87.891 Personal history of nicotine dependence
CPT/HCPCS: 96374; 99284; J3490

== ENCOUNTER 2024-08-04 13:00 | Oncology outpatient (recurring) (ONCR) | payer BC, SELFPAY ==
[2024-07-27 08:06] LABS: Basophils % 0.5 %; Eosinophils # 0.1 10^3/uL (0.0-0.8); Eosinophils % 0.9 %; Hematocrit 39.5 % (36-47); Lymphocytes # 0.6 10^3/uL (0.8-4.8); Lymphocytes % 7.4 %; Mean Corpuscular HGB Conc 33.7 g/dL (30-55); Mean Corpuscular Hemoglobin 29.4 pg (27-33); Mean Corpuscular Volume 87.4 fl (85-98); Mean Platelet Volume 10.4 fL (7.4-10.4); Monocytes # 0.6 10^3/uL (0.2-0.9); Monocytes % 7.4 %; Neutrophils # 7.05 10^3/uL (1.8-7.7); Neutrophils % 83.6 %; Nucleated Red Blood Cells % 0 %; Platelet Count 122 10^3/cmm (157-399); Red Blood Count 4.52 10^6/uL (3.85-5.65); Red Cell Distribution Width 12.4 % (12.1-15.1); White Blood Count 8.43 10^3/uL (3.29-11.43)
[2024-07-27 08:24] LABS: Alanine Aminotransferase 39 U/L (0-33); Albumin Level 4.3 g/dL (3.5-5.2); Alkaline Phosphatase 295 U/L (35-105); Aspartate Amino Transferase 33 U/L (0-32); Blood Urea Nitrogen 12 mg/dL (6-20); Calcium 9.5 mg/dL (8.5-10.5); Carbon Dioxide 26 mmol/L (22-29); Chloride 100 mmol/L (98-107); Creatinine Clr Calc Pharmacy 116.5122; Globulin 2.5 g/dL (1.3-4.6); Glomerular Filtration Rate 105.4 mL/min (90-130); Glucose 149 mg/dL (65-115); Lactate Dehydrogenase 142 U/L (135-214); Magnesium 1.8 mg/dL (1.7-2.3); Osmolality Calculated 289 mOsm/kg (285-295); Sodium 138 mmol/L (136-145); Total Bilirubin 0.9 mg/dL (0.15-1.2); Total Protein 6.8 g/dL (6.6-8.7)
[2024-07-27 08:44] LABS: Cancer Antigen 19 9 5090 U/mL (0-35)
[2024-07-27 09:44] VITALS: RESP 16
[2024-07-27] MEDS: sodium chloride 0.9% 250 ML 75 ML IV (09:44)
[2024-07-27] MEDS: morphine 4 mg/mL SDV 1 mL 2 MG IVP ×3 (09:44→12:08)
[2024-07-27] MEDS: famotidine 20 mg/2 mL INJ IVP (10:11)
[2024-07-27] MEDS: aprepitant 130 mg/18 ml SDV IVP (10:15)
[2024-07-27] MEDS: palonosetron 0.25 mg/5 mL SDV IVP (10:19)
[2024-07-27] MEDS: dexamethasone 4 mg/mL INJ 5 mL 12 MG IVP (10:22)
[2024-07-27 11:00] VITALS: BP 104/71; PULSE 74; RESP 17; O2SAT 95
[2024-07-27] MEDS: PACLITAXEL PROTEIN BOUND IV (11:02)
[2024-07-27] MEDS: FLEXIBLE CONTAINER IV (11:02)
[2024-07-27 11:35] VITALS: RESP 17; O2SAT 95
[2024-07-27 12:08] VITALS: RESP 18; O2SAT 97
[2024-07-27] MEDS: gemcitabine 1,900 MG in sodium chloride 0.9% (100 ml) 100 ML 299.94 MG IV (12:10)
[2024-07-27 13:14] VITALS: BP 109/66; PULSE 78; RESP 18; TEMP 36.6; O2SAT 99
[2024-08-03 07:54] LABS: Basophils % 0.5 %; Eosinophils # 0.1 10^3/uL (0.0-0.8); Eosinophils % 2.6 %; Hematocrit 34.5 % (36-47); Lymphocytes # 0.7 10^3/uL (0.8-4.8); Lymphocytes % 17.1 %; Mean Corpuscular Hemoglobin 28.8 pg (27-33); Mean Corpuscular Volume 87.1 fl (85-98); Mean Platelet Volume 9.4 fL (7.4-10.4); Monocytes # 0.3 10^3/uL (0.2-0.9); Monocytes % 7.7 %; Neutrophils # 2.97 10^3/uL (1.8-7.7); Neutrophils % 71.4 %; Nucleated Red Blood Cells % 0 %; Platelet Count 60 10^3/cmm (157-399); Red Blood Count 3.96 10^6/uL (3.85-5.65); White Blood Count 4.16 10^3/uL (3.29-11.43)
[2024-08-03 08:13] LABS: Alanine Aminotransferase 66 U/L (0-33); Albumin Level 3.9 g/dL (3.5-5.2); Alkaline Phosphatase 350 U/L (35-105); Aspartate Amino Transferase 30 U/L (0-32); Blood Urea Nitrogen 13 mg/dL (6-20); Calcium 8.8 mg/dL (8.5-10.5); Carbon Dioxide 24 mmol/L (22-29); Chloride 98 mmol/L (98-107); Globulin 2.7 g/dL (1.3-4.6); Glomerular Filtration Rate 130.1 mL/min (90-130); Glucose 159 mg/dL (65-115); Osmolality Calculated 281 mOsm/kg (285-295); Sodium 134 mmol/L (136-145); Total Bilirubin 0.7 mg/dL (0.15-1.2); Total Protein 6.6 g/dL (6.6-8.7)
[2024-08-03 09:03] VITALS: RESP 18
[2024-08-03] MEDS: morphine 4 mg/mL SDV 1 mL IVP ×2 (09:03→11:20)
--- NOTE | 2024-08-03 09:18 | XR_ITS ---
WS: [id number] Acute abdomen series, 08/03/2024 Clinical Data: severe Left quadrant abd pain with no recent bowel mvt Comparison: KUB, 05/29/2024 Findings: In the chest there are no nodules, masses or effusions. The heart is normal. The pulmonary vascularity is not increased. There is a right internal jugular venous catheter which ends in the superior vena cava. No free air is seen beneath the diaphragms. No abnormal intra-abdominal masses or calcifications are seen. There are clips in the right upper quadrant from a cholecystectomy. There is fecal material in the ascending colon. There is air in the stomach, small bowel and colon. No obstruction is present. XR/XR acute abdomen series [id number] Impression: 1. Negative chest. 2. Moderate fecal material in a sending colon. 3. Moderate generalized ileus.
[2024-08-03 11:20] VITALS: RESP 18
--- NOTE | 2024-08-04 13:00 | PETR_ITS ---
PROCEDURE INFORMATION: Exam: PET/CT Skull Base to Mid-thigh Exam date and time: 08/04/2024 1:34 PM Age: 53 years old Clinical indication: Condition or disease; Primary cancer: Pancreatic cancer; Follow-up oncological assessment; Prior surgery; Surgery date: 6+ months; Surgery type: ; Hysterectomy; Ventral hernia repair; Gallbladder LABS AND CLINICAL REPORTS: Glucose: 129 mg/dl Treatment strategy for malignancy (PET staging): Restaging (PS) TECHNIQUE: Imaging protocol: Following at least four-hour fasting and following the injection of radiopharmaceutical, low dose CT images were obtained. Then, PET images were obtained. Attenuation corrected images were constructed using the CT scan. Fused images of PET and CT were reviewed. The standardized uptake values (SUV) reported below are maximum values within a region of interest, expressed in gm/ml. Exam includes orbital meatal line to mid-thigh. SUV normalization method: BodyWeight Radiopharmaceutical: 10.61 mCi F-18 FDG (Fluorodeoxyglucose), IV. Time of imaging post radiopharmaceutical administration: 43 minutes Injection site: right ac COMPARISON: CT abdomen pelvis w con* [id number] 06/03/2024 11:59 AM FINDINGS: Brain: Visualized brain has normal physiologic uptake. Pharynx: No abnormal uptake. Larynx: No abnormal uptake. Lungs, pleura and trachea: No abnormal uptake. Heart: Normal physiologic uptake. Mediastinal space: No abnormal uptake. Liver: Multiple (more than 10) hepatic metastases involving both hepatic lobes and measuring up to approximately 7.9 cm in the left hepatic lobe, segment IVB, and 7.9 cm in the right hepatic lobe, segment VII/VIII. Hepatic metastases demonstrate maximum SUV of up to 6.4, which was obtained from the largest lesion in the left hepatic lobe. The largest lesions demonstrate areas of central necrosis. Gallbladder and biliary ducts: No abnormal uptake. Status post cholecystectomy. Pancreas: Ill-defined, heterogeneous and centrally necrotic mass within the pancreatic head and uncinate process, maximum SUV 6.9. Spleen: No abnormal uptake. Adrenal glands: No abnormal uptake. Kidneys and ureters: Normal physiologic uptake. Stomach and bowel: No abnormal uptake. Vasculature: No abnormal uptake. Lymph nodes: No abnormal uptake. No lymphadenopathy in the head, neck, chest, abdomen, pelvis, and extremities. Skeleton: Nonspecific foci of increased radiotracer uptake within the thoracic and lumbar spine, most notable at T7, T11, T12, maximum SUV 3.4 obtained from T11. No discrete underlying correlating sclerotic or lytic lesion on CT. Soft tissues: No abnormal uptake in the visualized head, neck, chest, abdomen, pelvis, and extremities. PET/PET skull to thigh INIT [id number] IMPRESSION: 1. Ill-defined, centrally necrotic FDG avid mass within the pancreatic head and uncinate process, consistent with known pancreatic carcinoma. 2. Multiple FDG avid hepatic metastases involving the right and left hepatic lobes. The larger lesions exhibit central necrosis. 3. Nonspecific foci of increased radiotracer uptake within the thoracic and lumbar spine without discrete underlying correlating lesion on CT. These findings are indeterminate and may represent early osseous metastases. Consider contrast-enhanced MRI of the spine further assessment.
== END 2024-08-04 23:59 | disposition home or self-care (01) ==
PROVIDERS: Internal Medicine; PCP Nurse Practitioner Family; Visit Provider Nurse Practitioner
DX: Z53.9 Procedure and treatment not carried out, unspecified reason (principal); C25.9 Malignant neoplasm of pancreas, unspecified; C78.7 Secondary malignant neoplasm of liver and intrahepatic bile duct
CPT/HCPCS: 74022; 78815; 80053; 83615; 83735; 85025; 86301; 96374; 96375; 96376; 96413; 96417; A9552; J0185; J1100; J2270; J2469; J3490; J7050; J9201; J9264

== ENCOUNTER 2024-08-06 10:53 | Inpatient (IN) | payer BC, SELFPAY ==
[2024-08-06] VITALS (13 sets, daily range): BP systolic 115–137; BP diastolic 70–90; PULSE 70–107; RESP 14–18; TEMP 36.7–36.8; O2SAT 92–97; BMI 25.0; BMI 25.4
--- NOTE | 2024-08-06 11:09 | W.ED.ABDPA2 ---
HPI - Abdominal Pain General: Chief Complaint: Abdominal Pain Stated Complaint: abd pain, pt states she has pancreatic cancer Time Seen by Provider: 08/06/24 10:56 Source: patient Mode of arrival: ambulatory Limitations: no limitations History of Present Illness: 53-year-old female history of pancreatic cancer she states that she has been constipated over the last week states she is now having some abdominal distention and pain she has chronic abdominal pain from her cancer but states she is having severe pain due to being so constipated. Associated Symptoms: Reports constipation and nausea; Denies chills, diarrhea, dysuria and fever(s) Related Data Home Medications ?Medication ?Instructions ?Recorded ?Confirmed fezolinetant 45 mg tablet (Veozah) 45 mg PO DAILY 09/10/23 08/06/24 apixaban 5 mg tablet (Eliquis) 5 mg PO BID 06/03/24 08/06/24 Held on 07/05/24. Instructions: Resume on 07/06/24. hydrocodone 10 mg-acetaminophen 1 tab PO 6XD PRN Pain (Scale Score 06/15/24 08/06/24 325 mg tablet 1-3) tirzepatide 7.5 mg/0.5 mL 7.5 mg SUBCUT Q7D 06/15/24 08/06/24 subcutaneous pen injector (Mounjaro) polyethylene glycol 3350 17 414 g PO DAILY 07/23/24 08/06/24 gram/dose oral powder (Miralax) Previous Rx's ?Medication ?Instructions ?Recorded glucometer testing kit #1 ea 06/17/23 lorazepam 2 mg tablet (Ativan) 2 mg PO Q6H PRN Sleep/anxiety #20 06/03/24 tabs promethazine 25 mg tablet 25 mg PO Q6H PRN nausea and 06/03/24 vomiting #20 tabs gemcitabine 200 mg intravenous 1,880 mg IV Q7D #27 ea 07/12/24 solution paclitaxel protein-bound 100 mg 235 mg IV Q7D #9 ea 07/12/24 intravenous suspension (Abraxane) prochlorperazine maleate 10 mg 10 mg PO Q4H PRN mild nausea #30 07/21/24 tablet (Compazine) tabs fentanyl 50 mcg/hr transdermal 1 patch transdermal Q72H 30 days 07/27/24 patch #10 ea lactulose 20 gram/30 mL oral 20 g (30 mL) PO Q6H #1,200 mL 08/03/24 solution Allergies Allergy/AdvReac Type Severity Reaction Status Date / Time Penicillins Allergy Mild Unknown Verified 08/03/24 07:52 Review of Systems Const: Denies: fever(s), chills, body aches or change in appetite ENMT: Denies: throat pain or dental pain Card: Denies: chest pain Resp: Denies: dyspnea GI: Reports: abdominal pain, nausea and constipation; Denies: diarrhea : Denies: dysuria Musc: Denies: neck pain or back pain Skin/Breast: Denies: rash Neuro: Denies: headache(s) PFSH ED PFSH: Medical History 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 Bilateral pulmonary embolism Left leg DVT Surgical History S/P cholecystectomy History of hysterectomy History of section History of ventral hernia repair Social History Smoking and tobacco/nicotine status: never used tobacco/nicotine Quit status (tobacco/nicotine): has quit using Year quit tobacco: 2016 Former quit date comment: 1 ppd X 20 years Physical Exam Const: COMMON NORMALS: no acute distress, patient oriented x3 and healthy appearing HENMT: COMMON NORMALS: normocephalic and atraumatic HEAD & SCALP: normocephalic and atraumatic Eye: COMMON NORMALS: conjunctivae normal CONJUNCTIVA: Yes conjunctivae normal Neck/C-Spine: COMMON NORMALS: full ROM and supple Chest: COMMONS NORMALS: normal inspection of the chest Resp: COMMON NORMALS: normal respiratory effort, No retractions, No use of accessory muscles and clear to auscultation bilaterally AUSCULTATION: clear to auscultation bilaterally Cardio: COMMON NORMALS: regular rate, regular rhythm and No murmurs present (Cardio) RATE: regular rate RHYTHM: regular rhythm GI: COMMON NORMALS: Normal to inspection, nondistended, normoactive bowel sounds present, Soft to palpation, non-tender and no masses PALPATION: Yes Soft to palpation Extremity: COMMON NORMALS: normal to inspection and full ROM Neuro: COMMON NORMALS: patient oriented x3, moves all extremities and no focal motor deficits Psych: COMMON NORMALS: mental status grossly normal, Normal thought process present and cooperative THOUGHT PROCESS: Normal thought process present Skin: COMMON NORMALS: no rashes or lesions noted and no wounds GENERAL SKIN EXAM: no rashes or lesions noted Course Vital Signs: Vital signs: Vital Signs Temperature 98.2 F 08/06/24 11:00 Pulse Rate 89 08/06/24 13:00 Respiratory Rate 16 08/06/24 13:00 Blood Pressure 118/77 08/06/24 13:00 Pulse Oximetry 93 08/06/24 13:00 Oxygen Delivery Me thod Room Air, [place] 08/06/24 13:00 MDM - Abdominal Pain Medical Decision Making pt presents here with a bowel obstruction. I spoke to surgeon and hospitalists and will admit. Placed an NG tube. Medical Records I reviewed the patient's medical records. Lab Data I reviewed the patient's lab results. 08/06/24 11:35 08/06/24 11:35 Labs/Radiology: Radiology Impressions KUB X-Ray 08/06/24 11:12 IMPRESSION: Dilated loop of bowel in the right lower quadrant with gaseous distension of the colon, possibly ileus. Developing obstruction not entirely excluded. Abdomen/Pelvis CT 08/06/24 11:58 IMPRESSION: 1. New dilation of large and small bowel loops without discrete transition point, most likely ileus. Developing obstruction or changes of bowel ischemia not entirely excluded. 2. Pancreatic mass at the head and neck of the pancreas up to 4.9 cm slightly increased. 3. Numerous metastatic liver lesions again noted and slightly increased. 4. 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 There is developing cavernous transformation at the arnold hepatis. There is bland or tumor thrombus within a portal vein within the arnold hepatis. This is increased. 5. 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 There is a small nonocclusive thrombus within the splenic vein near the mass. This is increased. Laboratory Results WBC 8.68 10^3/uL (3.29-11.43) 08/06/24 11:35 RBC 4.26 10^6/uL (3.85-5.65) 08/06/24 11:35 Hgb 12.20 g/dL (11.27-16.99) 08/06/24 11:35 Hct 37.6 % (36-47) 08/06/24 11:35 MCV 88.3 fl (85-98) 08/06/24 11:35 MCH 28.6 pg (27-33) 08/06/24 11:35 MCHC 32.4 g/dL (30-55) 08/06/24 11:35 RDW 12.7 % (12.1-15.1) 08/06/24 11:35 Plt Count 95 10^3/cmm (157-399) L 08/06/24 11:35 MPV 10.2 fL (7.4-10.4) 08/06/24 11:35 Neut % (Auto) 76.2 % 08/06/24 11:35 Lymph % (Auto) 10.4 % 08/06/24 11:35 [place] % (Auto) 11.6 % 08/06/24 11:35 Eos % (Auto) 1.0 % 08/06/24 11:35 Baso % (Auto) 0.3 % 08/06/24 11:35 Neut # (Auto) 6.61 10^3/uL (1.8-7.7) 08/06/24 11:35 Lymph # (Auto) 0.9 10^3/uL (0.8-4.8) 08/06/24 11:35 [place] # (Auto) 1.0 10^3/uL (0.2-0.9) H 08/06/24 11:35 Eos # (Auto) 0.1 10^3/uL (0.0-0.8) 08/06/24 11:35 Baso # (Auto) 0.0 10^3/uL (0.0-0.1) 08/06/24 11:35 Nucleated RBC % (auto) 0 % 08/06/24 11:35 Nucleated RBCs # 0.0 /100WBC 08/06/24 11:35 Sodium 138 mmol/L (136-145) 08/06/24 11:35 Potassium 3.6 mmol/L (3.5-5.1) 08/06/24 11:35 Chloride 100 mmol/L (98-107) 08/06/24 11:35 Carbon Dioxide 24 mmol/L (22-29) 08/06/24 11:35 Anion Gap 17.6 (5-19) 08/06/24 11:35 BUN 11 mg/dL (6-20) 08/06/24 11:35 Creatinine 0.4 mg/dL (0.5-0.9) L 08/06/24 11:35 GFR Calculation 168.3 mL/min (90-130) H 08/06/24 11:35 Glucose 176 mg/dL (65-115) H 08/06/24 11:35 Calculated Osmolality 290 mOsm/kg (285-295) 08/06/24 11:35 Lactic Acid 0.9 mmol/L (0.5-2.2) 08/06/24 11:35 Calcium 9.1 mg/dL (8.5-10.5) 08/06/24 11:35 Total Bilirubin 0.6 mg/dL (0.15-1.2) 08/06/24 11:35 AST 44 U/L (0-32) H 08/06/24 11:35 ALT 69 U/L (0-33) H 08/06/24 11:35 Alkaline Phosphatase 421 U/L (35-105) H 08/06/24 11:35 Total Protein 6.9 g/dL (6.6-8.7) 08/06/24 11:35 Albumin 4.2 g/dL (3.5-5.2) 08/06/24 11:35 Globulin 2.7 g/dL (1.3-4.6) 08/06/24 11:35 Lipase 8 U/L (13-60) L 08/06/24 11:35 Urine Color Yellow (Yellow) 08/06/24 12:51 Urine Appearance Clear (CLEAR) 08/06/24 12:51 Urine pH 5.5 (5-7) 08/06/24 12:51 Ur Specific [place] 1.084 (1.005-1.030) H 08/06/24 12:51 Urine Protein Trace (Negative) A 08/06/24 12:51 Urine Glucose (UA) Negative (Normal) 08/06/24 12:51 Urine Ketones 1+ (Negative) H 08/06/24 12:51 Urine Blood Negative (Negative) 08/06/24 12:51 Urine Nitrate Negative (Negative) 08/06/24 12:51 Urine Bilirubin Negative (Negative) 08/06/24 12:51 Urine Urobilinogen 1.0 mg/dL (Negative) 08/06/24 12:51 Ur Leukocyte Esterase Negative (Negative) 08/06/24 12:51 Urine RBC 0-4 /hpf (0-2) H 08/06/24 12:51 Urine WBC 0-4 /hpf (0-5) H 08/06/24 12:51 Ur Squamous Epith Cells 0-4 /hpf (0-5) H 08/06/24 12:51 Amorphous Sediment Not Reportable 08/06/24 12:51 Urine Bacteria Trace /hpf (NONE) 08/06/24 12:51 All radiology interpretation(s) finalized by discharge Discharge Plan Discharge Patient Disposition: Admitted As Inpatient Clinical Impression: Bowel obstruction Condition: Stable Coding Level of Care Code ED Fan Mail Clerk for Patrice Heredia
--- NOTE | 2024-08-06 11:12 | XRR_ITS ---
PROCEDURE INFORMATION: Exam: XR Abdomen Exam date and time: 08/06/2024 11:35 AM Age: 53 years old Clinical indication: Bloating and constipation; Prior surgery; Surgery date: 6+ months; Surgery type: Hernia, gb, tummy tuck; Constipation; Abdominal pain/distention TECHNIQUE: Imaging protocol: Radiologic exam of the abdomen. Views: Frontal supine view of the abdomen. 1 View. COMPARISON: CR XR acute abdomen series [id number] 08/03/2024 9:39 AM FINDINGS: Gastrointestinal tract: Moderate gaseous distension of the colon. Dilated air-filled loop of bowel in the right lower quadrant. Intraperitoneal space: No free air. Bones/joints: Unremarkable. XR/XR KUB [id number] IMPRESSION: Dilated loop of bowel in the right lower quadrant with gaseous distension of the colon, possibly ileus. Developing obstruction not entirely excluded.
[2024-08-06] MEDS: ondansetron 2 mg/ML SDV 2 mL 4 MG IVP (11:28)
[2024-08-06] MEDS: HYDROMORPHONE HCL 0.5 MG/0.5 ML INJ 1 MG IVP ×3 (11:30→17:39)
[2024-08-06] MEDS: lactulose oral liq 20 gm/30 mL UDC 30 GM PO (11:34)
[2024-08-06] MEDS: Fleet Enema 133 mL Enema PR (11:36)
[2024-08-06 11:43] LABS: Basophils % 0.3 %; Eosinophils # 0.1 10^3/uL (0.0-0.8); Hematocrit 37.6 % (36-47); Lymphocytes # 0.9 10^3/uL (0.8-4.8); Lymphocytes % 10.4 %; Mean Corpuscular HGB Conc 32.4 g/dL (30-55); Mean Corpuscular Hemoglobin 28.6 pg (27-33); Mean Corpuscular Volume 88.3 fl (85-98); Mean Platelet Volume 10.2 fL (7.4-10.4); Monocytes % 11.6 %; Neutrophils # 6.61 10^3/uL (1.8-7.7); Neutrophils % 76.2 %; Nucleated Red Blood Cells % 0 %; Platelet Count 95 10^3/cmm (157-399); Red Blood Count 4.26 10^6/uL (3.85-5.65); Red Cell Distribution Width 12.7 % (12.1-15.1); White Blood Count 8.68 10^3/uL (3.29-11.43)
--- NOTE | 2024-08-06 11:58 | CTR_ITS ---
PROCEDURE INFORMATION: Exam: CT Abdomen And Pelvis With Contrast Exam date and time: 08/06/2024 12:26 PM Age: 53 years old Clinical indication: Abdominal pain; Generalized; Prior surgery; Surgery date: 6+ months; Surgery type: Hernia, choley; Pancreatic cancer; Additional info: Abd pain TECHNIQUE: Imaging protocol: Computed tomography of the abdomen and pelvis with contrast. Radiation optimization: All CT scans at this facility use at least one of these dose optimization techniques: automated exposure control; mA and/or kV adjustment per patient size (includes targeted exams where dose is matched to clinical indication); or iterative reconstruction. Contrast material: OMNIPAQUE 350; Contrast volume: 100 ml; Contrast route: INTRAVENOUS (IV); COMPARISON: PT PET skull to thigh INIT [id number] 08/04/2024 1:34 PM RADIATION DOSE METRICS: Total DLP (mGy-cm): 723.59 FINDINGS: Lungs: Bibasilar atelectasis noted. Liver: Numerous metastatic liver lesions again noted largest in segment 4 left hepatic lobe. Lesions are slightly increased. Gallbladder and biliary ducts: Normal. No calcified stones. No ductal dilation. Pancreas: Pancreatic mass at the head and neck of the pancreas up to 4.9 cm slightly increased. Spleen: Normal. No splenomegaly. Adrenal glands: Normal. No mass. Kidneys and ureters: Normal. No hydronephrosis. Stomach and bowel: [id number] dilation of the colon with air-fluid level with more prominent dilation of the cecum. There are mildly dilated mid and distal small bowel loops. No discrete transition point. Appendix: No evidence of appendicitis. Intraperitoneal space: Unremarkable. No free air. No significant fluid collection. 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 There is developing cavernous transformation at the arnold hepatis. There is bland or tumor thrombus within a portal vein within the arnold hepatis. This is increased. Occlusion of the splenic vein near the pancreatic mass there is a small nonocclusive thrombus within the splenic vein near the mass. This is increased. Lymph nodes: Enlarged lymph node inferior to the mass, unchanged. Mildly enlarged lymph node near the gastroesophageal junction. Urinary bladder: Unremarkable as visualized. Reproductive: Unremarkable as visualized. Bones/joints: Unremarkable. No acute fracture. Soft tissues: Anterior abdominal wall surgical changes noted. CT/CT abdomen pelvis w con* [id number] IMPRESSION: 1. New dilation of large and small bowel loops without discrete transition point, most likely ileus. Developing obstruction or changes of bowel ischemia not entirely excluded. 2. Pancreatic mass at the head and neck of the pancreas up to 4.9 cm slightly increased. 3. Numerous metastatic liver lesions again noted and slightly increased. 4. 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 There is developing cavernous transformation at the arnold hepatis. There is bland or tumor thrombus within a portal vein within the arnold hepatis. This is increased. 5. 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 There is a small nonocclusive thrombus within the splenic vein near the mass. This is increased.
[2024-08-06 12:02] LABS: Alanine Aminotransferase 69 U/L (0-33); Albumin Level 4.2 g/dL (3.5-5.2); Alkaline Phosphatase 421 U/L (35-105); Anion Gap 17.6 (5-19); Aspartate Amino Transferase 44 U/L (0-32); Blood Urea Nitrogen 11 mg/dL (6-20); Calcium 9.1 mg/dL (8.5-10.5); Carbon Dioxide 24 mmol/L (22-29); Chloride 100 mmol/L (98-107); Creatinine Clr Calc Pharmacy 173.3383; Globulin 2.7 g/dL (1.3-4.6); Glomerular Filtration Rate 168.3 mL/min (90-130); Glucose 176 mg/dL (65-115); Lipase 8 U/L (13-60); Osmolality Calculated 290 mOsm/kg (285-295); Potassium 3.6 mmol/L (3.5-5.1); Sodium 138 mmol/L (136-145); Total Bilirubin 0.6 mg/dL (0.15-1.2); Total Protein 6.9 g/dL (6.6-8.7)
[2024-08-06] MEDS: iohexol 350 mg/mL 500 mL Btl (per mL) IV (12:29)
[2024-08-06 13:12] LABS: Lactic Sepsis W/Reflex 0.9 mmol/L (0.5-2.2)
[2024-08-06 13:12] LABS: Bilirubin Urine Negative (Negative); Blood Urine Negative (Negative); Glucose Urine UA Negative (Normal); Ketones Urine 1+ (Negative); Leukocyte Esterase Urine Negative (Negative); Nitrate Urine Negative (Negative); Protein Urine Trace (Negative); Urine Appearance Clear (CLEAR); Urine Color Yellow (Yellow); pH Urine 5.5 (5-7)
[2024-08-06 13:19] LABS: Add Urine Microscopic? YES; Bacteria Urine TRACE /hpf; RBC Urine 0-4 /hpf (0-2); Specific Gravity, Urine 1.084 (1.005-1.030); Squamous Epithelial Cell Urine 0-4 /hpf (0-5); WBC Urine 0-4 /hpf (0-5)
[2024-08-06] MEDS: LORazepam 2 mg/mL INJ 1 mL 1 MG IVP (13:33)
--- NOTE | 2024-08-06 14:24 | XRR_ITS ---
PROCEDURE INFORMATION: Exam: XR Chest Exam date and time: 08/06/2024 1:57 PM Age: 53 years old Clinical indication: Device placement; Ng tube placement TECHNIQUE: Imaging protocol: Radiologic exam of the chest. Views: 1 view. COMPARISON: CT angio chest PE protcl [id number] 06/15/2023 9:00 PM FINDINGS: NG tube terminates in the stomach. XR/XR chest 1V portable [id number] IMPRESSION: NG tube terminates in the stomach.
--- NOTE | 2024-08-06 15:24 | PM.HP ---
Providers/Chief Complaint Primary Care Provider: April Pina APN Chief Complaint: abd pain, pt states she has pancreatic cancer History of Present Illness Roche (Marian) John Paul Dukes is a 53 year old female with history of DVT and pulmonary embolism, history of metastatic pancreatic cancer with liver mets, currently on chemotherapy, recent history of port placement, on narcotics for cancer pain, who presents to [facility] due to abdominal pain, decreased bowel movements, feeling nauseous. Currently patient is alert oriented x 3, following all commands, she is tired, she did not get much sleep last night, she tells me that her last good bowel movement about 3 days ago she has had some bowel movements but they have been liquidy and small, she tells me that she is not passing gas much gas from below, does have poor appetite, no fevers, no chills, no lightheaded, dizziness no hemoptysis, no hematochezia. She is on a bowel regimen however continues to have lack of good bowel movements continues to have abdominal distention. Patient does report that she has been taking Eliquis in about 2 months, initially was held for her liver biopsy, but it never got completed as she had nausea and anxiety prior to the biopsy, in addition was held for her port placement she has not resumed it as of yet Review of Systems Const: Denies: fever(s) Card: Denies: chest pain Resp: Denies: dyspnea GI: Reports: abdominal pain Medications/Allergies Home Medications ?Medication ?Instructions ?Recorded ?Confirmed ?Last Taken ?Type glucometer testing kit #1 ea 06/17/23 08/06/24 Unknown Rx fezolinetant 45 mg tablet (Veozah) 45 mg PO DAILY 09/10/23 08/06/24 07/23/24 History apixaban 5 mg tablet (Eliquis) 5 mg PO BID 06/03/24 08/06/24 06/20/24 History Held on 07/05/24. Instructions: Resume on 07/06/24. lorazepam 2 mg tablet (Ativan) 2 mg PO Q6H PRN Sleep/anxiety #20 06/03/24 08/06/24 07/01/24 Rx tabs promethazine 25 mg tablet 25 mg PO Q6H PRN nausea and 06/03/24 08/06/24 07/04/24 Rx vomiting #20 tabs hydrocodone 10 mg-acetaminophen 1 tab PO 6XD PRN Pain (Scale Score 06/15/24 08/06/24 07/05/24 History 325 mg tablet 1-3) tirzepatide 7.5 mg/0.5 mL 7.5 mg SUBCUT Q7D 06/15/24 08/06/24 07/23/24 History subcutaneous pen injector (Mounjaro) gemcitabine 200 mg intravenous 1,880 mg IV Q7D #27 ea 07/12/24 08/06/24 Unknown Rx solution paclitaxel protein-bound 100 mg 235 mg IV Q7D #9 ea 07/12/24 08/06/24 Unknown Rx intravenous suspension (Abraxane) prochlorperazine maleate 10 mg 10 mg PO Q4H PRN mild nausea #30 07/21/24 08/06/24 Unknown Rx tablet (Compazine) tabs polyethylene glycol 3350 17 414 g PO DAILY 07/23/24 08/06/24 07/23/24 History gram/dose oral powder (Miralax) fentanyl 50 mcg/hr transdermal 1 patch transdermal Q72H 30 days 07/27/24 08/06/24 Unknown Rx patch #10 ea lactulose 20 gram/30 mL oral 20 g (30 mL) PO Q6H #1,200 mL 08/03/24 08/06/24 Unknown Rx solution Allergies Allergy/AdvReac Type Severity Reaction Status Date / Time Penicillins Allergy Mild Unknown Verified 08/03/24 07:52 PFSH Acute PFSH: Medical History 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 Bilateral pulmonary embolism Left leg DVT Surgical History S/P cholecystectomy History of hysterectomy History of section History of ventral hernia repair Social History Smoking and tobacco/nicotine status: never used tobacco/nicotine Quit status (tobacco/nicotine): has quit using Year quit tobacco: 2015 Former quit date comment: 1 ppd X 20 years Vitals/I&O/Wt Last Vital Signs Temp 98.2 F 08/06/24 11:00 Pulse 70 08/06/24 14:00 Resp 16 08/06/24 14:00 BP 134/78 08/06/24 14:00 Pulse Ox 94 08/06/24 14:00 O2 Del Method Room Air 08/06/24 14:00 Weight last 48 hrs Weight 72.575 kg Physical Exam Const: COMMON NORMALS: no acute distress and patient oriented x3 HENMT: COMMON NORMALS: normocephalic HEAD & SCALP: normocephalic Eye: COMMON NORMALS: Equal, round and reactive pupils present and EOMs intact bilaterally Neck/C-Spine: COMMON NORMALS: no JVD Resp: COMMON NORMALS: normal respiratory effort, No retractions, No use of accessory muscles and clear to auscultation bilaterally AUSCULTATION: clear to auscultation bilaterally Cardio: COMMON NORMALS: regular rate, regular rhythm, S1 normal heart sound present and S2 normal heart sound present RATE: regular rate RHYTHM: regular rhythm HEART SOUNDS: S1 normal heart sound present and S2 normal heart sound present OTHER: Abdomen soft, distended, no guarding, no rebound, rigidity does have bowel sounds,, does have diffuse tenderness Extremity: COMMON NORMALS: no pedal edema Neuro: COMMON NORMALS: patient oriented x3 Psych: COMMON NORMALS: mental status grossly normal Data 08/06/24 11:35 08/06/24 11:35 A&P Assessment and plan (1) Abdominal pain: (2) Bilateral pulmonary embolism: (3) Left leg DVT: Qualifiers: Affected thrombotic vein of extremity: unspecified lower extremity distal vein Chronicity: acute Qualified Code(s): I82.4Z2 - Acute embolism and thrombosis of unspecified deep veins of left distal lower extremity (4) Type 2 diabetes mellitus: (5) Pancreatic cancer metastasized to liver: Plan Abdominal pain CT/CT abdomen pelvis w con* 11085 IMPRESSION: 1. New dilation of large and small bowel loops without discrete transition point, most likely ileus. Developing obstruction or changes of bowel ischemia not entirely excluded. 2. Pancreatic mass at the head and neck of the pancreas up to 4.9 cm slightly increased. 3. Numerous metastatic liver lesions again noted and slightly increased. 4. 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 There is developing cavernous transformation at the arnold hepatis. There is bland or tumor thrombus within a portal vein within the arnold hepatis. This is increased. 5. 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 There is a small nonocclusive thrombus within the splenic vein near the mass. This is increased. -With history of constipation Plan -General Surgery has been consulted -NG tube to be placed -N.p.o. -Bowel regimen History of pancreatic cancer, with metastasis to liver, on chemotherapy Portal vein thrombus, continue therapeutic Lovenox Cancer pain, continue fentanyl, hydrocodone History of pulm embolism, DVT, Eliquis, currently on hold, switch to therapeutic Lovenox Full code Lovenox PDMP PDMP Reviewed: Not Reviewed Attestations Medical Necessity Statement*: Patient requires hospitalization for abdominal pain, inpatient, greater than 2 midnights Diagnoses Abdominal pain R10.9 Bilateral pulmonary embolism I26.99 Acute deep vein thrombosis (DVT) of distal vein of left lower extremity I82.4Z2 Affected thrombotic vein of extremity: unspecified lower extremity distal vein Chronicity: acute Type 2 diabetes mellitus E11.9 Pancreatic cancer metastasized to liver C25.9; C78.7
[2024-08-06 15:32] LABS: INR 1.03 (0.8-1.2)
[2024-08-06 15:48] LABS: Procalcitonin 0.25 ng/mL (0-0.5)
--- OUTSIDE RECORDS SUMMARY | 2024-08-06 16:57 | XMS_ITS | Clinical Summary ---
Author Organization [facility] Address [address] [place] [place] [address] Care Team Providers Care Asparagus Buncher Name Role Phone Unavailable Primary Care Provider Unavailabl e Allergies Active Allergy Reactions Criticality Noted Date Comments Penicillins Rash,Fever Low 10/01/2011 Medications DEXTROMETHORPHAN HBR (THERAFLU COUGH ORAL)Indications:W ell woman exam with routine gynecological exam Take by mouth. Active conjugated estrogens (PREMARIN) 1.25 mg Oral tabletIndications: Well woman exam with routine gynecological exam Take 1 Tab by mouth daily. 30 Tab 12 10/01/2011 Active citalopram (CELEXA) 20 mg Oral tabletIndications: Well woman exam with routine gynecological exam Take 1 Tab by mouth daily at bedtime. 30 Tab 12 10/01/2011 Active Active Problems No known active problems Family History Medical History Relation Name Comments Diabetes Other Uncle Relation Name Status Comments Other Social History Tobacco Use Types Packs/Day Years Used Date Smoking Tobacco: Former Cigarettes Q uit: 08/02/2011 Smokeless Tobacco: Never Alcohol Use Standard Drinks/Week Comments No 0 (1 standard drink = 0.6 oz pur e alcohol) Comments No Sex and Gender Information Value Date Recorded Sex Assigned at Not on file Legal Sex Female 4:34 AM [employer] Gender Identity Not on file Sexual Orientation Not on file Last Filed Vital Signs Vital Sign Reading Time Taken Comments Blood Pressure 122/74 10/01/2011 9:36 AM CDT Pulse - - Temperature - - Respiratory Rate - - Oxygen Saturation - - Inhaled Oxygen Concentration - - Weight 92.5 kg (204 lb) 10/01/2011 9:36 AM CDT Height 170.2 cm (5' 7 ) 10/01/2011 9:36 AM CDT Body Mass Index 31.95 10/01/2011 9:36 AM CDT Plan of Treatment Health Maintenance Due Date Last Done Comments DTAP/TDAP/TD VACCINES (1 - Tdap) 12/28/1991 HEPATITIS B VACCINES (1 of 3 - 19+ 3-dose series) 12/28/1991 BREAST CANCER SCREENING 2012 CERVICAL CANCER SCREENING 09/30/2014 10/01/2011 COLORECTAL SCREENING 2017 Colorectal Cancer Screening 2017 FIT-DNA Q 3 years 2017 FIT/FOBT Q 1 year 2017 Flex Sig/CT Colonography Q 5 years 2017 ZOSTER VACCINE (1 of 2) 2022 INFLUENZA VACCINE (#1) 2024 PNEUMOCOCCAL VACCINE 0-49 YEARS Aged Out No longer eligible based on patient's age to complete this topic Procedures Procedure Name Priority Date/Time Associated Diagnosis Comments CERV/VAG CYTOPATH, THIN PREP IMAGR RFLX HPV Routine 10/01/2011 4:11 PM CDT from Last 3 Months or Most Recently Relevant to Health Maintenance Results * CERV/VAG CYTOPATH, THIN PREP IMAGR RFLX HPV (10/01/2011 4:11 PM CDT) SERVICE ATTENDANT CAFETERIA CYTOLOGY REPORT REFLEX HPV ? [facility] ? Anatomic Pathology Dept ?[address] [place] [place] ??[address] ?Phone: ? Fax: ? Patient: ??DEANA DUKES ? Accn No: ??[id number] ? , [id number] ?Collected: ??10/01/2011 ??4:11:00 PM ? All cases except those with a DP prefix are performed by pathologists ? from [facility]. Case ? type DP is performed by Dr. Arie Vigil, [facility], ? [facility] [place], [address], [address], [place], [place] ??[address] (CLIA ? #[id number]) (Ph. [phone]). ? SERVICE ATTENDANT CAFETERIA PAP - REFLEX HPV ? History ? Specimen Type: Endocervical ? LMP: hysterectomy TOTAL ? Previous Pap History: 2004 ?Specimen Adequacy ? Satisfactory for interpretation. ??The smear lacks endocervical or ? metaplastic cells, consistent with the patient's clinical history. ?Diagnosis ? NEGATIVE FOR INTRAEPITHELIAL LESION OR MALIGNANCY. ? (Previously noted as Within Normal Limits). ? Hydro Sprayer Operator/ EDR ??JMM ? Pathologist: ?10/05/11 ? Completed by: ? OKSANA MULLINS BSCT(ASCP) ? (Electronically signed by) ? 10/06/11 ? Comment ? Routine follow-up is suggested. ? Important Information About Pap Smears ? The Pap smear is associated with a low but well-documented and probably ? irreducible false negative rate of up to 10%. ??Additionally, the false ? positive rate for a diagnosis of invasive carcinoma or HSIL has been ? estimated to be approximately 1-10%. ??Therefore, any visible lesion on the ? cervix should be biopsied regardless of Pap smear findings. ? HPV Testing off the Thin Prep vial can be done as a means of further ? evaluating a Thin Prep Report. For information about ordering the HPV test, ? phone Virology at . ? Treatment or follow-up recommendations (if any) that are contained within ? this report are based upon general recommendations as contained in 2000 ? Consensus Guidelines For Cervical Cytological Abnormalities NAZ: September ? 2001, and are provided as a general guideline rather than as a specific ? recommendation. ??Final decisions about the most appropriate treatment and ? follow-up should be made on an individualized basis by the treating ? physician in consultation with his/her patient. [facility] [employer] [facility] 10/01/2011 4:11 PM CDT W Shayne Suarez MD PATHOLOGY/CYTOLOGY ORDERABLE S Final Result INTERFACE SYSTEM Refer to clinic/hospital department [facility] CLIA# [id number] [address] [place] [id number] from Last 3 Months or Most Recently Relevant to Health Maintenance Insurance [employer] CHO[employer] POS
--- OUTSIDE RECORDS SUMMARY | 2024-08-06 16:57 | XMS_ITS ---
Author Organization [facility] Address [address] [place] [address] Care Team Providers Care Harness Puller Name Role Phone [facility] Primary Care Provider [place], [facility] Unavailable Unavailable Allergies Allergen (clinical drug ingredient) Drug/Non Drug Allergy documented on EMR Reaction Allergy Type Onset Date Status Penicillin Unknown Drug Allergy Active REASON FOR VISIT Patient to clinic with complaint of increased pain Medications Medication SIG (Take, Route, Frequency, Duration) Notes Start Date End Date Status Mounjaro 7.5 MG/0.5ML 7.5 mg Subcutaneou s weekly for 30 days Not-Taking Acyclovir 400 MG Oral for 10 Days Not-Taking HYDROcodone-Acetaminophe n 10-325 MG TAKE 1 TO 2 TABLETS BY MOUTH EVERY 4 HOURS as needed for SEVERE pain for 30 07/11/2024 Active Eliquis 5 mg TAKE 1 TABLET BY RYLAN TH TWICE DAILY FOR 30 DAYS for 30 Not-Taking Hormone Cream Base - 2 clicks as directe d twice a day Not-Taking Promethazine HCl 25 MG 1 tablet as neede d Orally q 6 hours prn severe nausea for 30 days Active Ondansetron HCl 4 MG 1 tablet Orally q 4 hours prn nausea for 30 days 06/08/2024 Active LORazepam 2 MG 1/2 to 1 tab Orally three times a day prn anxiety for 30 days 06/08/2024 Active OneTouch Ultra 2 w/Device for 30 Days Active Veozah 45 mg TAKE 1 TABLET BY RYLAN TH EVERY DAY for 30 Active Docusate Sodium 100 MG 1 capsule as need ed Orally Once a day Active OxyCONTIN 10 MG 1 tablet Orally ever y 12 hrs Active OneTouch Delica Plus [id number] - TEST BLOOD SUGARS THREE TIMES DAILY for 30 Active OneTouch Ultra - TEST BLOOD SUGARS TH REE TIMES DAILY for 30 Active Social History Tobacco Use: Social History Observation Description Date Details (start date - stop date) Former Smoker NA - NA xTobacco Use/Smoking Question Answer Notes Are you a former smoker How long has it been since you last smoked? 5-10 years Section Notes: Depression screen completed 03/21/2024 score 0 Problems Problem Type SNOMED Code ICD Code Onset Dates Problem Status W/U Status Risk Notes Problem Malignant tumor of pancreas (109252195) Pancreatic carcinoma (C25.9) Active confirmed Problem Adenocarcinoma of pancreas (809661978) Adenocarcinoma of pancreas (C25.9) Active confirmed Vital Signs Temperature 96.8 degrees Fahrenheit 07/17/19 25 Blood pressure systolic 97 mm Hg 07/17/19 25 Blood pressure diastolic 69 mm Hg 025 Heart Rate 64 /min 07/17/2024 Respiratory Rate 20 /min 07/17/2024 Height 67 in 07/17/2024 Oximetry 98 % 07/17/2024 Height-cm 170.18 cm 07/17/2024 Encounters Encounter Location Date Provider Diagnosis [facility] Office [address] [place] [address] 07/17/2024 April Pina Cancer associated pa in G89.3 and Adenocarcinoma of pancreas C25.9 Assessments Encounter Date Diagnosis (ICD Code) Assessment Notes Treatment Notes Treatment Clinical Notes Section Notes 07/17/2024 Cancer associated pain (ICD-10 - G89.3) oxycodone; (oncology hc/apap 07/17/2024 Adenocarcinoma of pancreas (ICD-10 - C25.9) oncology 07/17/2024 Other Questions asked and answered; discharged to home. Plan Of Treatment Treatment Notes Assessment Notes Cancer associated pain oxycodone; (oncology hc/apap Adenocarcinoma of pancreas oncology Other Questions asked and answered; discharged to home. Next Appt Details Follow Up: 2 Months, Reason: recheck Provider Name:April Pina, 10/09/2024 11:20:00 AM, [address], [place], [address], Progress Notes * DEANA DUKES:[birth year] (53 yo F)Acc No.[id number]:07/17/2024 Patient:?DEANA DUKES M Provider:Celeste Pina APRN :1970???Age:53 Y???Sex:Female D ate:07/17/2024 Address:[address] [place], [place] [id number] Check In:10:31 AM CSTCheck O ut:11:12 AM FINANCIAL SYSTEMS ANALYST Subjective: * Chief Complaints: * ???Patient to clinic with co mplaint of increased pain * HPI: ???Provider Note:? patient is an alert 53 year old female kwown to practice and here with for recheck; complains of continued and worsening pain states although insurance did approve her chemo; has had problems getting scheduled; suggest call the oncologist [facility] or consider follow up back in [facility]; discuss with patient importance of time; continue oxycontin from oncology on schedule; continue hc/apap for break through pain; call before out of meds to facilitate scripts; discussed with patient and hhusband may require pain topical/patches for metabilazation of meds due to cancer; pancreas with metastasis? here with as insurance approval. * ROS:?General - Multi System:?Constitutional?Reportsdifficulty sleeping due to pain.?Gastrointestinal?Reports severe pain upper right abd and right mid back.? * Medical History:? * Cardiac Care Nurse History:?Date of Last Period?Total Hyst age 34.? * OB History:?Total living children?2.?Total pregnancies?2.? * Surgical History:?hysterecto my, total section 1992tummy virginie 2013cholecystectomy Colonoscopy 02/2023 * Hospitalization/Major Diagno stic Procedure:?see surgical hx * Family History:?Father: tan bryant 67 yrs, healthy.?Mother: alive 66 yrs, fibromyalgia, irritable bowel syndrome.? * Social History:?Tobacco Use:?xTobacco Use/Smoking?Are you a?former smoker ?How long has it been since you last smoked??5-10 years ???Depression screen completed 03/21/2024 score 0. * Medications:?TakingDocusate Sodium 100 MG Capsule 1 capsule as needed Orally Once a day OxyCONTIN 10 MG Tablet ER 12 Hour Abuse-Deterrent 1 tablet Orally every 12 hrs OneTouch Delica Plus [id number] - Miscellaneous TEST BLOOD SUGARS THREE TIMES DAILY OneTouch Ultra - Strip TEST BLOOD SUGARS THREE TIMES DAILY OneTouch Ultra 2 w/Device Kit Veozah 45 mg Tablet TAKE 1 TABLET BY MOUTH EVERY DAY LORazepam 2 MG Tablet 1/2 to 1 tab Orally three times a day prn anxiety Promethazine HCl 25 MG Tablet 1 tablet as needed Orally q 6 hours prn severe nausea Ondansetron HCl 4 MG Tablet 1 tablet Orally q 4 hours prn nausea HYDROcodone-Acetaminophen 10-325 MG Tablet TAKE 1 TO 2 TABLETS BY MOUTH EVERY 4 HOURS as needed for SEVERE pain Taking Docusate Sodium 100 MG Capsule 1 capsule as needed Orally Once a day Taking OxyCONTIN 10 MG Tablet ER 12 Hour Abuse-Deterrent 1 tablet Orally every 12 hrs Taking OneTouch Delica Plus [id number] - Miscellaneous TEST BLOOD SUGARS THREE TIMES DAILY Taking OneTouch Ultra - Strip TEST BLOOD SUGARS THREE TIMES DAILY Taking OneTouch Ultra 2 w/Device Kit Taking Veozah 45 mg Tablet TAKE 1 TABLET BY MOUTH EVERY DAY Taking LORazepam 2 MG Tablet 1/2 to 1 tab Orally three times a day prn anxiety Taking Promethazine HCl 25 MG Tablet 1 tablet as needed Orally q 6 hours prn severe nausea Taking Ondansetron HCl 4 MG Tablet 1 tablet Orally q 4 hours prn nausea Taking HYDROcodone-Acetaminophen 10- 325 MG Tablet TAKE 1 TO 2 TABLETS BY MOUTH EVERY 4 HOURS as needed for SEVERE pain Not-TakingEliquis 5 mg Tablet TAKE 1 TABLET BY MOUTH TWICE DAILY FOR 30 DAYS Mounjaro 7.5 MG/0.5ML Solution Pen-injector 7.5 mg Subcutaneous weekly Acyclovir 400 MG Tablet Oral Hormone Cream Base - Cream 2 clicks as directed twice a day Medication List reviewed and reconciled with the patientNot-Taking Eliquis 5 mg Tablet TAKE 1 TABLET BY MOUTH TWICE DAILY FOR 30 DAYS Not-Taking Mounjaro 7.5 MG/0.5ML Solution Pen-injector 7.5 mg Subcutaneous weekly Not-Taking Acyclovir 400 MG Tablet Oral Not-Taking Hormone Cream Base - Cream 2 clicks as directed twice a day Medication List reviewed and reconciled with the patient * Allergies:?Penicillinno[Lonnie rgies Verified] Objective: * Vitals:?Ht: 67 in, Temp:96.8 F, BP:97/69mm Hg, HR:64/min, RR:20/min, Oxygen sat %:98%, O2 Source: RA, Pain scale: 7 1-10, Ht-cm: 170.18 cm. * Examination: ???General Examination: ?GENERAL APPEARANCE:?alert; , female, uncomfortable due to pain.?HEAD:?normocephalic, atraumatic.?EYES:?PERRL; normal conjunctiva.?NECK/THYROID:?neck supple, full range of motion, no JVD, without thyromegaly or masses.?SKIN:?slight pale; warm and dry.?HEART:?Regular rate and rhythm, S1 S2 normal.?LUNGS:?clear to auscultation bilaterally, no wheezes, rales, or rhonchi.?EXTREMITIES:?no clubbing, cyanosis, or edema..?NEUROLOGIC:?alert and oriented, cognitive exam grossly normal.?PSYCH:?alert, oriented, cognitive function intact, cooperative with exam, good eye contact, mood/affect full range, speech clear somewhat anxious.? 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 Plan: * Treatment: 2.?Adenocarcinoma of pancrea s? Notes: oncology ?? 3.?Others? Notes: Questions asked and answered; discharged to home.?? * Procedure Codes:?3074F SYST BP LT 130 MM [id number] DIAST BP < 80 MM HG * Preventive Medicine:? ??Screenings:?LAST WELLNESS VISIT (if today's visit is wellness, use today's date):?Date:?07/13/2023 ?BREAST CANCER SCREENING:?Date of most recent screening:?04/14/2024 Repeat 1 year ?Provider recommendation:?repeat Repeat mammograms every 1-2 years. Continue monthly self breast examinations. Report any abnormal findings to provider. ?CERVICAL CANCER SCREENING:?Cancer screening cervical (age 21-64)?Annual pap smear ?Provider recommendation:?is s/p hysterectomy ?COLORECTAL CANCER SCREENING:?Date of last colonoscopy?03/05/2023 Repeat in 10 years per report from specialist. ?DEPRESSION SCREENING:?Date of most recent screening:?03/21/2024 ?The patient denies:?anxiety, depressed mood, difficulty sleeping, lack of energy, lack of interest in things that were enjoyable, poor appetite, sadness, thoughts of harming him/herself, thought of harming someone else, trouble concentrating, weight gain, weight loss, any depressive symptoms at this time ?Suicidal ideation:?has never been expressed/considered ?Homicidal ideation:?has never been expressed/considered ?PHQ inventory:?with score of 0-4 ?VACCINATIONS:?Is patient's pneumococcal vaccine current??N/A ?Influenza vaccinations:?is rarely done Refuses 03/21/2024 * Follow Up:?2 Months (Reason: recheck) * Billing Information: * Visit Code:? 44194 Office Visit, Est Pt., Level 3. * Procedure Codes:? 3074F SYST BP LT 130 MM HG. 3078F DIAST BP < 80 MM HG. * NCIAL SYSTEMS ANALYST Sign off status: Completed true * Provider:?April Pina DIRECTOR OF SPECIAL EVENTS Date:?07/17/19 Generated for Marin peña/Zakiya/Lia on:?08/06/2024 04:57 PM FINANCIAL SYSTEMS ANALYST History and Physical Notes * HPI (History of Present Illness) Category Sub-Category Detail Notes Category Not es Provider Note patient is an alert 53 year old female kwown to practice and here with for recheck; complains of continued and worsening pain states although insurance did approve her chemo; has had problems getting scheduled; suggest call the oncologist [facility] or consider follow up back in [facility]; discuss with patient importance of time; continue oxycontin from oncology on schedule; continue hc/apap for break through pain; call before out of meds to facilitate scripts; discussed with patient and hhusband may require pain topical/patches for metabilazation of meds due to cancer; pancreas with metastasis here with as insurance approval Examination Category Sub-Category Detail Notes Category Not es General Examination GENERAL APPEARANCE: alert; , female, uncomfortable due to pain HEAD: normocephalic, atrau matic EYES: PERRL; normal conjun ctiva NECK/THYROID: neck supple, full ra nge of motion, no JVD, without thyromegaly or masses HEART: Regular rate and rhy thm, S1 S2 normal LUNGS: clear to auscultatio n bilaterally, no wheezes, rales, or rhonchi NEUROLOGIC: alert and oriented, cognitive exam grossly normal SKIN: slight pale; warm an d dry EXTREMITIES: no clubbing, cyanosi s, or edema. PSYCH: alert, oriented, cog nitive function intact, cooperative with exam, good eye contact, mood/affect full range, speech clear somewhat anxious
--- OUTSIDE RECORDS SUMMARY | 2024-08-06 16:58 | XMS_ITS | Patient Health Record ---
Author Organization [facility] Address [address] [place] [address] Care Team Providers Care Credit Manager Name Role Phone Yovani Jovanni Primary Care Provider PINA, JOVANNI Unavailable Unavailable Allergies Allergen (clinical drug ingredient) Drug/Non Drug Allergy documented on EMR Reaction Allergy Type Onset Date Status Penicillin Unknown Drug Allergy Active Results Component Value Reference Range Notes Mammogram Screening Digital Breast Tomosynthesis, bilateral - 99812 Reviewed date:04/18/2024 01:08:33 PM Interpretation:Normal Performing Lab: Notes/Report: Normal Glucose Reviewed date:07/28/2024 11:35:22 AM Interpretation: Performing Lab: Notes/Report: Glucose 194 501 - 100 mg/dL Reason For Referral Reason metastatic ca Diagnosis 1 Mass of pancreas (K8 6.89) Diagnosis 2 Adenocarcinoma, meta static (C79.9) Referral Organization [facility] Referring Provider First Name Jovanni Referring Provider Last Name Pina Referring Provider Speciality Nurse Prac titioner Referred Provider [facility] Referred Provider Specialty Oncology General Notes Amara Villegas 07/09 12:00:12 PM >See referral notes. Referral Priority Routine Medications Medication SIG (Take, Route, Frequency, Duration) Notes Start Date End Date Status Docusate Sodium 100 MG 1 capsule as need ed Orally Once a day Active Mounjaro 7.5 MG/0.5ML 7.5 mg Subcutaneou s weekly for 30 days Not-Taking OxyCONTIN 10 MG 1 tablet Orally ever y 12 hrs Active Acyclovir 400 MG Oral for 10 Days Not-Taking HYDROcodone-Acetaminophe n 10-325 MG 2 tabs Orally q 4 hours prn severe pain for 30 days 07/25/2024 Active Eliquis 5 mg TAKE 1 TABLET BY RYLAN TH TWICE DAILY FOR 30 DAYS for 30 Not-Taking Promethazine HCl 25 MG 1 tablet [...] RYLAN TH EVERY DAY for 30 Active OneTouch Delica Plus [id number] - TEST BLOOD SUGARS THREE TIMES DAILY for 30 Active Hormone Cream Base - 2 clicks as directe d twice a day Not-Taking OneTouch Ultra - TEST BLOOD SUGARS TH REE TIMES DAILY for 30 Active Immunizations Vaccine Route Administration Date Status Comme nts Flucelvax Trivalent, Syringe 0.5 mL, PF Unknown 024 Refused Social History Tobacco Use: Social History Observation Description Date Details (start date - stop date) Former Smoker NA - NA xTobacco Use/Smoking Question Answer Notes Are you a former smoker How long has it been since you last smoked? 5-10 years PHQ-9 Question Answer Notes Little interest or pleasure in doing things Not at all Feeling down, depressed, or hopeless Not at all Trouble falling or staying asleep, or sleeping t oo much Not at all Feeling tired or having little energy Not at all Poor appetite or overeating Not at all Feeling bad about yourself, or that you are a failure, or have let yourself or your family down Not at all Trouble concentrating on thi ngs, such as reading the newspaper or watching television Not at all Moving or speaking so slowly that other people could have noticed. Or the opposite ? being so fidgety or restless that you have been moving around a lot more than usual Not at all Thoughts that you would be b brenda off , or of hurting yourself in some way Not at all Total Score 0 Section Notes: Depression screen completed 02/04/2023 score 0 01/08/2022 Depression screen completed 02/04/2023 score 0 Depression screen completed 02/04/2023 score 0 Depression screen completed 03/21/2024 score 0 01/08/2022 Depression screen completed 03/21/2024 score 0 Depression screen completed 03/21/2024 score 0 Depression screen completed 02/04/2023 score 0 Depression screen completed 03/21/2024 score 0 Depression screen completed 02/04/2023 score 0 Depression screen completed 02/04/2023 score 0 01/08/2022 Problems Problem Type SNOMED Code ICD Code Onset Dates Problem Status W/U Status Risk Notes Problem Hysterectomy (337410561) Absence of uterus (Z90.710) 07/11/19 Active confirmed Problem 375081810 Ventral hernia without obstruction or gangrene (K43.9) Active confirmed Problem 105044390 Menopausal and female climacteric states (N95.1) Active confirmed Problem 414151393 FDC (current) use of anticoagulants (Z79.01) Active confirmed Problem 58456746 Anxiety (F41.9) Active confirmed Problem Type II diabetes mellitus uncontrolled (085968440) Diabetes type 2, uncontrolled (E11.65) Active confirmed Problem Insomnia (201178195) Insomnia (G47.00) Active confirmed Problem 731662715 Obesity (BMI 30-39.9) (E66.9) Active confirmed Problem 543356195 Obesity, unspecified classification, unspecified obesity type, unspecified whether serious comorbidity present (E66.9) Active confirmed Problem Type II diabetes mellitus well controlled (831432817) Diabetes type 2, controlled (E11.9) Active confirmed Problem 966628007526874 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) Active confirmed Problem 68842873 Myalgia (M79.10) Active confirmed Problem 30362079 Other depression (F32.89) Active confirmed Problem Pain due to neoplastic disease (56814393743630) 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) Active confirmed Problem 8610845 Cold sore (B00.1) Active confirmed Problem 810184402 Left upper quadrant abdominal pain (R10.12) Active confirmed Problem 385260538 Body mass index [BMI] 31.0-31.9, adult (Z68.31) Active confirmed Problem 868437774 Body mass index [BMI] 33.0-33.9, adult (Z68.33) Active confirmed Problem Adenocarcinoma, metastatic (5385442) Adenocarcinoma, metastatic (C79.9) Active confirmed Problem 670333817 Body mass index [BMI] 30.0-30.9, adult (Z68.30) Active confirmed Problem Malignant tumor of pancreas (652867727) Pancreatic carcinoma (C25.9) Active confirmed Problem Adenocarcinoma of pancreas (219205693) Adenocarcinoma of pancreas (C25.9) Active confirmed Vital Signs Heart Rate 64 /min 07/17/2024 Temperature 96.8 degrees Fahrenheit 07/17/2024 Respiratory Rate 20 /min 07/17/2024 Height-cm 170.18 cm 07/17/2024 Oximetry 98 % 07/17/2024 Blood pressure diastolic 69 mm Hg 07/17/2024 Weight-kg 76.66 kg 07/11/2024 Height 67 in 07/17/2024 Blood pressure systolic 97 mm Hg 07/17/2024 Weight 169 lbs 07/11/2024 BMI 26.47 kg/m2 07/11/2024 Encounters Encounter Location Date Provider Diagnosis [facility] Office [address] [place] [address] 03/29/2024 Jovanni [place] Screening mammogram, encounter for Z12.31 [facility] [address] [address] 04/27/2024 Jovanni Pina Encounter for immunization Z23 and Immunization not carried out because of patient refusal Z28.21 [facility] [address] [address] 06/20/2024 Jovanni Pina Abdominal pain R10.9 ; Cancer associated pain G89.3 and Adenocarcinoma, metastatic C79.9 [facility] [address] [place] [address] 07/25/2024 Jovanni Pina Cancer associated pa in G89.3 [facility] [address] [place] [address] 08/12/2023 Jovanni Pina DVT (deep venous thrombosis) I82.409 ; Diabetes type 2, uncontrolled E11.65 ; Menopausal and female climacteric states N95.1 ; [place] R23.2 ; [employer] (current) use of oral hypoglycemic drugs Z79.84 ; FDC (current) use of anticoagulants Z79.01 and Adverse effect of insulin and oral hypoglycemic [antidiabetic] drugs, initial encounter T38.3X5A [facility] [address] [address] 09/14/2023 [facility] Type 2 diabetes vane itus without complications E11.9 ; Actinic keratoses L57.0 ; [employer] (current) use of oral hypoglycemic drugs Z79.84 and Long-term (current) use of injectable non-insulin antidiabetic drugs Z79.85 [facility] [address] [address] 12/21/2023 [facility] adjunct [employer] for [employer] (current) use of anticoagulants Z79.01 ; Long-term (current) use of injectable non-insulin antidiabetic drugs Z79.85 and Type 2 diabetes mellitus without complications E11.[address] [address] 03/21/2024 [facility] FDC (current) use of anticoagulants Z79.01 ; Left leg pain M79.605 ; Menopausal and female climacteric states N95.1 ; Insomnia G47.00 ; Anxiety F41.9 ; Type 2 diabetes mellitus without complications E11.9 ; Breast cancer screening Z12.39 and Depression screen Z13.31 [facility] [address] [address] 07/11/2024 [facility] Absence of uterus Z90.710 ; DVT (deep venous thrombosis) I82.409 ; Cancer associated pain G89.3 ; Adenocarcinoma, metastatic C79.9 and Diabetes type 2, uncontrolled E11.65 [facility] [address] [address] 07/17/2024 [facility] Cancer associated pa in G89.3 and Adenocarcinoma of pancreas C25.9 [facility] [address] [address] 06/08/2024 [facility] FDC (current) use of anticoagulants Z79.01 ; DVT (deep venous thrombosis) I82.409 ; Type 2 diabetes mellitus without complications E11.9 ; Mass of pancreas K86.89 ; Abdominal pain R10.9 ; Nausea alone R11.0 ; Anxiety F41.9 ; History of deep vein thrombosis (DVT) of lower extremity Z86.718 ; Hospital discharge follow-up Z09 and Adenocarcinoma, metastatic C79.9 Assessments Encounter Date Diagnosis (ICD Code) Assessment Notes Treatment Notes Treatment Clinical Notes Section Notes 08/12/2023 Diabetes type 2, uncontrolled (ICD-10 - E11.65) stop metformin glipizide er monitor micheal galicia 08/12/2023 DVT (deep venous thrombosis) (ICD-10 - I82.409) eliquis 09/14/2023 Type 2 diabetes mellitus without complications (ICD-10 - E11.9) grayson monitor micheal 09/14/2023 Actinic keratoses (ICD-10 - L57.0) dr bond 12/21/2023 [employer] (current) use of anticoagulants (ICD-10 - Z79.01) grayson 12/21/2023 Long-term (current) use of injectable non-insulin antidiabetic drugs (ICD-10 - Z79.85) 03/21/2024 [employer] (current) use of anticoagulants (ICD-10 - Z79.01) eliquis 03/21/2024 Left leg pain (ICD-10 - M79.605) tramadol 03/29/2024 Screening mammogram, encounter for (ICD-10 - Z12.31) 04/27/2024 Encounter for immunization (ICD-10 - Z23) 06/08/2024 FDC (current) use of anticoagulants (ICD-10 - Z79.01) 06/08/2024 DVT (deep venous thrombosis) (ICD-10 - I82.409) eliquis 06/20/2024 Abdominal pain (ICD-10 - R10.9) 06/20/2024 Cancer associated pain (ICD-10 - G89.3) 07/11/2024 DVT (deep venous thrombosis) (ICD-10 - I82.409) eliquis 07/11/2024 Absence of uterus (ICD-10 - Z90.710) 07/17/2024 Cancer associated pain (ICD-10 - G89.3) oxycodone; (oncology hc/apap 07/17/2024 Adenocarcinoma of pancreas (ICD-10 - C25.9) oncology 07/25/2024 Cancer associated pain (ICD-10 - G89.3) 07/11/2024 Cancer associated pain (ICD-10 - G89.3) hc/apap 06/20/2024 Adenocarcinoma, metastatic (ICD-10 - C79.9) 04/27/2024 Immunization not carried out because of patient refusal (ICD-10 - Z28.21) 06/08/2024 Type 2 diabetes mellitus without complications (ICD-10 - E11.9) mounjaro 12/21/2023 Type 2 diabetes mellitus without complications (ICD-10 - E11.9) monitor bs 03/21/2024 Menopausal and female climacteric states (ICD-10 - N95.1) veozah 09/14/2023 FDC (current) use of oral hypoglycemic drugs (ICD-10 - Z79.84) 08/12/2023 Menopausal and female climacteric states (ICD-10 - N95.1) veozah 08/12/2023 [place] (ICD-10 - R23.2) 09/14/2023 Long-term (current) use of injectable non-insulin antidiabetic drugs (ICD-10 - Z79.85) 03/21/2024 Insomnia (ICD-10 - G47.00) 06/08/2024 Mass of pancreas (ICD-10 - K86.89) oncology 07/11/2024 Adenocarcinoma, metastatic (ICD-10 - C79.9) oncology 07/11/2024 Diabetes type 2, uncontrolled (ICD-10 - E11.65) 03/21/2024 Anxiety (ICD-10 - F41.9) xanax 06/08/2024 Abdominal pain (ICD-10 - R10.9) hc/apap 08/12/2023 [employer] (current) use of oral hypoglycemic drugs (ICD-10 - Z79.84) 08/12/2023 [employer] medical terminology (current) use of anticoagulants (ICD-10 - Z79.01) 03/21/2024 Type 2 diabetes mellitus without complications (ICD-10 - E11.9) mounjaro 06/08/2024 Nausea alone (ICD-10 - R11.0) zofran phenergan 06/08/2024 Anxiety (ICD-10 - F41.9) lorazepam 03/21/2024 Breast cancer screening (ICD-10 - Z12.39) mammogram [employer] 08/12/2023 Adverse effect of insulin and oral hypoglycemic [antidiabetic] drugs, initial encounter (ICD-10 - T38.3X5A) 06/08/2024 History of deep vein thrombosis (DVT) of lower extremity (ICD-10 - Z86.718) 03/21/2024 Depression screen (ICD-10 - Z13.31) 06/08/2024 Hospital discharge follow-up (ICD-10 - Z09) 06/08/2024 Adenocarcinoma, metastatic (ICD-10 - C79.9) 08/12/2023 Other Questions asked and answered; discharged to home. 09/14/2023 Other Questions asked and answered; discharged to home. 12/21/2023 Other Questions asked and answered; discharged to home. 03/21/2024 Other Questions asked and answered; discharged to home. Questions asked and answered; discharged to home. 06/08/2024 Other Questions asked and answered; discharged to home. 07/11/2024 Other Questions asked and answered; discharged to home. 07/17/2024 Other Questions asked and answered; discharged to home. Plan Of Treatment Pending Test Test Name Order Date Mammogram Screen Matt [id number]/[id number] Next Appt Details Provider Name:Jovanni Pina, 10/09/2024 11:20:00 AM, [address] , [facility], [place], [address], Insurance Providers Payer Name Payer Address Payer Phone Subscriber Number Group Number Insured Name Patient Relationship to Insured Coverage Start Date Coverage End Date [employer] [place] [address] [place] [address] [phone] [id number] DEANA DUKES Self - patient is the insured Medications Administered Medication Instructions Date of Administration Dosage Notes DEPO-Medrol 03/19/2022 40 mg [address]-64 Patient tolerated well, advised to wait 20 min at clinic dexAMETHasone 03/19/2022 4 mg [facility]: [id number] Patient tolerated well, advised to wait 20 min at clinic Medical (General) History Medical History History ICD Code fever blisters hormone therapy seasonal allergies deep vein thrombosis Pancreatic carcinoma C25.9 Surgical History Surgery Date(Month/Year) hysterectomy, total section 1992 miguel rachel 2012 cholecystectomy Colonoscopy 02/2023 Hospitalization History Reason Date(Month/Year) see surgical hx
--- OUTSIDE RECORDS SUMMARY | 2024-08-06 16:58 | XMS_ITS | Encounter Summary ---
Author Organization [facility] Address [address] [place] [address] Care Team Providers Care Patternmaker Plaster Name Role Phone Unavailable Primary Care Provider Unavailabl e Encounter Details Date Type Department Care Team (Latest Contact Info) Description 05/20/1999 Outpatient Historical [facility] [address] [facility] [address] [place] [id number] Unspecified hemorrhoids without mention of complication (Primary Dx) Social History Tobacco Use Types Packs/Day Years Used Date Smoking Tobacco: Never Assessed Comments Unknown Sex and Gender Information Value Date Recorded Sex Assigned at Not on file 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
--- OUTSIDE RECORDS SUMMARY | 2024-08-06 16:58 | XMS_ITS ---
Author Organization [facility] Address [address] [place] [address] Care Team Providers Care Clinical Genetics Laboratory Chief Name Role Phone PinaJovanni Primary Care Provider [phone] PINA, JOVANNI Unavailable Unavailable Medications Medication SIG (Take, Route, Frequency, Duration) Notes Start Date End Date Status HYDROcodone-Acetaminophen 10-325 MG 2 tabs Orally q 4 hours prn severe pain for 30 days 07/25/2024 Active Encounters Encounter Location Date Provider Diagnosis [facility] [address] [place] [address] 07/25/2024 Jovanni Pina Cancer associated pa in G89.3 Assessments Encounter Date Diagnosis (ICD Code) Assessment Notes Treatment Notes Treatment Clinical Notes Section Notes 07/25/2024 Cancer associated pain (ICD-10 - G89.3) Plan Of Treatment Medication Medication Name Sig Start Date Stop Date Notes HYDROcodone-Acetaminophen 10-325 MG 2 tabs Orally q 4 hours prn severe pain for 30 days 07/25/2024 Next Appt Details Provider Name:Jovanni Carmel Pina, 10/09/2024 11:20:00 AM, [address], [address], [place], [address], Progress Notes * DEANA DUKES MDOB:[birth year] (53 yo F)Acc No.[id number]:07/25/2024 Patient:?EDANA DUKES :1970???Age:53 Y???Sex:Female Address:[address] [place] [address] * Refills? Refill HYDROcodone-Acetaminophen Tablet, 10-325 MG, Orally, 240, 2 tabs, q 4 hours prn severe pain, 30 days, Refills=0 * true * Date:? Generated for Marin peña/Zakiya/Crowitting on:?08/06/2024 04:58 PM ADMEASURER
--- OUTSIDE RECORDS SUMMARY | 2024-08-06 16:58 | XMS_ITS ---
Author Organization [facility] Address [address] [place] [address] Care Team Providers Care Group Exercise Instructor Name Role Phone Pina [facility] Primary Care Provider PINA, [facility] Unavailable Unavailable Allergies Allergen (clinical drug ingredient) Drug/Non Drug Allergy documented on EMR Reaction Allergy Type Onset Date Status Penicillin Unknown Drug Allergy Active Results Component Value Reference Range Notes Glucose Reviewed date:07/28/2024 11:35:22 AM Interpretation: Performing Lab: Notes/Report: Glucose 194 501 - 100 mg/dL REASON FOR VISIT Patient to clinic with for 1 month f/u. Patient had port placed last week. Was to have liver biopsy in [place] but had a panic attack on table and was unable. Medications Medication SIG (Take, Route, Frequency, Duration) Notes Start Date End Date Status OneTouch Ultra 2 w/Device for 30 Days Active OneTouch Delica Plus [id number] - TEST BLOOD SUGARS THREE TIMES DAILY for 30 Active Acyclovir 400 MG Oral for 10 Days Not-Taking OneTouch Ultra - TEST BLOOD SUGARS TH REE TIMES DAILY for 30 Active Hormone Cream Base - 2 clicks as directe d twice a day Not-Taking Docusate Sodium 100 MG 1 capsule as need ed Orally Once a day Active OxyCONTIN 10 MG 1 tablet Orally ever y 12 hrs Active Mounjaro 7.5 MG/0.5ML 7.5 mg Subcutaneou s weekly for 30 days Not-Taking Ondansetron HCl 4 MG 1 tablet Orally q 4 hours prn nausea for 30 days 06/08/2024 Active Promethazine HCl 25 MG 1 tablet as neede d Orally q 6 hours prn severe nausea for 30 days Active HYDROcodone-Acetaminophe n 10-325 MG TAKE 1 TO 2 TABLETS BY MOUTH EVERY 4 HOURS as needed for SEVERE pain for 30 07/11/2024 Active Eliquis 5 mg TAKE 1 TABLET BY RYLAN TH TWICE DAILY FOR 30 DAYS for 30 Not-Taking LORazepam 2 MG 1/2 to 1 tab Orally three times a day prn anxiety for 30 days 06/08/2024 Active Veozah 45 mg TAKE 1 TABLET BY RYLAN TH EVERY DAY for 30 Active Social History Tobacco Use: [...] Status W/U Status Risk Notes Problem Hysterectomy (195050940) Absence of uterus (Z90.710) 07/11/2024 Active confirmed Vital Signs Temperature 97.2 degrees Fahrenheit 07/11/19 25 Blood pressure systolic 96 mm Hg 07/11/19 25 Blood pressure diastolic 59 mm Hg 025 Heart Rate 64 /min 07/11/2024 Respiratory Rate 20 /min 07/11/2024 Height 67 in 07/11/2024 Weight 169 lbs 07/11/2024 BMI 26.47 kg/m2 07/11/2024 Oximetry 99 % 07/11/2024 Height-cm 170.18 cm 07/11/2024 Weight-kg 76.66 kg 07/11/2024 Encounters Encounter Location Date Provider Diagnosis [facility] Office [address] [id number] 07/11/2024 April Pina Absence of uterus Z90.710 ; DVT (deep venous thrombosis) I82.409 ; 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 Plan Of Treatment Medication Medication Name Sig Start Date Stop Date Notes HYDROcodone-Acetaminophen 10-325 MG TAKE 1 TO 2 TABLETS BY MOUTH EVERY 4 HOURS as needed for SEVERE pain for 30 07/11/2024 Treatment Notes Assessment Notes DVT (deep venous thrombosis) eliquis Cancer associated pain hc/apap Adenocarcinoma, metastatic oncology Other Questions asked and answered; discharged to home. 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 Patient had port placed last week. Was to have liver biopsy in [place] but had a panic attack on table and was unable. * HPI: ???Provider Note:? patient is an alert 53 year old female known to practice and here for recheck and medication; complains of severe pain upper left abd; cancer pain; pancreatic cancer; metastosis has been to [facility] as well as oncology [facility]; states travel to [facility] is just too difficult for her now complains anxiety; lorazepam has been increased to 2 mg; states she tries to wait till hs; advised take 1/2 to 1 during day prn as well? conitnue hc/apap for break through pain as directed; oxycontin bid as directed oncology new port right anterior upper chest; healing well has been off eliquis for dvt for port placement; ok to restart tomorrow has been off mounjaro for port placement bs in clinic 193; ok to restart mounjaro if bs above 150 2 hours pp for her diabetes type 2 surgical hyst; takes veozah for hot flashes recheck 3 months and prn. * ROS:?General - Multi System:?Gastrointestinal?Reportsabdominal pain .? * Medical History:? * Azure Developer History:?Date of Last Period?Total Hyst age 34.? * OB History:?Total living children?2.?Total pregnancies?2.? * Surgical History:?hysterecto my, total section 1993tummy avery 2012cholecystectomy Colonoscopy 02/2023 * Hospitalization/Major Diagno stic Procedure:?see [...] Orally every 12 hrs OneTouch Delica Plus [id number] - Miscellaneous TEST BLOOD SUGARS THREE TIMES [...] every 12 hrs Taking OneTouch Delica Plus [id number] - Miscellaneous TEST BLOOD SUGARS THREE TIMES DAILY Taking OneTouch Ultra - Strip TEST BLOOD SUGARS THREE TIMES DAILY Taking WhoWantsMeTouch Ultra 2 w/Device Kit Taking Veozah 45 [...] 2 clicks as directed twice a day Not-Taking Eliquis 5 mg Tablet TAKE 1 TABLET BY MOUTH TWICE DAILY FOR 30 DAYS Not-Taking Mounjaro 7.5 MG/0.5ML Solution Pen-injector 7.5 mg Subcutaneous weekly Not-Taking Acyclovir 400 MG Tablet Oral Not-Taking Hormone Cream Base - Cream 2 clicks as directed twice a day DiscontinuedALPRAZolam 1 MG Tablet 1/2 to 1 Orally Twice a day prn anxiety glipiZIDE ER 2.5 MG Tablet Extended Release 24 Hour 1 tablet with breakfast Orally Once a day metFORMIN HCl ER 500 MG Tablet Extended Release 24 Hour TAKE 2 TABLETS BY MOUTH EVERY DAY Oral Once a day Medication List reviewed and reconciled with the patientDiscontinued ALPRAZolam 1 MG Tablet 1/2 to 1 Orally Twice a day prn anxiety Discontinued glipiZIDE ER 2.5 MG Tablet Extended Release 24 Hour 1 tablet with breakfast Orally Once a day Discontinued metFORMIN HCl ER 500 MG Tablet Extended Release 24 Hour TAKE 2 TABLETS BY MOUTH EVERY DAY Oral Once a day Medication List reviewed and reconciled with the patient * Allergies:?Penicillinno[Lonnie rgies Verified] Objective: * Vitals:?Ht: 67 in, Wt:169lbs , Wt-k.66 kg, BMI:26.47Index, Temp:97.2F, BP:96/59mm Hg, HR:64/min, RR:20/min, Oxygen sat %:99%, O2 Source: RA, Pain scale: 4 1-10, Ht-cm: 170.18 cm. * Examination: ???CQM Exceptions: ?Cervical Ca Screening Not Performed (not mapped to metric):?Reason:?History of hysterectomy? Assessment: * Assessment: 1.?Absence of uterus - Z90.7 10 (Primary)???2.?DVT (deep venous thrombosis) - I82.409???3.?Cancer associated pain - G89.3???4.?Adenocarcinoma, metastatic - C79.9???5.?Diabetes type 2, uncontrolled - E11.65??? Plan: * Treatment: 2.?Cancer associated pain? Refill HYDROcodone-Acetaminophen Tablet, 10-325 MG, TAKE 1 TO 2 TABLETS BY MOUTH EVERY 4 HOURS as needed for SEVERE pain, 30, 90 Tablet, Start Date: 07/11/2024, Refills 0.?? Notes: hc/apap?? 3.?Adenocarcinoma, metastati c? Notes: oncology?? 4.?Diabetes type 2, uncontro lled?LAB: Glucose ? Value Reference Range ?Glucose 194 501 - 100 mg/dL * This lab was reviewed by Lisa Villegas RN on 07/28/2024 at 11:35 AM CAMERA SUPERVISOR 5.?Others? Notes: Questions asked and answered; discharged to home.?? * Procedure Codes:?3074F SYST BP LT 130 MM [id number] DIAST BP < 80 MM [id number] GLUCOSE BLOOD TEST IH * Preventive Medicine:? ??Screenings:?LAST WELLNESS VISIT (if [...] vaccinations:?is rarely done Refuses 03/21/2024 * Follow Up:?3 Months (Reason: recheck) Forms: * Billing Information: * Visit Code:? 42873 Office Visit, Est Pt., Level 3. * Procedure Codes:? 3074F SYST BP LT 130 MM HG. 3078F DIAST BP < 80 MM HG. 19505 GLUCOSE BLOOD TEST IH. Care Plan Details* * RA SUPERVISOR Sign off status: Completed true * Provider:?April Pina PAYMENT POSTER Date:?07/11/19 Generated for Marin peña/Zakiya/eTransmitting on:?08/06/2024 04:58 PM CAMERA SUPERVISOR History and Physical Notes * HPI (History of Present Illness) Category Sub-Category Detail Notes Category Not es Provider Note patient is an alert 53 year old female known to practice and here for recheck and medication; complains of severe pain upper left abd; cancer pain; pancreatic cancer; metastosis has been to [facility] as well as oncology [facility]; states travel to [facility] is just too difficult for her now complains anxiety; lorazepam has been increased to 2 mg; states she tries to wait till hs; advised take 1/2 to 1 during day prn as well conitnue hc/apap for break through pain as directed; oxycontin bid as directed oncology new [place] right anterior upper chest; healing well has been off eliquis for dvt for port placement; ok to restart tomorrow has been off mounjaro for port placement bs in clinic 193; ok to restart mounjaro if bs above 150 2 hours pp for her diabetes type 2 surgical hyst; takes veozah for hot flashes recheck 3 months and prn Examination Category Sub-Category Detail Notes Category Not es CQM Exceptions Cervical Ca Screenin g Not Performed (not mapped to metric): Reason:: History of hysterectomy
[2024-08-06 18:04] LABS: Thyroid Stimulating Hormone 0.79 uIU/mL (0.27-4.20)
[2024-08-06] MEDS: enoxaparin 80 mg/0.8 mL Syringe 70 MG SUBCUT (19:04)
[2024-08-06] MEDS: lactulose oral liq 20 gm/30 mL UDC PO (19:05)
[2024-08-06] MEDS: pantoprazole 40 mg SDV IVP (19:05)
[2024-08-06] MEDS: sodium chloride 0.9% 1,000 ML 75 ML IV (19:06)
--- NOTE | 2024-08-06 19:20 | PC.NURSE ---
notified Dr. Garrett of patient needing IV pain medication due to NG tube placement. Verbal orders to give Morphine 2mg IV Q4 hours and Zofran 4mg Q4H as needed.
[2024-08-06] MEDS: morphine 4 mg/mL SDV 1 mL 2 MG IVP ×2 (19:44→23:31)
--- NOTE | 2024-08-06 20:07 | PM.CONSULT ---
Providers/Reason For Consult Consulting Physician/Specialty*: Dr. Douglas general surgery Reason for Consult*: SBO grade cancer Attending Physician: Ten Glynn MD Primary Care Provider: April Pina APN History of Present Illness History of Present Illness Kaley ZafarJingKeely Dukes is a 53 year old female with advanced pancreatic cancer. Admitted for SBO. Patient reports that she started passing gas this evening. Patient has had 2 days of no bowel movements. Patient had an enema and subsequently had a bowel movement earlier today. She reports being distended and having pain for approximately 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 NG tube was placed earlier and patient has experienced some relief. Medications/Allergies Home Medications ?Medication ?Instructions ?Recorded ?Confirmed ?Last Taken ?Type glucometer testing kit #1 ea 06/17/23 08/06/24 Unknown Rx fezolinetant 45 mg tablet (Veozah) 45 mg PO DAILY 09/10/23 08/06/24 07/23/24 History apixaban 5 mg tablet (Eliquis) 5 mg PO BID 06/03/24 08/06/24 06/20/24 History Held on 07/05/24. Instructions: Resume on 07/06/24. lorazepam 2 mg tablet (Ativan) 2 mg PO Q6H PRN Sleep/anxiety #20 06/03/24 08/06/24 07/01/24 Rx tabs promethazine 25 mg tablet 25 mg PO Q6H PRN nausea and 06/03/24 08/06/24 07/04/24 Rx vomiting #20 tabs hydrocodone 10 mg-acetaminophen 1 tab PO 6XD PRN Pain (Scale Score 06/15/24 08/06/24 07/05/24 History 325 mg tablet 1-3) tirzepatide 7.5 mg/0.5 mL 7.5 mg SUBCUT Q7D 06/15/24 08/06/24 07/23/24 History subcutaneous pen injector (Mounjaro) gemcitabine 200 mg intravenous 1,880 mg IV Q7D #27 ea 07/12/24 08/06/24 Unknown Rx solution paclitaxel protein-bound 100 mg 235 mg IV Q7D #9 ea 07/12/24 08/06/24 Unknown Rx intravenous suspension (Abraxane) prochlorperazine maleate 10 mg 10 mg PO Q4H PRN mild nausea #30 07/21/24 08/06/24 Unknown Rx tablet (Compazine) tabs polyethylene glycol 3350 17 414 g PO DAILY 07/23/24 08/06/24 07/23/24 History gram/dose oral powder (Miralax) fentanyl 50 mcg/hr transdermal 1 patch transdermal Q72H 30 days 07/27/24 08/06/24 Unknown Rx patch #10 ea lactulose 20 gram/30 mL oral 20 g (30 mL) PO Q6H #1,200 mL 08/03/24 08/06/24 Unknown Rx solution Allergies Allergy/AdvReac Type Severity Reaction Status Date / Time Penicillins Allergy Mild Unknown Verified 08/03/24 07:52 Current Medications Generic Name Dose Route Start Last Admin Trade Name Freq PRN Reason Stop Dose Admin Enoxaparin Sodium 70 mg 08/06/24 18:00 08/06/24 19:04 Enoxaparin 80 Mg/0.8 Ml Syringe SUBCUT 70 mg Q12H LILIAN Administration Sodium Chloride 1,000 mls @ 75 mls/hr 08/06/24 17:25 08/06/24 19:06 Sodium Chloride 0.9% IV 75 mls/hr .[id number] LILIAN Administration Lactulose 20 gm 08/06/24 17:25 08/06/24 19:05 Lactulose Oral Liq 20 Gm/30 Ml Udc PO 20 gm Q8H LILIAN Administration Morphine Sulfate 2 mg 08/06/24 19:22 08/06/24 19:44 Morphine 4 Mg/Ml Sdv 1 Ml IVP 2 mg Q4H PRN Administration SEVERE PAIN Pantoprazole Sodium 40 mg 08/06/24 17:25 08/06/24 19:05 Pantoprazole 40 Mg Sdv IVP 40 mg Q12H LILIAN Administration PFSH Acute PFSH: Medical History 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 Bilateral pulmonary embolism Left leg DVT Surgical History S/P cholecystectomy History of hysterectomy History of section History of ventral hernia repair Social History Smoking and tobacco/nicotine status: never used tobacco/nicotine Quit status (tobacco/nicotine): has quit using Year quit tobacco: 2016 Former quit date comment: 1 ppd X 20 years Vitals/I&O/Wt Last Vital Signs Temp 98.2 F 08/06/24 11:00 Pulse 107 H 08/06/24 17:25 Resp 16 08/06/24 19:44 BP 122/70 08/06/24 17:25 Pulse Ox 94 08/06/24 19:44 O2 Del Method Room Air 08/06/24 17:27 Weight last 48 hrs Weight 162 lb 1 oz Weight 160 lb Physical Exam Narrative: Chest: Unlabored breathing room air. No lymphadenopathy. Heart: Regular rate and rhythm. Abdomen: Soft, diffusely tender, distended. No masses or lymphadenopathy. Data 08/06/24 11:35 08/06/24 11:35 A&P Assessment and plan (1) Bowel obstruction: (2) Pancreatic cancer metastasized to liver: Plan 53-year-old female with history of advanced pancreatic cancer who was admitted with an SBO. I agree with NG tube to low continuous suction, IV fluids, correct any electrolyte derangements. Noted portal vein clot and cavernous transformation of the portal vein, I would not recommend anticoagulation at this point. I explained that given the advanced nature of her pancreatic cancer this may represent a malignant small bowel obstruction with a high recurrence risk. Patient should have a discussion with the oncologist. At this point I agree with bowel rest and conservative management. PDMP PDMP Reviewed: Not Reviewed Coding Level of Care Code 59571 Diagnoses Bowel obstruction K56.609 Pancreatic cancer metastasized to liver C25.9; C78.7
[2024-08-06] MEDS: HYDROcodone-acetaminophen 10-325 mg Tablet 1 TAB PO (21:20)
[2024-08-07] VITALS (7 sets, daily range): BP systolic 104–126; BP diastolic 68–82; PULSE 76–90; RESP 14–20; TEMP 36.3–36.8; O2SAT 92–95; BMI 25.3
[2024-08-07] MEDS: lactulose oral liq 20 gm/30 mL UDC PO ×2 (02:23→09:49)
[2024-08-07] MEDS: HYDROcodone-acetaminophen 10-325 mg Tablet 1 TAB PO ×2 (02:23→06:22)
[2024-08-07] MEDS: morphine 4 mg/mL SDV 1 mL 2 MG IVP ×2 (03:37→07:52)
[2024-08-07 04:17] LABS: Basophils % 0.3 %; Eosinophils # 0.1 10^3/uL (0.0-0.8); Hematocrit 37.1 % (36-47); Lymphocytes # 1.1 10^3/uL (0.8-4.8); Lymphocytes % 11.4 %; Mean Corpuscular HGB Conc 31.8 g/dL (30-55); Mean Corpuscular Hemoglobin 28.6 pg (27-33); Mean Corpuscular Volume 89.8 fl (85-98); Mean Platelet Volume 10.5 fL (7.4-10.4); Monocytes # 1.3 10^3/uL (0.2-0.9); Monocytes % 12.8 %; Neutrophils % 74.2 %; Nucleated Red Blood Cells % 0 %; Platelet Count 135 10^3/cmm (157-399); Red Blood Count 4.13 10^6/uL (3.85-5.65); Red Cell Distribution Width 13.1 % (12.1-15.1); White Blood Count 9.98 10^3/uL (3.29-11.43)
[2024-08-07 04:39] LABS: Alanine Aminotransferase 61 U/L (0-33); Albumin Level 3.9 g/dL (3.5-5.2); Alkaline Phosphatase 390 U/L (35-105); Anion Gap 13.8 (5-19); Aspartate Amino Transferase 30 U/L (0-32); Blood Urea Nitrogen 12 mg/dL (6-20); Carbon Dioxide 25 mmol/L (22-29); Chloride 104 mmol/L (98-107); Creatinine Clr Calc Pharmacy 139.4566; Globulin 2.5 g/dL (1.3-4.6); Glomerular Filtration Rate 130.1 mL/min (90-130); Glucose 139 mg/dL (65-115); Magnesium 2.1 mg/dL (1.7-2.3); Osmolality Calculated 290 mOsm/kg (285-295); Phosphorus 3.8 mg/dL (2.5-4.5); Potassium 3.8 mmol/L (3.5-5.1); Sodium 139 mmol/L (136-145); Total Bilirubin 0.6 mg/dL (0.15-1.2); Total Protein 6.4 g/dL (6.6-8.7)
[2024-08-07] MEDS: pantoprazole 40 mg SDV IVP (05:28)
[2024-08-07] MEDS: enoxaparin 80 mg/0.8 mL Syringe 70 MG SUBCUT (05:28)
[2024-08-07] MEDS: sodium chloride 0.9% 1,000 ML 75 ML IV (07:51)
--- NOTE | 2024-08-07 09:03 | PC.CHAP ---
Pastoral Care Encounter/Spiritual Assessment Type of Contact [] Declined director of research center visit [] Patient/Family/Request visit [] Outpatient visit [] Follow-up visit [] Physician referral [] Code/Alert [x] Routine visit [] Staff referral [] Actively dying [] Patient sleeping [] Family support [] [] Out of room [] Palliative care [] [x] Receiving care in room [] Pre-surgical visit [] Trauma [] Long length of stay [] ICU visit [] Other: Relational/Emotional Strength [] Patient feels connected with others/family/visitors/staff [] Distress [] Loneliness/isolation [] Abandonment Spirituality of Patient [] Person of Herminia [] Attends Yazidism of their [place] [] Believes in Prayer [] Reads Bible or Restorationism materials [] There are Spiritual issues to be addressed Combiner Interventions [] Prayer [] Active listening [] Non-anxious presence [] Spiritual/emotional support [] Crisis/trauma care [] Spiritual counseling [] Bereavement support [] Provided bereavement packet [] Provided Bible/devotional materials [] Provided toy/stuffed animal, coloring book to patient or family member [] Provided Communion [] Anointing/[place] [] Salvation [] Completed spiritual assessment [] Other: Impact on Illness or Injury [] Angry [] Fearful [] Anxious [] Often cries [] Exhaustion [] Unable to work [] Unable to attend advent [] Unable to walk/stand [] Unable to read [] Unable to drive [] Unable to eat/drink [] Unable to sleep [] Unable to be with family [] Patient intubated [] Other: Summary Time spent with patient
[2024-08-07] MEDS: polyethylene glycol 3350 Pkt 17 gm PO (09:49)
--- NOTE | 2024-08-07 11:05 | PM.DCS ---
Discharge Providers Date of Admission: 08/06/24 13:30 Date of Discharge: August 07, 2024 Attending Provider at Admission: Ten Glynn MD Attending Provider at Discharge: Ten Glynn MD Primary Care Provider: April Pina APN Diagnoses at Discharge Discharge Diagnosis (1) Bowel obstruction: Status: Resolved (2) Pancreatic cancer metastasized to liver: Status: Acute Reason for Visit Reason for Visit: abd pain, pt states she has pancreatic cancer Hospital Course Hospital Course Kaley ZafarJingKeely Dukes is a 53 year old female with history of DVT and pulmonary embolism, history of metastatic pancreatic cancer with liver mets, currently on chemotherapy, recent history of port placement, on narcotics for cancer pain, who presents to [facility] due to abdominal pain, decreased bowel movements, feeling nauseous. Currently patient is alert oriented x 3, following all commands, she is tired, she did not get much sleep last night, she tells me that her last good bowel movement about 3 days ago she has had some bowel movements but they have been liquidy and small, she tells me that she is not passing gas much gas from below, does have poor appetite, no fevers, no chills, no lightheaded, dizziness no hemoptysis, no hematochezia. She is on a bowel regimen however continues to have lack of good bowel movements continues to have abdominal distention. Patient does report that she has been taking Eliquis in about 2 months, initially was held for her liver biopsy, but it never got completed as she had nausea and anxiety prior to the biopsy, in addition was held for her port placement she has not resumed it as of yet Patient was admitted to [facility] for abdominal pain CT/CT abdomen pelvis w con* [id number] IMPRESSION: 1. New dilation of large and small bowel loops without discrete transition point, most likely ileus. Developing obstruction or changes of bowel ischemia not entirely excluded. 2. Pancreatic mass at the head and neck of the pancreas up to 4.9 cm slightly increased. 3. Numerous metastatic liver lesions again noted and slightly increased. 4. 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 There is developing cavernous transformation at the arnold hepatis. There is bland or tumor thrombus within a portal vein within the arnold hepatis. This is increased. 5. 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 There is a small nonocclusive thrombus within the splenic vein near the mass. This is increased. -With history of constipation -Patient was admitted to [facility] for small bowel obstruction, general surgery consulted, NG tube, IV fluids, overall clinically improved, discharged home with bowel regimen, slowly advance diet For history of DVT and PE, advised to continue home medication, discussed compliance Physical Exam Const: COMMON NORMALS: no acute distress and patient oriented x3 Resp: COMMON NORMALS: normal respiratory effort, No retractions, No use of accessory muscles and clear to auscultation bilaterally AUSCULTATION: clear to auscultation bilaterally Cardio: COMMON NORMALS: regular rate, regular rhythm, S1 normal heart sound present and S2 normal heart sound present RATE: regular rate RHYTHM: regular rhythm HEART SOUNDS: S1 normal heart sound present and S2 normal heart sound present GI: COMMON NORMALS: Normal to inspection, nondistended, normoactive bowel sounds present and non-tender Extremity: COMMON NORMALS: no pedal edema Neuro: COMMON NORMALS: patient oriented x3 Psych: COMMON NORMALS: mental status grossly normal Discharge Data Studies Completed and Pending Completed Studies During Hospitalization Category Date Time Status CT abdomen pelvis w con* [id number] Stat Cat Scan 08/06/24 11:58 Completed XR KUB [id number] Stat Exams 08/06/24 11:12 Completed XR chest 1V portable [id number] Stat Exams 08/06/24 14:24 Completed Pending at discharge Category Date Time Status Complete Blood Count w/Auto AM LABS Lab 08/08/24 04:00 Ordered Complete Blood Count w/Auto AM LABS Lab 08/09/24 04:00 Ordered Comprehensive Metabolic Panel AM LABS Lab 08/08/24 04:00 Ordered Comprehensive Metabolic Panel AM LABS Lab 08/09/24 04:00 Ordered Magnesium AM LABS Lab 08/08/24 04:00 Ordered Magnesium AM LABS Lab 08/09/24 04:00 Ordered Phosphorus AM LABS Lab 08/08/24 04:00 Ordered Phosphorus AM LABS Lab 08/09/24 04:00 Ordered Urinalysis Routine Lab 08/06/24 17:25 Uncollected Radiology Impressions KUB X-Ray 08/06/24 11:12 IMPRESSION: Dilated loop of bowel in the right lower quadrant with gaseous distension of the colon, possibly ileus. Developing obstruction not entirely excluded. Abdomen/Pelvis CT 08/06/24 11:58 IMPRESSION: 1. New dilation of large and small bowel loops without discrete transition point, most likely ileus. Developing obstruction or changes of bowel ischemia not entirely excluded. 2. Pancreatic mass at the head and neck of the pancreas up to 4.9 cm slightly increased. 3. Numerous metastatic liver lesions again noted and slightly increased. 4. 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 There is developing cavernous transformation at the arnold hepatis. There is bland or tumor thrombus within a portal vein within the arnold hepatis. This is increased. 5. 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 There is a small nonocclusive thrombus within the splenic vein near the mass. This is increased. Chest X-Ray 08/06/24 14:24 IMPRESSION: NG tube terminates in the stomach. Laboratory Results WBC 9.98 10^3/uL (3.29-11.43) 08/07/24 02:09 RBC 4.13 10^6/uL (3.85-5.65) 08/07/24 02:09 Hgb 11.80 g/dL (11.27-16.99) 08/07/24 02:09 Hct 37.1 % (36-47) 08/07/24 02:09 MCV 89.8 fl (85-98) 08/07/24 02:09 MCH 28.6 pg (27-33) 08/07/24 02:09 MCHC 31.8 g/dL (30-55) 08/07/24 02:09 RDW 13.1 % (12.1-15.1) 08/07/24 02:09 Plt Count 135 10^3/cmm (157-399) L D 08/07/24 02:09 MPV 10.5 fL (7.4-10.4) H 08/07/24 02:09 Neut % (Auto) 74.2 % 08/07/24 02:09 Lymph % (Auto) 11.4 % 08/07/24 02:09 [place] % (Auto) 12.8 % 08/07/24 02:09 Eos % (Auto) 1.0 % 08/07/24 02:09 Baso % (Auto) 0.3 % 08/07/24 02:09 Neut # (Auto) 7.40 10^3/uL (1.8-7.7) 08/07/24 02:09 Lymph # (Auto) 1.1 10^3/uL (0.8-4.8) 08/07/24 02:09 [place] # (Auto) 1.3 10^3/uL (0.2-0.9) H 08/07/24 02:09 Eos # (Auto) 0.1 10^3/uL (0.0-0.8) 08/07/24 02:09 Baso # (Auto) 0.0 10^3/uL (0.0-0.1) 08/07/24 02:09 Nucleated RBC % (auto) 0 % 08/07/24 02:09 Nucleated RBCs # 0.0 /100WBC 08/07/24 02:09 PT 14.20 SECONDS (12.1-14.9) 08/06/24 11:35 INR 1.03 (0.8-1.2) 08/06/24 11:35 Sodium 139 mmol/L (136-145) 08/07/24 02:09 Potassium 3.8 mmol/L (3.5-5.1) 08/07/24 02:09 Chloride 104 mmol/L (98-107) 08/07/24 02:09 Carbon Dioxide 25 mmol/L (22-29) 08/07/24 02:09 Anion Gap 13.8 (5-19) 08/07/24 02:09 BUN 12 mg/dL (6-20) 08/07/24 02:09 Creatinine 0.5 mg/dL (0.5-0.9) 08/07/24 02:09 GFR Calculation 130.1 mL/min (90-130) H 08/07/24 02:09 Glucose 139 mg/dL (65-115) H 08/07/24 02:09 Calculated Osmolality 290 mOsm/kg (285-295) 08/07/24 02:09 Lactic Acid 0.9 mmol/L (0.5-2.2) 08/06/24 11:35 Calcium 9.0 mg/dL (8.5-10.5) 08/07/24 02:09 Phosphorus 3.8 mg/dL (2.5-4.5) 08/07/24 02:09 Magnesium 2.1 mg/dL (1.7-2.3) 08/07/24 02:09 Total Bilirubin 0.6 mg/dL (0.15-1.2) 08/07/24 02:09 AST 30 U/L (0-32) 08/07/24 02:09 ALT 61 U/L (0-33) H 08/07/24 02:09 Alkaline Phosphatase 390 U/L (35-105) H 08/07/24 02:09 Total Protein 6.4 g/dL (6.6-8.7) L 08/07/24 02:09 Albumin 3.9 g/dL (3.5-5.2) 08/07/24 02:09 Globulin 2.5 g/dL (1.3-4.6) 08/07/24 02:09 Lipase 8 U/L (13-60) L 08/06/24 11:35 Procalcitonin 0.25 ng/mL (0-0.5) 08/06/24 11:35 TSH 0.79 uIU/mL (0.27-4.20) 08/06/24 11:35 Urine Color Yellow (Yellow) 08/06/24 12:51 Urine Appearance Clear (CLEAR) 08/06/24 12:51 Urine pH 5.5 (5-7) 08/06/24 12:51 Ur Specific Cora 1.084 (1.005-1.030) H 08/06/24 12:51 Urine Protein Trace (Negative) A 08/06/24 12:51 Urine Glucose (UA) Negative (Normal) 08/06/24 12:51 Urine Ketones 1+ (Negative) H 08/06/24 12:51 Urine Blood Negative (Negative) 08/06/24 12:51 Urine Nitrate Negative (Negative) 08/06/24 12:51 Urine Bilirubin Negative (Negative) 08/06/24 12:51 Urine Urobilinogen 1.0 mg/dL (Negative) 08/06/24 12:51 Ur Leukocyte Esterase Negative (Negative) 08/06/24 12:51 Urine RBC 0-4 /hpf (0-2) H 08/06/24 12:51 Urine WBC 0-4 /hpf (0-5) H 08/06/24 12:51 Ur Squamous Epith Cells 0-4 /hpf (0-5) H 08/06/24 12:51 Amorphous Sediment Not Reportable 08/06/24 12:51 Urine Bacteria Trace /hpf (NONE) 08/06/24 12:51 Vitals Last Vital Signs Temp 97.4 F L 08/07/24 07:33 Pulse 76 08/07/24 07:33 Resp 14 08/07/24 07:52 BP 112/72 08/07/24 07:33 Pulse Ox 95 08/07/24 07:33 O2 Del Method Room Air 08/07/24 07:33 Discharge Plan Discharge Patient Disposition: Home Condition: Stable Prescriptions: New polyethylene glycol 3350 17 gram Powder In Packet 17 g PO DAILY 30 Days Qty: 30 0RF lactulose 20 gram packet 20 g PO Q12H 30 Days Qty: 30 0RF Rx Instructions: until desired laxative effect magnesium citrate [OneLAX Magnesium Citrate] Solution 150 ml PO DAILY PRN (Reason: constipation) 30 Days Qty: 296 0RF Continued Veozah 45 mg tablet 45 mg PO DAILY hydrocodone-acetaminophen 10-325 mg tablet 1 tab PO 6XD PRN (Reason: Pain (Scale Score 1-3)) paclitaxel protein-bound [Abraxane] 100 mg suspension for reconstitution 235 mg IV Q7D Qty: 9 11RF Rx Instructions: Administer on days 1, 8, 15 of a 21 day cycle gemcitabine 200 mg recon soln 1,880 mg IV Q7D Qty: 27 11RF Rx Instructions: Administer on days 1, 8, 15 prochlorperazine maleate [Compazine] 10 mg tablet 10 mg PO Q4H PRN (Reason: mild nausea) Qty: 30 3RF fentanyl 50 mcg/hr patch 72 hour 1 patch transdermal Q72H 30 Days Qty: 10 0RF (DME) glucometer testing kit See Rx Instructions .Route .MEDSUPPLY Qty: 1 0RF Rx Instructions: Glucometer testing kit, check blood sugar 3 times daily -Lancets #100, ? Strips #100 Eliquis 5 mg tablet 5 mg PO BID promethazine 25 mg tablet 25 mg PO Q6H PRN (Reason: nausea and vomiting) Qty: 20 0RF lorazepam [Ativan] 2 mg tablet 2 mg PO Q6H PRN (Reason: Sleep/anxiety) Qty: 20 0RF Discontinued lactulose 20 gram/30 mL solution 20 g PO Q6H Qty: 1200 1RF Rx Instructions: to achieve 2 to 3 soft stools per day Mounjaro 7.5 mg/0.5 mL pen injector 7.5 mg SUBCUT Q7D Rx Instructions: On Wednesday polyethylene glycol 3350 [Miralax] 17 gram/dose Powder 414 g PO DAILY No Action oxycodone [OxyContin] 10 mg tablet,oral only,ext.rel.12 hr 10 mg PO Q12H 30 Days Qty: 60 0RF Linzess 145 mcg capsule 145 mcg PO DAILY Qty: 14 2RF Rx Instructions: take 2 capsules day 1 then 1 daily if bowels are moving Discharge Orders: Discharge Order (Routine); Ordered 08/07/24 Ordered By: Ten Glynn Referrals: April Pina APN [Primary Care Provider] - 08/14/24 2:20 pm Patient Instructions: Lactulose (By mouth), Polyethylene Glycol 3350 (By mouth) (Miralax, Healthylax..., Magnesium Citrate (By mouth), Abdominal Pain (DC), Bowel Obstruction (DC), Opioid Safety Discharge Attestations Time Spent in Discharge Care*: greater than 30 min Quality Metrics Clinical Quality Measures [ No reported AMI, CVA or VTE this stay] Coding Level of Care Code 06662 Total time (in minutes) for Discharge: 45 Diagnoses Bowel obstruction K56.609 Pancreatic cancer metastasized to liver C25.9; C78.7
--- NOTE | 2024-08-07 11:14 | P.PN_ITS ---
Subjective 2 Subjective: Feeling better Passing gas Less distended Vitals/I&O/Wt Last Vital Signs Temp 97.4 F L 08/07/24 07:33 Pulse 76 08/07/24 07:33 Resp 14 08/07/24 07:52 BP 112/72 08/07/24 07:33 Pulse Ox 95 08/07/24 07:33 O2 Del Method Room Air 08/07/24 07:33 08/06/24 08/07/24 08/07/24 22:59 06:59 14:59 Intake Total 956.25 / 956.25 Balance 956.25 / 956.25 Weight last 48 hrs Weight 162 lb Weight 162 lb 1 oz Weight 160 lb Physical Exam 2 Narrative: Chest: Unlabored breathing room air. Heart: Regular rate and rhythm. Abdomen: Soft, nontender, nondistended. . Data 08/07/24 02:09 08/07/24 02:09 A&P Assessment and plan (1) Bowel obstruction: Plan 53-year-old female who presented with an SBO. History of pancreatic cancer. Now passing gas and feeling better. Remove NG tube and give clears. If tolerates can start regular diet after 1 PM. If she tolerates that she can be discharged today. Discussed with hospitalist. PDMP PDMP Reviewed: Not Reviewed Attestations 2 Medical Necessity Statement*: N/A Coding Level of Care Code 00137 Diagnoses Bowel obstruction K56.609 Time Spent (min) 30
--- NOTE | 2024-08-07 13:08 | PC.NURSE ---
Message to nurse order stated to allow pt to have clear liquid until 1300, then advance to full liquid. If continued to tolerate, the pt could d/c after 1400
== END 2024-08-07 14:05 | disposition home or self-care (01) | DRG 388 ==
LOC: ER 13:35 → MEDSURG 16:56
PROVIDERS: Admitting Provider Family Medicine; Emergency Provider Emergency Medicine; PCP Nurse Practitioner Family; Visit Provider Family Medicine
DX: K56.609 Unspecified intestinal obstruction, unspecified as to partial versus complete obstruction (principal); I81 Portal vein thrombosis; C25.0 Malignant neoplasm of head of pancreas; C78.7 Secondary malignant neoplasm of liver and intrahepatic bile duct; Z86.718 Personal history of other venous thrombosis and embolism; Z86.711 Personal history of pulmonary embolism; Z79.60 Long term (current) use of unspecified immunomodulators and immunosuppressants; Z95.828 Presence of other vascular implants and grafts; Z79.891 Long term (current) use of opiate analgesic; G89.3 Neoplasm related pain (acute) (chronic); Z79.01 Long term (current) use of anticoagulants; K59.00 Constipation, unspecified; I87.009 Postthrombotic 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 of unspecified extremity; Z87.891 Personal history of nicotine dependence
CPT/HCPCS: 36415; 36592; 71045; 74018; 74177; 80053; 81001; 83605; 83690; 83735; 84100; 84145; 84443; 85025; 85610; 94664; 96372; 96374; 96375; 99285; J1171; J1650; J2060; J2270; J2405; J2470; J7030

== ENCOUNTER 2024-08-31 07:30 | Oncology outpatient (recurring) (ONCR) | payer BC, SELFPAY ==
[2024-08-10 07:54] LABS: Basophils % 0.4 %; Eosinophils # 0.1 10^3/uL (0.0-0.8); Eosinophils % 2.6 %; Hematocrit 33.4 % (36-47); Lymphocytes # 0.6 10^3/uL (0.8-4.8); Lymphocytes % 13.8 %; Mean Corpuscular HGB Conc 32.3 g/dL (30-55); Mean Corpuscular Hemoglobin 28.9 pg (27-33); Mean Corpuscular Volume 89.3 fl (85-98); Mean Platelet Volume 9.9 fL (7.4-10.4); Monocytes # 0.5 10^3/uL (0.2-0.9); Monocytes % 9.9 %; Neutrophils # 3.32 10^3/uL (1.8-7.7); Neutrophils % 72.9 %; Nucleated Red Blood Cells % 0 %; Platelet Count 169 10^3/cmm (157-399); Red Blood Count 3.74 10^6/uL (3.85-5.65); Red Cell Distribution Width 12.7 % (12.1-15.1); White Blood Count 4.56 10^3/uL (3.29-11.43)
[2024-08-10 08:31] LABS: Alanine Aminotransferase 32 U/L (0-33); Albumin Level 3.7 g/dL (3.5-5.2); Alkaline Phosphatase 287 U/L (35-105); Anion Gap 15.2 (5-19); Aspartate Amino Transferase 22 U/L (0-32); Blood Urea Nitrogen 11 mg/dL (6-20); Calcium 8.6 mg/dL (8.5-10.5); Carbon Dioxide 25 mmol/L (22-29); Chloride 101 mmol/L (98-107); Globulin 2.1 g/dL (1.3-4.6); Glomerular Filtration Rate 130.1 mL/min (90-130); Glucose 158 mg/dL (65-115); Osmolality Calculated 287 mOsm/kg (285-295); Potassium 4.2 mmol/L (3.5-5.1); Sodium 137 mmol/L (136-145); Total Bilirubin 0.7 mg/dL (0.15-1.2); Total Protein 5.8 g/dL (6.6-8.7)
[2024-08-10] MEDS: aprepitant 130 mg/18 ml SDV IVP (10:26)
[2024-08-10] MEDS: sodium chloride 0.9% 250 ML 50 ML IV (10:26)
[2024-08-10] MEDS: dexamethasone 4 mg/mL INJ 5 mL 12 MG IVP (10:35)
[2024-08-10] MEDS: famotidine 20 mg/2 mL INJ IVP (10:38)
[2024-08-10] MEDS: palonosetron 0.25 mg/5 mL SDV IVP (10:40)
[2024-08-10 10:49] VITALS: RESP 16
[2024-08-10] MEDS: morphine 4 mg/mL SDV 1 mL IVP ×4 (10:49→13:07)
[2024-08-10 11:22] VITALS: RESP 16
[2024-08-10] MEDS: FLEXIBLE CONTAINER IV (11:25)
[2024-08-10] MEDS: PACLITAXEL PROTEIN BOUND IV (11:25)
[2024-08-10 12:27] VITALS: RESP 16
[2024-08-10] MEDS: gemcitabine 1,900 MG in sodium chloride 0.9% (100 ml) 100 ML 299.94 MG IV (12:27)
[2024-08-10 13:07] VITALS: RESP 16
[2024-08-10 13:25] VITALS: BP 108/52; PULSE 80; RESP 16; TEMP 36.6; O2SAT 98
[2024-08-17 07:58] LABS: Basophils % 0.7 %; Eosinophils # 0.1 10^3/uL (0.0-0.8); Eosinophils % 2.2 %; Hematocrit 30.8 % (36-47); Lymphocytes # 0.6 10^3/uL (0.8-4.8); Lymphocytes % 19.9 %; Mean Corpuscular HGB Conc 32.8 g/dL (30-55); Mean Corpuscular Hemoglobin 29.1 pg (27-33); Mean Corpuscular Volume 88.8 fl (85-98); Mean Platelet Volume 9.5 fL (7.4-10.4); Monocytes # 0.2 10^3/uL (0.2-0.9); Neutrophils # 1.79 10^3/uL (1.8-7.7); Neutrophils % 64.9 %; Nucleated Red Blood Cells % 0 %; Platelet Count 116 10^3/cmm (157-399); Red Blood Count 3.47 10^6/uL (3.85-5.65); Red Cell Distribution Width 12.9 % (12.1-15.1); White Blood Count 2.76 10^3/uL (3.29-11.43)
[2024-08-17 08:18] LABS: Alanine Aminotransferase 60 U/L (0-33); Albumin Level 3.8 g/dL (3.5-5.2); Alkaline Phosphatase 259 U/L (35-105); Anion Gap 11.9 (5-19); Aspartate Amino Transferase 37 U/L (0-32); Blood Urea Nitrogen 8 mg/dL (6-20); Calcium 8.9 mg/dL (8.5-10.5); Carbon Dioxide 27 mmol/L (22-29); Chloride 100 mmol/L (98-107); Globulin 2.1 g/dL (1.3-4.6); Glomerular Filtration Rate 130.1 mL/min (90-130); Glucose 168 mg/dL (65-115); Lactate Dehydrogenase 143 U/L (135-214); Magnesium 1.9 mg/dL (1.7-2.3); Osmolality Calculated 282 mOsm/kg (285-295); Potassium 3.9 mmol/L (3.5-5.1); Sodium 135 mmol/L (136-145); Total Bilirubin 0.3 mg/dL (0.15-1.2); Total Protein 5.9 g/dL (6.6-8.7)
--- NOTE | 2024-08-17 09:16 | PC.PHAR ---
ABRAXANE/GEMZAR: TRAVIS ASKED THAT I DISCONTINUE PATIENTS CURRENT REGIMEN. HE WOULD LIKE HER TREATMENT EXTENDED TO [id number]. HE ASKED THAT I START CYCLE 2 DAY 1 TODAY. I PLACED THESE ORDERS IN DRAFT FOR HIM TO REVIEW AND ORDER.
[2024-08-17] MEDS: sodium chloride 0.9% 250 ML 75 ML IV (09:42)
[2024-08-17] MEDS: dexamethasone 4 mg/mL INJ 5 mL 12 MG IVP (09:43)
[2024-08-17] MEDS: famotidine 20 mg/2 mL INJ IVP (09:43)
[2024-08-17] MEDS: palonosetron 0.25 mg/5 mL SDV IVP (09:43)
[2024-08-17] MEDS: paclitaxel protein-bound 230 MG in empty flexible container 1 EACH 92 MG IV (10:22)
[2024-08-17] MEDS: gemcitabine 1,900 MG in sodium chloride 0.9% (100 ml) 100 ML 299.94 MG IV (11:08)
[2024-08-17 11:58] VITALS: BP 106/74; PULSE 68; RESP 18; TEMP 36.6; O2SAT 97
[2024-08-24 08:29] LABS: Basophils % 0.4 %; Eosinophils # 0.1 10^3/uL (0.0-0.8); Eosinophils % 2.1 %; Lymphocytes # 0.5 10^3/uL (0.8-4.8); Lymphocytes % 20.4 %; Mean Corpuscular HGB Conc 32.6 g/dL (30-55); Mean Corpuscular Hemoglobin 28.8 pg (27-33); Mean Corpuscular Volume 88.3 fl (85-98); Mean Platelet Volume 10.8 fL (7.4-10.4); Monocytes # 0.2 10^3/uL (0.2-0.9); Neutrophils # 1.59 10^3/uL (1.8-7.7); Neutrophils % 66.3 %; Nucleated Red Blood Cells % 0 %; Platelet Count 44 10^3/cmm (157-399); Red Blood Count 3.51 10^6/uL (3.85-5.65); Red Cell Distribution Width 13.2 % (12.1-15.1)
[2024-08-24 08:52] LABS: Alanine Aminotransferase 52 U/L (0-33); Albumin Level 4.2 g/dL (3.5-5.2); Alkaline Phosphatase 249 U/L (35-105); Anion Gap 13.9 (5-19); Aspartate Amino Transferase 30 U/L (0-32); Blood Urea Nitrogen 9 mg/dL (6-20); Calcium 9.2 mg/dL (8.5-10.5); Carbon Dioxide 26 mmol/L (22-29); Chloride 101 mmol/L (98-107); Globulin 2.5 g/dL (1.3-4.6); Glomerular Filtration Rate 130.1 mL/min (90-130); Glucose 154 mg/dL (65-115); Lactate Dehydrogenase 153 U/L (135-214); Magnesium 1.9 mg/dL (1.7-2.3); Osmolality Calculated 286 mOsm/kg (285-295); Potassium 3.9 mmol/L (3.5-5.1); Sodium 137 mmol/L (136-145); Total Bilirubin 0.5 mg/dL (0.15-1.2); Total Protein 6.7 g/dL (6.6-8.7)
--- NOTE | 2024-08-24 10:49 | PC.PHAR ---
LUDA CAME TO MY OFFICE REQUESTING NEW TX BUILD FOR MS [facility]ACR[facility]: ABRAXANE/GEMZAR DAY 1,15 OF 28 DAY CYCLE. TREATMENT TO RESUME CYCLE 2 DAY 15 ON 08/31/24
[2024-08-31 07:58] LABS: Basophils % 0.6 %; Eosinophils # 0.1 10^3/uL (0.0-0.8); Eosinophils % 3.9 %; Hematocrit 32.6 % (36-47); Lymphocytes # 0.5 10^3/uL (0.8-4.8); Lymphocytes % 15.8 %; Mean Corpuscular HGB Conc 32.2 g/dL (30-55); Mean Corpuscular Hemoglobin 29.2 pg (27-33); Mean Corpuscular Volume 90.8 fl (85-98); Mean Platelet Volume 10.4 fL (7.4-10.4); Monocytes # 0.4 10^3/uL (0.2-0.9); Monocytes % 10.9 %; Neutrophils # 2.25 10^3/uL (1.8-7.7); Neutrophils % 68.2 %; Nucleated Red Blood Cells % 0 %; Platelet Count 166 10^3/cmm (157-399); Red Blood Count 3.59 10^6/uL (3.85-5.65); Red Cell Distribution Width 14.7 % (12.1-15.1)
[2024-08-31 08:07] LABS: Alanine Aminotransferase 23 U/L (0-33); Albumin Level 4.1 g/dL (3.5-5.2); Alkaline Phosphatase 175 U/L (35-105); Anion Gap 13.9 (5-19); Aspartate Amino Transferase 21 U/L (0-32); Blood Urea Nitrogen 8 mg/dL (6-20); Calcium 9.2 mg/dL (8.5-10.5); Carbon Dioxide 26 mmol/L (22-29); Chloride 104 mmol/L (98-107); Globulin 2.3 g/dL (1.3-4.6); Glomerular Filtration Rate 130.1 mL/min (90-130); Glucose 136 mg/dL (65-115); Osmolality Calculated 290 mOsm/kg (285-295); Potassium 3.9 mmol/L (3.5-5.1); Sodium 140 mmol/L (136-145); Total Bilirubin 0.4 mg/dL (0.15-1.2); Total Protein 6.4 g/dL (6.6-8.7)
[2024-08-31] MEDS: sodium chloride 0.9% 250 ML 75 ML IV (09:14)
[2024-08-31] MEDS: dexamethasone 4 mg/mL INJ 5 mL 12 MG IVP (09:14)
[2024-08-31] MEDS: famotidine 20 mg/2 mL INJ IVP (09:15)
[2024-08-31] MEDS: palonosetron 0.25 mg/5 mL SDV IVP (09:15)
[2024-08-31] MEDS: paclitaxel protein-bound 230 MG in empty flexible container 1 EACH 92 MG IV (10:15)
[2024-08-31] MEDS: gemcitabine 1,800 MG in sodium chloride 0.9% (100 ml) 100 ML 294.68 MG IV (10:56)
[2024-08-31 17:17] VITALS: BP 96/64; PULSE 74; RESP 18; TEMP 36.4; O2SAT 98
== END 2024-09-04 23:59 | disposition home or self-care (01) ==
PROVIDERS: Nurse Practitioner; PCP Nurse Practitioner Family; Visit Provider Internal Medicine
DX: Z53.9 Procedure and treatment not carried out, unspecified reason; Z51.11 Encounter for antineoplastic chemotherapy; C25.9 Malignant neoplasm of pancreas, unspecified; C78.7 Secondary malignant neoplasm of liver and intrahepatic bile duct; Z79.899 Other long term (current) drug therapy
CPT/HCPCS: 80053; 83615; 83735; 85025; 96375; 96413; 96417; J0185; J1100; J2270; J2469; J3490; J7050; J9201; J9264

== ENCOUNTER 2024-09-28 08:00 | Oncology outpatient (recurring) (ONCR) | payer BC, SELFPAY ==
--- NOTE | 2024-09-05 08:45 | MR_ITS ---
WS: [id number] MRI THORACIC SPINE WITH CONTRAST TECHNIQUE: Sagittal T1, T2 and STIR imaging. Axial T2 imaging. Post gadolinium imaging was obtained. CLINICAL INFORMATION: pancreatic cancer metastasized to liver COMPARISON: None. FINDINGS: Focal enhancing lesion in the RIGHT anterior T12 vertebral body suspicious for metastatic disease given clinical history. This measures approximately 8 mm. No other focal enhancing metastatic lesions. Atypical hemangioma would be an additional less likely consideration. Cord signal is normal. Splenomegaly. Hepatic metastasis. Cardiomegaly. Partially visualized pancreatic neoplasm. MR/MR thoracic spine wo/w [id number] IMPRESSION: 1. Focal enhancing lesion in the T12 vertebral body suspicious for metastatic disease considering clinical history. Atypical hemangioma would be an additiona l less likely consideration 2. No other enhancing bony lesions visualized.
--- NOTE | 2024-09-05 09:30 | MR_ITS ---
WS: [id number] MRI LUMBAR SPINE WITH CONTRAST TECHNIQUE: Sagittal T1, T2 and STIR imaging. Axial T1 and T2 imaging. Post gadolinium imaging was obtained. CLINICAL INFORMATION: pancreatic cancer metastasized to liver COMPARISON: PET/CT 08/04/2024 FINDINGS: Enhancing lesion in the T12 vertebral body measuring 8 mm suspicious for metastatic disease. No other focal enhancing bony lesions in the lumbar spine. L1-L2: Normal. L2-L3: Normal. L3-L4: Mild annular bulging. Mild facet arthropathy. Spinal canal and foramen are patent. L4-L5: Mild annular bulging. Mild facet arthropathy. Spinal canal and foramen are patent. L5-S1: Slight anterolisthesis. Mild annular bulging. Slight contact of the LEFT S1 nerve root. Foramen are patent. Mild facet arthropathy. Visualized pelvic bony structures: Normal. Paravertebral soft tissues: Normal. MR/MR lumbar spine wo/w con [id number] IMPRESSION: 1. Enhancing lesion in the T12 vertebral body measuring 8 mm suspicious for m etastatic disease given clinical history. 2. No other enhancing lesions in the lumbar spine
[2024-09-07 08:29] LABS: Basophils % 1.5 %; Eosinophils % 1.5 %; Hematocrit 32.4 % (36-47); Lymphocytes # 0.5 10^3/uL (0.8-4.8); Lymphocytes % 24.2 %; Mean Corpuscular HGB Conc 31.8 g/dL (30-55); Mean Corpuscular Hemoglobin 28.8 pg (27-33); Mean Corpuscular Volume 90.5 fl (85-98); Mean Platelet Volume 10.1 fL (7.4-10.4); Monocytes # 0.1 10^3/uL (0.2-0.9); Monocytes % 6.7 %; Neutrophils # 1.23 10^3/uL (1.8-7.7); Neutrophils % 63.5 %; Nucleated Red Blood Cells % 0 %; Platelet Count 124 10^3/cmm (157-399); Red Blood Count 3.58 10^6/uL (3.85-5.65); Red Cell Distribution Width 14.5 % (12.1-15.1); White Blood Count 1.94 10^3/uL (3.29-11.43)
[2024-09-07 08:50] LABS: Alanine Aminotransferase 40 U/L (0-33); Albumin Level 4.2 g/dL (3.5-5.2); Alkaline Phosphatase 183 U/L (35-105); Anion Gap 15.4 (5-19); Aspartate Amino Transferase 30 U/L (0-32); Blood Urea Nitrogen 9 mg/dL (6-20); Calcium 9.1 mg/dL (8.5-10.5); Carbon Dioxide 24 mmol/L (22-29); Chloride 104 mmol/L (98-107); Globulin 2.1 g/dL (1.3-4.6); Glomerular Filtration Rate 130.1 mL/min (90-130); Glucose 158 mg/dL (65-115); Osmolality Calculated 290 mOsm/kg (285-295); Potassium 4.4 mmol/L (3.5-5.1); Sodium 139 mmol/L (136-145); Total Bilirubin 0.5 mg/dL (0.15-1.2); Total Protein 6.3 g/dL (6.6-8.7)
[2024-09-14 08:24] LABS: Basophils % 0.5 %; Eosinophils # 0.1 10^3/uL (0.0-0.8); Eosinophils % 1.9 %; Hematocrit 33.7 % (36-47); Lymphocytes # 0.7 10^3/uL (0.8-4.8); Lymphocytes % 16.7 %; Mean Corpuscular HGB Conc 31.5 g/dL (30-55); Mean Corpuscular Hemoglobin 28.3 pg (27-33); Mean Corpuscular Volume 89.9 fl (85-98); Mean Platelet Volume 10.9 fL (7.4-10.4); Monocytes # 0.4 10^3/uL (0.2-0.9); Monocytes % 9.6 %; Neutrophils # 2.96 10^3/uL (1.8-7.7); Neutrophils % 70.8 %; Nucleated Red Blood Cells % 0 %; Platelet Count 70 10^3/cmm (157-399); Red Blood Count 3.75 10^6/uL (3.85-5.65); Red Cell Distribution Width 15.1 % (12.1-15.1); White Blood Count 4.18 10^3/uL (3.29-11.43)
[2024-09-14 08:42] LABS: Alanine Aminotransferase 18 U/L (0-33); Albumin Level 4.1 g/dL (3.5-5.2); Alkaline Phosphatase 142 U/L (35-105); Anion Gap 14.2 (5-19); Aspartate Amino Transferase 20 U/L (0-32); Blood Urea Nitrogen 8 mg/dL (6-20); Calcium 9.2 mg/dL (8.5-10.5); Carbon Dioxide 25 mmol/L (22-29); Chloride 105 mmol/L (98-107); Creatinine Clr Calc Pharmacy 114.7442; Globulin 2.1 g/dL (1.3-4.6); Glomerular Filtration Rate 105.4 mL/min (90-130); Glucose 127 mg/dL (65-115); Osmolality Calculated 290 mOsm/kg (285-295); Potassium 4.2 mmol/L (3.5-5.1); Sodium 140 mmol/L (136-145); Total Bilirubin 0.5 mg/dL (0.15-1.2); Total Protein 6.2 g/dL (6.6-8.7)
[2024-09-14] MEDS: dexamethasone 4 mg/mL INJ 5 mL 12 MG IVP (09:16)
[2024-09-14] MEDS: sodium chloride 0.9% 250 ML 75 ML IV (09:16)
[2024-09-14] MEDS: famotidine 20 mg/2 mL INJ IVP (09:25)
[2024-09-14] MEDS: palonosetron 0.25 mg/5 mL SDV IVP (09:27)
[2024-09-14] MEDS: paclitaxel protein-bound 230 MG in empty flexible container 1 EACH 92 MG IV (10:02)
[2024-09-14] MEDS: gemcitabine 1,800 MG in sodium chloride 0.9% (100 ml) 100 ML 294.68 MG IV (10:50)
[2024-09-14 11:30] VITALS: BP 124/78; PULSE 74; RESP 18; TEMP 36.6; O2SAT 98
[2024-09-28 08:21] LABS: Basophils % 0.5 %; Eosinophils # 0.1 10^3/uL (0.0-0.8); Eosinophils % 3.1 %; Hematocrit 32.1 % (36-47); Lymphocytes # 0.6 10^3/uL (0.8-4.8); Lymphocytes % 15.6 %; Mean Corpuscular HGB Conc 31.2 g/dL (30-55); Mean Corpuscular Hemoglobin 28.5 pg (27-33); Mean Corpuscular Volume 91.5 fl (85-98); Mean Platelet Volume 10.7 fL (7.4-10.4); Monocytes # 0.4 10^3/uL (0.2-0.9); Monocytes % 10.9 %; Neutrophils # 2.68 10^3/uL (1.8-7.7); Neutrophils % 69.6 %; Nucleated Red Blood Cells % 0 %; Platelet Count 94 10^3/cmm (157-399); Red Blood Count 3.51 10^6/uL (3.85-5.65); Red Cell Distribution Width 15.7 % (12.1-15.1); White Blood Count 3.85 10^3/uL (3.29-11.43)
[2024-09-28 09:04] LABS: Alanine Aminotransferase 18 U/L (0-33); Albumin Level 3.8 g/dL (3.5-5.2); Alkaline Phosphatase 133 U/L (35-105); Aspartate Amino Transferase 19 U/L (0-32); Blood Urea Nitrogen 10 mg/dL (6-20); Calcium 9.1 mg/dL (8.5-10.5); Cancer Antigen 19 9 866.8 U/mL (0-35); Carbon Dioxide 24 mmol/L (22-29); Chloride 106 mmol/L (98-107); Creatinine Clr Calc Pharmacy 114.6055; Globulin 2.2 g/dL (1.3-4.6); Glomerular Filtration Rate 105.4 mL/min (90-130); Glucose 100 mg/dL (65-115); Magnesium 1.8 mg/dL (1.7-2.3); Osmolality Calculated 291 mOsm/kg (285-295); Sodium 141 mmol/L (136-145); Total Bilirubin 0.5 mg/dL (0.15-1.2)
[2024-09-28] MEDS: sodium chloride 0.9% 250 ML 75 ML IV (10:21)
[2024-09-28] MEDS: famotidine 20 mg/2 mL INJ IVP (10:24)
[2024-09-28] MEDS: palonosetron 0.25 mg/5 mL SDV IVP (10:27)
[2024-09-28] MEDS: dexamethasone 4 mg/mL INJ 5 mL 12 MG IVP (10:29)
[2024-09-28] MEDS: paclitaxel protein-bound 230 MG in empty flexible container 1 EACH 92 MG IV (11:33)
[2024-09-28] MEDS: gemcitabine 1,800 MG in sodium chloride 0.9% (100 ml) 100 ML 294.68 MG IV (12:21)
[2024-09-28 13:25] VITALS: BP 97/51; PULSE 91; RESP 16; TEMP 36.5; O2SAT 96
== END 2024-10-04 23:59 | disposition home or self-care (01) ==
PROVIDERS: PCP Nurse Practitioner Family; Visit Provider Internal Medicine
DX: Z53.9 Procedure and treatment not carried out, unspecified reason (principal); Z51.11 Encounter for antineoplastic chemotherapy; C25.9 Malignant neoplasm of pancreas, unspecified; C78.7 Secondary malignant neoplasm of liver and intrahepatic bile duct; Z79.52 Long term (current) use of systemic steroids; Z79.899 Other long term (current) drug therapy
CPT/HCPCS: 36591; 72157; 72158; 80053; 83735; 85025; 86301; 96368; 96375; 96413; 96417; J1100; J2469; J3490; J7050; J9201; J9264

== ENCOUNTER 2024-10-26 08:30 | Oncology outpatient (recurring) (ONCR) | payer BC, SELFPAY ==
[2024-10-12 08:25] LABS: Basophils % 0.7 %; Eosinophils # 0.1 10^3/uL (0.0-0.8); Eosinophils % 2.3 %; Hematocrit 31.5 % (36-47); Lymphocytes # 0.6 10^3/uL (0.8-4.8); Lymphocytes % 20.6 %; Mean Corpuscular HGB Conc 30.8 g/dL (30-55); Mean Corpuscular Hemoglobin 28.3 pg (27-33); Mean Corpuscular Volume 91.8 fl (85-98); Mean Platelet Volume 10.7 fL (7.4-10.4); Monocytes # 0.3 10^3/uL (0.2-0.9); Monocytes % 11.3 %; Neutrophils # 1.95 10^3/uL (1.8-7.7); Neutrophils % 64.8 %; Nucleated Red Blood Cells % 0 %; Platelet Count 66 10^3/cmm (157-399); Red Blood Count 3.43 10^6/uL (3.85-5.65); Red Cell Distribution Width 16.4 % (12.1-15.1); White Blood Count 3.01 10^3/uL (3.29-11.43)
[2024-10-12 08:47] LABS: Alanine Aminotransferase 15 U/L (0-33); Albumin Level 3.9 g/dL (3.5-5.2); Alkaline Phosphatase 104 U/L (35-105); Anion Gap 16.2 (5-19); Aspartate Amino Transferase 18 U/L (0-32); Blood Urea Nitrogen 12 mg/dL (6-20); Calcium 9.2 mg/dL (8.5-10.5); Carbon Dioxide 24 mmol/L (22-29); Chloride 105 mmol/L (98-107); Ferritin 244 ng/mL (15-150); Globulin 2.1 g/dL (1.3-4.6); Glomerular Filtration Rate 130.1 mL/min (90-130); Glucose 107 mg/dL (65-115); Iron 46 ug/dL (37-145); Lactate Dehydrogenase 164 U/L (135-214); Osmolality Calculated 292 mOsm/kg (285-295); Percent Saturation 18.7 % (20-50); Potassium 4.2 mmol/L (3.5-5.1); Sodium 141 mmol/L (136-145); Total Bilirubin 0.5 mg/dL (0.15-1.2); Total Iron Binding Capacity 245 mcg/dl; Unsaturated Iron Binding 199 ug/dL (112-347)
[2024-10-12 09:01] LABS: Vitamin B12 428 pg/mL (232-1245)
[2024-10-12 09:14] LABS: Folate Level 5.9 ng/mL (4.8-37.3)
[2024-10-12] MEDS: sodium chloride 0.9% 250 ML 75 ML IV (10:16)
[2024-10-12] MEDS: dexamethasone 4 mg/mL INJ 5 mL 12 MG IVP (10:17)
[2024-10-12] MEDS: palonosetron 0.25 mg/5 mL SDV IVP (10:19)
[2024-10-12] MEDS: famotidine 20 mg/2 mL INJ IVP (10:21)
[2024-10-12] MEDS: paclitaxel protein-bound 180 MG in empty flexible container 1 EACH 72 MG IV (10:44)
[2024-10-12] MEDS: gemcitabine 1,500 MG in sodium chloride 0.9% (100 ml) 100 ML 278.9 MG IV (11:47)
[2024-10-12 12:29] VITALS: BP 97/47; PULSE 58; RESP 16; TEMP 36.7; O2SAT 95
[2024-10-26 08:36] LABS: Basophils % 0.4 %; Eosinophils # 0.1 10^3/uL (0.0-0.8); Eosinophils % 1.6 %; Hematocrit 33.4 % (36-47); Lymphocytes # 0.6 10^3/uL (0.8-4.8); Lymphocytes % 12.3 %; Mean Corpuscular HGB Conc 31.1 g/dL (30-55); Mean Corpuscular Hemoglobin 28.6 pg (27-33); Mean Corpuscular Volume 91.8 fl (85-98); Mean Platelet Volume 9.8 fL (7.4-10.4); Monocytes # 0.4 10^3/uL (0.2-0.9); Monocytes % 7.3 %; Neutrophils # 3.85 10^3/uL (1.8-7.7); Nucleated Red Blood Cells % 0 %; Platelet Count 67 10^3/cmm (157-399); Red Blood Count 3.64 10^6/uL (3.85-5.65); Red Cell Distribution Width 16.6 % (12.1-15.1); White Blood Count 4.94 10^3/uL (3.29-11.43)
[2024-10-26 08:56] LABS: Alanine Aminotransferase 15 U/L (0-33); Albumin Level 3.9 g/dL (3.5-5.2); Alkaline Phosphatase 106 U/L (35-105); Anion Gap 14.1 (5-19); Aspartate Amino Transferase 18 U/L (0-32); Blood Urea Nitrogen 11 mg/dL (6-20); Carbon Dioxide 25 mmol/L (22-29); Chloride 104 mmol/L (98-107); Creatinine Clr Calc Pharmacy 114.6055; Globulin 2.2 g/dL (1.3-4.6); Glomerular Filtration Rate 105.4 mL/min (90-130); Glucose 120 mg/dL (65-115); Osmolality Calculated 289 mOsm/kg (285-295); Potassium 4.1 mmol/L (3.5-5.1); Sodium 139 mmol/L (136-145); Total Bilirubin 0.8 mg/dL (0.15-1.2); Total Protein 6.1 g/dL (6.6-8.7)
[2024-10-26] MEDS: sodium chloride 0.9% 250 ML 75 ML IV (12:17)
[2024-10-26] MEDS: dexamethasone 4 mg/mL INJ 5 mL 12 MG IVP (12:21)
[2024-10-26] MEDS: palonosetron 0.25 mg/5 mL SDV IVP (12:26)
[2024-10-26] MEDS: famotidine 20 mg/2 mL INJ IVP (12:28)
[2024-10-26] MEDS: paclitaxel protein-bound 180 MG in empty flexible container 1 EACH 72 MG IV (13:08)
[2024-10-26] MEDS: gemcitabine 1,800 MG in sodium chloride 0.9% (100 ml) 100 ML 294.68 MG IV (14:00)
[2024-10-26] MEDS: ferric carboxy (PYXIS) 750 MG in sodium chloride 0.9% (100 ml) 100 ML 345 MG IV (15:09)
[2024-10-26 15:36] VITALS: BP 120/74; PULSE 74; RESP 16; TEMP 36.7; O2SAT 94
== END 2024-11-04 23:59 | disposition home or self-care (01) ==
PROVIDERS: PCP Nurse Practitioner Family; Visit Provider Internal Medicine
DX: Z53.9 Procedure and treatment not carried out, unspecified reason; Z51.11 Encounter for antineoplastic chemotherapy; C25.9 Malignant neoplasm of pancreas, unspecified; C78.7 Secondary malignant neoplasm of liver and intrahepatic bile duct; D50.9 Iron deficiency anemia, unspecified; Z79.52 Long term (current) use of systemic steroids; Z79.633 Long term (current) use of mitotic inhibitor
CPT/HCPCS: 80053; 82607; 82728; 82746; 83010; 83540; 83550; 83615; 85025; 96366; 96375; 96413; 96417; J1100; J1439; J2469; J3490; J7050; J9201; J9264

== ENCOUNTER 2024-11-23 07:45 | Oncology outpatient (recurring) (ONCR) | payer BC, SELFPAY ==
--- NOTE | 2024-11-06 08:00 | NM_ITS ---
WS: [id number] NUCLEAR MEDICINE BONE SCAN Radiopharmaceutical: 26.2 Tc-99m MDP mCi IV Injection site: Antecubital Postinjection imaging delay: 1 hr CLINICAL INFORMATION: pancreatic cancer to the bone COMPARISON: MRI 09/05/2024 FINDINGS: Bone lesions: There are no osseous lesions suspicious for metastatic disease. No evidence of bony uptake to correspond to the lesion seen on the thoracic spine MRI. Soft tissue contours: Normal. Kidneys: Normal. Other findings: Degenerative type uptake both AC joints and both knees. NM/NM bone scan whole body* [id number] IMPRESSION: No evidence of osseous metastatic disease.
--- NOTE | 2024-11-06 13:30 | CTR_ITS ---
PROCEDURE INFORMATION: Exam: CT Chest With Contrast; Diagnostic Exam date and time: 11/06/2024 1:23 PM Age: 53 years old Clinical indication: Condition or disease; Pancreas; Other: Pancreatic cancer; Prior surgery; Surgery date: 6+ months; Surgery type: Port, gb, hernia, hyst TECHNIQUE: Imaging protocol: Diagnostic computed tomography of the chest with contrast. Radiation optimization: All CT scans at this facility use at least one of these dose optimization techniques: automated exposure control; mA and/or kV adjustment per patient size (includes targeted exams where dose is matched to clinical indication); or iterative reconstruction. Contrast material: OMNI 350; Contrast volume: 100 ml; Contrast route: INTRAVENOUS (IV); COMPARISON: PT PET skull to thigh INIT [id number] 08/04/2024 1:34 PM RADIATION DOSE METRICS: Total DLP (mGy-cm): 752.97 FINDINGS: Tubes, catheters and devices: A right-sided VAD is in good position with the catheter tip in the lower SVC. Lungs: Unremarkable. No consolidation. No masses. Pleural spaces: Unremarkable. No pneumothorax. No pleural effusion. Heart: Unremarkable. No cardiomegaly. No pericardial effusion. Lymph nodes: Unremarkable. No enlarged lymph nodes. Vasculature: Unremarkable. No aortic aneurysm. Bones/joints: Unremarkable. No acute fracture. Soft tissues: Unremarkable. PROCEDURE INFORMATION: Exam: CT Abdomen And Pelvis With Contrast Exam date and time: 11/06/2024 1:23 PM Age: 53 years old Clinical indication: Condition or disease; Pancreas; Other: Pancreatic cancer; Prior surgery; Surgery date: 6+ months; Surgery type: Port, gb, hernia, hyst TECHNIQUE: Imaging protocol: Computed tomography of the abdomen and pelvis with contrast. Radiation optimization: All CT scans at this facility use at least one of these dose optimization techniques: automated exposure control; mA and/or kV adjustment per patient size (includes targeted exams where dose is matched to clinical indication); or iterative reconstruction. Contrast material: OMNI 350; Contrast volume: 100 ml; Contrast route: INTRAVENOUS (IV); COMPARISON: CT abdomen pelvis w con* [id number] 08/06/2024 12:26 PM RADIATION DOSE METRICS: Total DLP (mGy-cm): 752.91 FINDINGS: Lungs: Lung bases are clear. No pleural effusion. Liver: There are multiple metastatic masses throughout the liver. Overall, the masses have decreased somewhat in size over the past 3 months. For example, the lesion within the medial segment of the left hepatic lobe has decreased from 6.9 cm down to 4 cm. A mass in the anterior dome of the liver has decreased from 3 cm down to 1.5 cm. Gallbladder and biliary ducts: Normal. No calcified stones. No ductal dilation. Pancreas: There is a 3.5 cm rounded infiltrating, poorly defined mass involving the pancreatic head. There is dilatation of the pancreatic ductal system. Spleen: Prominent splenomegaly is noted. Adrenal glands: Normal. No mass. Kidneys and ureters: Normal. No hydronephrosis. Stomach and bowel: Unremarkable. No obstruction. No mucosal thickening. Appendix: No evidence of appendicitis. Intraperitoneal space: Minimal ascites is noted in the pelvis. Vasculature: The splenic vein is occluded by the pancreatic mass. Lymph nodes: Unremarkable. No enlarged lymph nodes. Urinary bladder: Unremarkable as visualized. Reproductive: Unremarkable as visualized. Bones/joints: Unremarkable. No acute fracture. Soft tissues: Unremarkable. CT/CT chest abdpel w/*[id number] IMPRESSION: There is no evidence of active neoplastic disease. IMPRESSION: The pancreatic mass and liver metastases have all decreased in size over the past 3 months
[2024-11-06] MEDS: iohexol 350 mg/mL 500 mL Btl (per mL) PO (13:33)
[2024-11-06] MEDS: iohexol 350 mg/mL 500 mL Btl (per mL) IV (13:34)
[2024-11-09 08:20] LABS: Basophils % 0.7 %; Eosinophils # 0.1 10^3/uL (0.0-0.8); Eosinophils % 1.8 %; Hematocrit 31.8 % (36-47); Lymphocytes # 0.5 10^3/uL (0.8-4.8); Lymphocytes % 18.8 %; Mean Corpuscular HGB Conc 31.4 g/dL (30-55); Mean Corpuscular Hemoglobin 29.2 pg (27-33); Mean Corpuscular Volume 92.7 fl (85-98); Mean Platelet Volume 10.1 fL (7.4-10.4); Monocytes # 0.2 10^3/uL (0.2-0.9); Monocytes % 8.5 %; Neutrophils # 1.97 10^3/uL (1.8-7.7); Neutrophils % 69.8 %; Nucleated Red Blood Cells % 0 %; Platelet Count 53 10^3/cmm (157-399); Red Blood Count 3.43 10^6/uL (3.85-5.65); Red Cell Distribution Width 16.6 % (12.1-15.1); White Blood Count 2.82 10^3/uL (3.29-11.43)
[2024-11-09 08:45] LABS: Alanine Aminotransferase 20 U/L (0-33); Albumin Level 3.9 g/dL (3.5-5.2); Alkaline Phosphatase 109 U/L (35-105); Aspartate Amino Transferase 21 U/L (0-32); Blood Urea Nitrogen 10 mg/dL (6-20); Calcium 8.9 mg/dL (8.5-10.5); Carbon Dioxide 23 mmol/L (22-29); Chloride 106 mmol/L (98-107); Ferritin 497 ng/mL (15-150); Glomerular Filtration Rate 130.1 mL/min (90-130); Glucose 120 mg/dL (65-115); Iron 48 ug/dL (37-145); Lactate Dehydrogenase 173 U/L (135-214); Osmolality Calculated 288 mOsm/kg (285-295); Percent Saturation 22.2 % (20-50); Sodium 139 mmol/L (136-145); Total Bilirubin 0.6 mg/dL (0.15-1.2); Total Iron Binding Capacity 216 mcg/dl; Total Protein 5.9 g/dL (6.6-8.7); Unsaturated Iron Binding 168 ug/dL (112-347)
[2024-11-09 09:00] LABS: Vitamin B12 452 pg/mL (232-1245)
[2024-11-09 09:12] LABS: Folate Level 6.9 ng/mL (4.8-37.3)
[2024-11-09] MEDS: sodium chloride 0.9% 250 ML 75 ML IV (10:05)
[2024-11-09] MEDS: dexamethasone 4 mg/mL INJ 5 mL 12 MG IVP (10:08)
[2024-11-09] MEDS: palonosetron 0.25 mg/5 mL SDV IVP (10:13)
[2024-11-09] MEDS: famotidine 20 mg/2 mL INJ IVP (10:17)
[2024-11-09] MEDS: paclitaxel protein-bound 180 MG in empty flexible container 1 EACH 72 MG IV (10:57)
[2024-11-09] MEDS: gemcitabine 1,400 MG in sodium chloride 0.9% (100 ml) 100 ML 273.64 MG IV (11:43)
[2024-11-09 12:30] VITALS: BP 94/62; PULSE 60; RESP 16; TEMP 36.6; O2SAT 97
[2024-11-23 07:54] LABS: Basophils % 0.9 %; Eosinophils # 0.1 10^3/uL (0.0-0.8); Eosinophils % 1.7 %; Hematocrit 32.5 % (36-47); Lymphocytes # 0.6 10^3/uL (0.8-4.8); Lymphocytes % 17.5 %; Mean Corpuscular Hemoglobin 29.4 pg (27-33); Mean Corpuscular Volume 91.8 fl (85-98); Mean Platelet Volume 11.2 fL (7.4-10.4); Monocytes # 0.4 10^3/uL (0.2-0.9); Monocytes % 10.9 %; Neutrophils # 2.39 10^3/uL (1.8-7.7); Neutrophils % 68.7 %; Nucleated Red Blood Cells % 0 %; Platelet Count 72 10^3/cmm (157-399); Red Blood Count 3.54 10^6/uL (3.85-5.65); Red Cell Distribution Width 16.9 % (12.1-15.1); White Blood Count 3.48 10^3/uL (3.29-11.43)
[2024-11-23 08:11] LABS: Alanine Aminotransferase 17 U/L (0-33); Albumin Level 3.9 g/dL (3.5-5.2); Alkaline Phosphatase 103 U/L (35-105); Anion Gap 14.3 (5-19); Aspartate Amino Transferase 20 U/L (0-32); Blood Urea Nitrogen 11 mg/dL (6-20); Calcium 9.2 mg/dL (8.5-10.5); Carbon Dioxide 26 mmol/L (22-29); Chloride 105 mmol/L (98-107); Creatinine Clr Calc Pharmacy 114.6055; Globulin 2.1 g/dL (1.3-4.6); Glomerular Filtration Rate 105.4 mL/min (90-130); Glucose 123 mg/dL (65-115); Lactate Dehydrogenase 197 U/L (135-214); Osmolality Calculated 293 mOsm/kg (285-295); Potassium 4.3 mmol/L (3.5-5.1); Sodium 141 mmol/L (136-145); Total Bilirubin 0.7 mg/dL (0.15-1.2)
[2024-11-23] MEDS: sodium chloride 0.9% 250 ML 75 ML IV (10:06)
[2024-11-23] MEDS: dexamethasone 4 mg/mL INJ 5 mL 12 MG IVP (10:07)
[2024-11-23] MEDS: famotidine 20 mg/2 mL INJ IVP (10:13)
[2024-11-23] MEDS: palonosetron 0.25 mg/5 mL SDV IVP (10:14)
[2024-11-23 10:18] LABS: Estmated Average Glucose 103; Hemoglobin A1C 5.2 % (4.0-6.0)
[2024-11-23] MEDS: paclitaxel protein-bound 180 MG in empty flexible container 1 EACH 80 MG IV ×2 (11:16→11:20)
[2024-11-23] MEDS: gemcitabine 1,400 MG in sodium chloride 0.9% (100 ml) 100 ML 273.64 MG IV (12:28)
[2024-11-23] MEDS: ondansetron 2 mg/ML SDV 2 mL 8 MG IVP (12:57)
[2024-11-23 13:30] VITALS: BP 103/51; PULSE 76; RESP 16; TEMP 36.1; O2SAT 99
== END 2024-12-04 23:59 | disposition home or self-care (01) ==
PROVIDERS: Nurse Practitioner; PCP Nurse Practitioner Family; Visit Provider Internal Medicine
DX: Z53.9 Procedure and treatment not carried out, unspecified reason; Z51.11 Encounter for antineoplastic chemotherapy; C25.9 Malignant neoplasm of pancreas, unspecified; C78.7 Secondary malignant neoplasm of liver and intrahepatic bile duct; D50.9 Iron deficiency anemia, unspecified; E11.9 Type 2 diabetes mellitus without complications; Z79.52 Long term (current) use of systemic steroids
CPT/HCPCS: 71260; 74177; 78306; 80053; 82607; 82728; 82746; 83010; 83036; 83540; 83550; 83615; 85025; 96375; 96413; 96417; A9561; J1100; J2405; J2469; J3490; J7050; J9201; J9264

== ENCOUNTER 2025-01-04 07:30 | Oncology outpatient (recurring) (ONCR) | payer BC, SELFPAY ==
[2024-12-07 07:49] LABS: Hematocrit 32.3 % (36-47); Hemoglobin 10.20 g/dL (11.27-16.99); Mean Corpuscular HGB Conc 31.6 g/dL (30-55); Mean Corpuscular Hemoglobin 29.6 pg (27-33); Mean Corpuscular Volume 93.6 fl (85-98); Nucleated Red Blood Cells % 0 %; Platelet Count 71 10^3/cmm (157-399); Red Blood Count 3.45 10^6/uL (3.85-5.65); White Blood Count 3.32 10^3/uL (3.29-11.43)
[2024-12-07 08:06] LABS: Alanine Aminotransferase 22 U/L (0-33); Albumin Level 3.9 g/dL (3.5-5.2); Alkaline Phosphatase 123 U/L (35-105); Anion Gap 18.1 (5-19); Aspartate Amino Transferase 25 U/L (0-32); Blood Urea Nitrogen 11 mg/dL (6-20); Calcium 8.8 mg/dL (8.5-10.5); Carbon Dioxide 24 mmol/L (22-29); Chloride 105 mmol/L (98-107); Creatinine Clr Calc Pharmacy 136.7643; Globulin 2.3 g/dL (1.3-4.6); Glucose 146 mg/dL (65-115); Osmolality Calculated 298 mOsm/kg (285-295); Potassium 4.1 mmol/L (3.5-5.1); Sodium 143 mmol/L (136-145); Total Protein 6.2 g/dL (6.6-8.7)
[2024-12-07 08:47] LABS: Cancer Antigen 19 9 840.4 U/mL (0-35)
[2024-12-07] MEDS: dexamethasone 4 mg/mL INJ 5 mL 12 MG IVP (09:01)
[2024-12-07] MEDS: paclitaxel protein-bound 180 MG in empty flexible container 1 EACH 72 MG IV (09:32)
[2024-12-07] MEDS: gemcitabine 1,400 MG in sodium chloride 0.9% (100 ml) 100 ML 273.64 MG IV (10:28)
[2024-12-07 11:04] VITALS: BP 110/69; PULSE 69; TEMP 36.4
[2024-12-21 07:50] LABS: Hematocrit 32.2 % (36-47); Hemoglobin 10.20 g/dL (11.27-16.99); Mean Corpuscular HGB Conc 31.7 g/dL (30-55); Mean Corpuscular Hemoglobin 29.4 pg (27-33); Mean Corpuscular Volume 92.8 fl (85-98); Nucleated Red Blood Cells % 0 %; Platelet Count 65 10^3/cmm (157-399); Red Blood Count 3.47 10^6/uL (3.85-5.65); White Blood Count 2.84 10^3/uL (3.29-11.43)
[2024-12-21 08:01] LABS: Alanine Aminotransferase 22 U/L (0-33); Albumin Level 3.8 g/dL (3.5-5.2); Alkaline Phosphatase 113 U/L (35-105); Anion Gap 13.9 (5-19); Aspartate Amino Transferase 24 U/L (0-32); Blood Urea Nitrogen 10 mg/dL (6-20); Calcium 8.9 mg/dL (8.5-10.5); Carbon Dioxide 25 mmol/L (22-29); Chloride 106 mmol/L (98-107); Creatinine Clr Calc Pharmacy 114.6055; Globulin 2.1 g/dL (1.3-4.6); Glucose 127 mg/dL (65-115); Magnesium 1.8 mg/dL (1.7-2.3); Osmolality Calculated 293 mOsm/kg (285-295); Potassium 3.9 mmol/L (3.5-5.1); Sodium 141 mmol/L (136-145); Total Protein 5.9 g/dL (6.6-8.7)
[2024-12-21] MEDS: aprepitant 130 mg/18 ml SDV IVP (08:50)
[2024-12-21] MEDS: dexamethasone 4 mg/mL INJ 5 mL 12 MG IVP (09:07)
[2024-12-21] MEDS: paclitaxel protein-bound 180 MG in empty flexible container 1 EACH 72 MG IV (09:49)
[2024-12-21] MEDS: gemcitabine 1,400 MG in sodium chloride 0.9% (100 ml) 100 ML 273.64 MG IV (10:49)
[2024-12-21 11:32] VITALS: BP 96/60; PULSE 62; TEMP 36.8; O2SAT 91
[2025-01-04 07:57] LABS: Hematocrit 31.9 % (36-47); Hemoglobin 10.10 g/dL (11.27-16.99); Mean Corpuscular HGB Conc 31.7 g/dL (30-55); Mean Corpuscular Hemoglobin 29.4 pg (27-33); Mean Corpuscular Volume 92.7 fl (85-98); Nucleated Red Blood Cells % 0 %; Platelet Count 66 10^3/cmm (157-399); Red Blood Count 3.44 10^6/uL (3.85-5.65); White Blood Count 3.92 10^3/uL (3.29-11.43)
[2025-01-04 08:24] LABS: Alanine Aminotransferase 24 U/L (0-33); Albumin Level 3.8 g/dL (3.5-5.2); Alkaline Phosphatase 127 U/L (35-105); Anion Gap 15.1 (5-19); Aspartate Amino Transferase 26 U/L (0-32); Blood Urea Nitrogen 13 mg/dL (6-20); Calcium 8.9 mg/dL (8.5-10.5); Carbon Dioxide 26 mmol/L (22-29); Chloride 105 mmol/L (98-107); Creatinine Clr Calc Pharmacy 113.3178; Globulin 2.1 g/dL (1.3-4.6); Glucose 146 mg/dL (65-115); Osmolality Calculated 297 mOsm/kg (285-295); Potassium 4.1 mmol/L (3.5-5.1); Sodium 142 mmol/L (136-145); Total Protein 5.9 g/dL (6.6-8.7)
[2025-01-04] MEDS: dexamethasone 4 mg/mL INJ 5 mL 12 MG IVP (09:14)
[2025-01-04 10:09] LABS: Cancer Antigen 19 9 1111 U/mL (0-35)
[2025-01-04] MEDS: paclitaxel protein-bound 180 MG in empty flexible container 1 EACH 72 MG IV (10:34)
[2025-01-04] MEDS: gemcitabine 1,400 MG in sodium chloride 0.9% (100 ml) 100 ML 273.64 MG IV (11:17)
[2025-01-04 12:03] VITALS: BP 96/62; PULSE 84; RESP 16; TEMP 36.3; O2SAT 94
== END 2025-01-04 23:59 | disposition home or self-care (01) ==
PROVIDERS: Internal Medicine; Nurse Practitioner Family; PCP Nurse Practitioner Family; Visit Provider Internal Medicine
DX: Z53.9 Procedure and treatment not carried out, unspecified reason; Z51.11 Encounter for antineoplastic chemotherapy; C25.9 Malignant neoplasm of pancreas, unspecified; C78.7 Secondary malignant neoplasm of liver and intrahepatic bile duct; Z79.899 Other long term (current) drug therapy; Z79.52 Long term (current) use of systemic steroids
CPT/HCPCS: 36415; 80053; 83735; 85025; 86301; 96367; 96375; 96413; 96417; J0185; J1100; J1453; J2469; J3490; J7050; J9201; J9264

== ENCOUNTER 2025-02-01 08:00 | Oncology outpatient (recurring) (ONCR) | payer BC, MEDICAID, SELFPAY ==
[2025-01-18 08:45] LABS: Hematocrit 32.5 % (36-47); Hemoglobin 10.50 g/dL (11.27-16.99); Mean Corpuscular HGB Conc 32.3 g/dL (30-55); Mean Corpuscular Hemoglobin 29.5 pg (27-33); Mean Corpuscular Volume 91.3 fl (85-98); Nucleated Red Blood Cells % 0 %; Platelet Count 79 10^3/cmm (157-399); Red Blood Count 3.56 10^6/uL (3.85-5.65); White Blood Count 3.74 10^3/uL (3.29-11.43)
[2025-01-18 08:55] LABS: Alanine Aminotransferase 21 U/L (0-33); Albumin Level 4.0 g/dL (3.5-5.2); Alkaline Phosphatase 130 U/L (35-105); Anion Gap 13.2 (5-19); Aspartate Amino Transferase 27 U/L (0-32); Blood Urea Nitrogen 9 mg/dL (6-20); Calcium 9.1 mg/dL (8.5-10.5); Carbon Dioxide 26 mmol/L (22-29); Chloride 106 mmol/L (98-107); Creatinine Clr Calc Pharmacy 135.2276; Globulin 2.3 g/dL (1.3-4.6); Glucose 145 mg/dL (65-115); Osmolality Calculated 293 mOsm/kg (285-295); Potassium 4.2 mmol/L (3.5-5.1); Sodium 141 mmol/L (136-145); Total Protein 6.3 g/dL (6.6-8.7)
[2025-01-18 09:59] VITALS: BP 101/65; PULSE 70; TEMP 36.6; O2SAT 97
[2025-01-18] MEDS: dexamethasone 4 mg/mL INJ 5 mL 12 MG IVP (10:29)
[2025-01-18] MEDS: paclitaxel protein-bound 180 MG in empty flexible container 1 EACH 72 MG IV (12:29)
[2025-01-18] MEDS: gemcitabine 1,400 MG in sodium chloride 0.9% (100 ml) 100 ML 273.64 MG IV (13:15)
[2025-01-18 14:15] VITALS: BP 110/75; PULSE 66; RESP 16; TEMP 36; O2SAT 95
[2025-02-01 08:27] LABS: Hematocrit 32.6 % (36-47); Hemoglobin 10.40 g/dL (11.27-16.99); Mean Corpuscular HGB Conc 31.9 g/dL (30-55); Mean Corpuscular Hemoglobin 29.1 pg (27-33); Mean Corpuscular Volume 91.1 fl (85-98); Nucleated Red Blood Cells % 0 %; Platelet Count 64 10^3/cmm (157-399); Red Blood Count 3.58 10^6/uL (3.85-5.65); White Blood Count 2.71 10^3/uL (3.29-11.43)
[2025-02-01 08:48] LABS: Alanine Aminotransferase 25 U/L (0-33); Albumin Level 3.8 g/dL (3.5-5.2); Alkaline Phosphatase 152 U/L (35-105); Anion Gap 13.0 (5-19); Aspartate Amino Transferase 28 U/L (0-32); Blood Urea Nitrogen 6 mg/dL (6-20); Calcium 9.1 mg/dL (8.5-10.5); Carbon Dioxide 26 mmol/L (22-29); Chloride 106 mmol/L (98-107); Creatinine Clr Calc Pharmacy 134.8503; Globulin 2.2 g/dL (1.3-4.6); Glucose 150 mg/dL (65-115); Osmolality Calculated 292 mOsm/kg (285-295); Potassium 4.0 mmol/L (3.5-5.1); Sodium 141 mmol/L (136-145); Total Protein 6.0 g/dL (6.6-8.7)
== END 2025-02-04 23:59 | disposition home or self-care (01) ==
PROVIDERS: Nurse Practitioner Family; PCP Nurse Practitioner Family; Visit Provider Internal Medicine
DX: C78.7 Secondary malignant neoplasm of liver and intrahepatic bile duct; C25.9 Malignant neoplasm of pancreas, unspecified; Z53.9 Procedure and treatment not carried out, unspecified reason
CPT/HCPCS: 80053; 85025; 96367; 96375; 96413; 96417; 99213; J1100; J1453; J2469; J3490; J7050; J9201; J9264

== ENCOUNTER 2025-02-22 09:00 | Oncology outpatient (recurring) (ONCR) | payer BC, MEDICAID, SELFPAY ==
--- NOTE | 2025-02-08 13:30 | CTR_ITS ---
PROCEDURE INFORMATION: Exam: CT Chest With Contrast; Diagnostic Exam date and time: 02/08/2025 2:00 PM Age: 54 years old Clinical indication: Condition or disease; Pancreas; Other: Pancreatic cancer metastasized to liver, prior surgery; Surgery date: 6+ months; Surgery type: Port, gb, hernia, hyst TECHNIQUE: Imaging protocol: Diagnostic computed tomography of the chest with contrast. Radiation optimization: All CT scans at this facility use at least one of these dose optimization techniques: automated exposure control; mA and/or kV adjustment per patient size (includes targeted exams where dose is matched to clinical indication); or iterative reconstruction. Contrast material: OMNI 350; Contrast volume: 100 ml; Contrast route: INTRAVENOUS (IV); COMPARISON: CT chest abdpel w/*[id number] 11/06/2024 1:23 PM RADIATION DOSE METRICS: Total DLP (mGy-cm): 743.05 FINDINGS: Tubes, catheters and devices: There is a right chest port with the line tip appropriately positioned in the lower SVC near the cavoatrial junction. Lungs: There is subsegmental atelectasis in the lung bases. There is no consolidation. No suspicious pulmonary nodule. Pleural spaces: There is no pleural effusion or pneumothorax. Heart: Heart size is normal. There is no pericardial effusion. Lymph nodes: There is no mediastinal or hilar lymphadenopathy. Vasculature: There is mild aortic atherosclerotic disease. Central pulmonary arteries are unremarkable. Bones/joints: Bones are unremarkable. Soft tissues: The extrathoracic soft tissues are unremarkable. PROCEDURE INFORMATION: Exam: CT Abdomen And Pelvis With Contrast Exam date and time: 02/08/2025 2:00 PM Age: 54 years old Clinical indication: Condition or disease; Pancreas; Other: Pancreatic cancer metastasized to liver, prior surgery; Surgery date: 6+ months; Surgery type: Port, gb, hernia, hyst TECHNIQUE: Imaging protocol: Computed tomography of the abdomen and pelvis with contrast. Radiation optimization: All CT scans at this facility use at least one of these dose optimization techniques: automated exposure control; mA and/or kV adjustment per patient size (includes targeted exams where dose is matched to clinical indication); or iterative reconstruction. Contrast material: OMNI 350; Contrast volume: 100 ml; Contrast route: INTRAVENOUS (IV); COMPARISON: PT PET skull to thigh INIT [id number] 08/04/2024 1:34 PM RADIATION DOSE METRICS: Total DLP (mGy-cm): 743.05 FINDINGS: Lungs: Lung bases are clear. Liver: There are numerous scattered ill-defined hypodense foci in the liver parenchyma, the largest of which is in the posterosuperior right lobe and demonstrates central necrosis, measuring 2.9 x 2.4 cm overall, compared to 4.5 x 4.2 cm on 11/06/2024. Additional masses in the right and left lobes are decreased in size since 11/06/2024. Gallbladder and biliary ducts: The gallbladder is absent. There is no intrahepatic or extrahepatic bile duct dilation. Pancreas: Hypoenhancing mass in the pancreatic neck and head measures 3.5 x 2.4 x 2.3 cm compared to 4.7 x 4.5 x 3.3 cm on 11/06/2024. There is distal pancreatic atrophy and distal pancreatic duct dilation, similar to the prior. Spleen: The spleen is moderately enlarged. Spleen measures 18 cm in length, increased from 16 cm on 11/06/2024. No focal splenic abnormality. Adrenal glands: The adrenal glands are unremarkable. Kidneys and ureters: The kidneys are unremarkable. No hydronephrosis or stones. No ureteral dilation. Stomach and bowel: The stomach is unremarkable. The small bowel is nondilated. The colon is unremarkable. Appendix: The appendix is normal. Intraperitoneal space: Small volume simple free fluid in the deep pelvis. No intraperitoneal free air. Vasculature: There are moderate gastric, paraesophageal, arnold hepatis, and right upper quadrant mesenteric varices. There is mild aortic atherosclerotic disease. The left common and external iliac veins are very small suggesting chronic thrombosis. The portal vein is patent. The superior mesenteric and splenic veins are occluded at the level of the pancreatic mass. Moderate gastric, para esophageal, arnold hepatis, right upper quadrant mesenteric and left splenorenal varices. Lymph nodes: There is no lymphadenopathy in the retroperitoneum, mesentery, pelvis or inguinal regions. Urinary bladder: The urinary bladder is nondistended, limiting assessment of wall thickness. Reproductive: The uterus is absent. There is no adnexal mass or large cyst. Bones/joints: Bones are unremarkable. Soft tissues: The abdominal wall is intact. CT/CT chest abdpel w/*[id number] IMPRESSION: No sign of metastases in the thorax. IMPRESSION: 1. Decreased size of pancreatic mass since 11/06/2024. 2. Diffusely decreased size of liver metastases since 11/06/2024. 3. Progressive splenic enlargement since 11/06/2024. 4. 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 COMMENTS: Consistent with the [employer]'s Incidental Findings Committee white paper (J Am Luisa Radiol 2018): Any incidental renal lesion less than 1 cm or classified as too small to characterize, or any incidental cystic renal lesion characterized as simple-appearing, is likely benign. No follow-up imaging is recommended for these lesions per consensus recommendations based on imaging criteria.
[2025-02-08] MEDS: iohexol 350 mg/mL 500 mL Btl (per mL) PO (14:10)
[2025-02-08] MEDS: iohexol 350 mg/mL 500 mL Btl (per mL) IV (14:10)
[2025-02-22 09:07] LABS: Hematocrit 37.0 % (36-47); Hemoglobin 12.00 g/dL (11.27-16.99); Mean Corpuscular HGB Conc 32.4 g/dL (30-55); Mean Corpuscular Hemoglobin 29.2 pg (27-33); Mean Corpuscular Volume 90.0 fl (85-98); Nucleated Red Blood Cells % 0 %; Platelet Count 74 10^3/cmm (157-399); Red Blood Count 4.11 10^6/uL (3.85-5.65); White Blood Count 6.77 10^3/uL (3.29-11.43)
[2025-02-22 09:43] LABS: Alanine Aminotransferase 40 U/L (0-33); Albumin Level 3.6 g/dL (3.5-5.2); Alkaline Phosphatase 283 U/L (35-105); Anion Gap 13.3 (5-19); Aspartate Amino Transferase 43 U/L (0-32); Blood Urea Nitrogen 11 mg/dL (6-20); Calcium 8.9 mg/dL (8.5-10.5); Carbon Dioxide 28 mmol/L (22-29); Chloride 103 mmol/L (98-107); Creatinine Clr Calc Pharmacy 168.7104; Ferritin 698 ng/mL (15-150); Globulin 2.5 g/dL (1.3-4.6); Glucose 179 mg/dL (65-115); Iron 37 ug/dL (37-145); Osmolality Calculated 294 mOsm/kg (285-295); Potassium 4.3 mmol/L (3.5-5.1); Sodium 140 mmol/L (136-145); Total Iron Binding Capacity 197 mcg/dl; Total Protein 6.1 g/dL (6.6-8.7); Unsaturated Iron Binding 160 ug/dL (112-347); Vitamin B12 907 pg/mL (232-1245)
[2025-02-22 10:03] LABS: Cancer Antigen 19 9 4390 U/mL (0-35)
[2025-02-22] MEDS: dexamethasone 4 mg/mL INJ 5 mL 12 MG IVP (11:11)
[2025-02-22] MEDS: paclitaxel protein-bound 180 MG in empty flexible container 1 EACH 72 MG IV (12:16)
[2025-02-22] MEDS: gemcitabine 1,400 MG in sodium chloride 0.9% (100 ml) 100 ML 273.64 MG IV (13:01)
[2025-02-22 13:44] VITALS: BP 112/50; PULSE 55; RESP 16; TEMP 36.9; O2SAT 97
== END 2025-03-06 23:59 | disposition home or self-care (01) ==
PROVIDERS: Internal Medicine; PCP Nurse Practitioner Family; Visit Provider Internal Medicine
DX: Z53.9 Procedure and treatment not carried out, unspecified reason; Z51.11 Encounter for antineoplastic chemotherapy; C25.9 Malignant neoplasm of pancreas, unspecified; C78.7 Secondary malignant neoplasm of liver and intrahepatic bile duct; D50.9 Iron deficiency anemia, unspecified
CPT/HCPCS: 71260; 74177; 80053; 82607; 82728; 82746; 83010; 83540; 83550; 83615; 85025; 86301; 96375; 96413; 96415; J1100; J1453; J2469; J3490; J7050; J9201; J9264

== ENCOUNTER 2025-03-22 08:30 | Oncology outpatient (recurring) (ONCR) | payer BC, MEDICAID, SELFPAY ==
[2025-03-08 08:55] LABS: Hematocrit 35.2 % (36-47); Hemoglobin 11.10 g/dL (11.27-16.99); Mean Corpuscular HGB Conc 31.5 g/dL (30-55); Mean Corpuscular Hemoglobin 28.6 pg (27-33); Mean Corpuscular Volume 90.7 fl (85-98); Nucleated Red Blood Cells % 0 %; Platelet Count 140 10^3/cmm (157-399); Red Blood Count 3.88 10^6/uL (3.85-5.65); White Blood Count 5.46 10^3/uL (3.29-11.43)
[2025-03-08 09:02] VITALS: BP 120/81; PULSE 86; RESP 18; TEMP 36.6; O2SAT 97
[2025-03-08 09:22] LABS: Alanine Aminotransferase 33 U/L (0-33); Albumin Level 3.5 g/dL (3.5-5.2); Alkaline Phosphatase 384 U/L (35-105); Anion Gap 13.1 (5-19); Aspartate Amino Transferase 33 U/L (0-32); Blood Urea Nitrogen 7 mg/dL (6-20); Calcium 8.8 mg/dL (8.5-10.5); Carbon Dioxide 28 mmol/L (22-29); Chloride 103 mmol/L (98-107); Creatinine Clr Calc Pharmacy 172.3330; Globulin 2.6 g/dL (1.3-4.6); Glucose 200 mg/dL (65-115); Osmolality Calculated 294 mOsm/kg (285-295); Potassium 4.1 mmol/L (3.5-5.1); Sodium 140 mmol/L (136-145); Total Protein 6.1 g/dL (6.6-8.7)
[2025-03-08 09:43] LABS: Cancer Antigen 19 9 5706 U/mL (0-35)
[2025-03-08] MEDS: dexamethasone 4 mg/mL INJ 5 mL 12 MG IVP (10:37)
[2025-03-08] MEDS: paclitaxel protein-bound 180 MG in empty flexible container 1 EACH 72 MG IV (11:21)
[2025-03-08] MEDS: gemcitabine 1,400 MG in sodium chloride 0.9% (100 ml) 100 ML 273.64 MG IV (12:14)
[2025-03-08 13:10] VITALS: BP 110/60; PULSE 66; RESP 16; TEMP 37.1; O2SAT 97
--- NOTE | 2025-03-15 12:15 | XRR_ITS ---
PROCEDURE INFORMATION: Exam: XR Abdomen Exam date and time: 03/15/2025 12:20 PM Age: 54 years old Clinical indication: Bloating and constipation and vomiting; Prior surgery; Surgery date: 6+ months; Surgery type: Gallbladder, tubal, port; Additional info: Constipation, bloating vomiting TECHNIQUE: Imaging protocol: Radiologic exam of the abdomen. Views: 2 Views. Upright and supine views. COMPARISON: CR XR KUB [id number] 08/06/2024 11:35 AM FINDINGS: Tubes, catheters and devices: Right-sided port a catheter terminates in the superior vena cava. Surgical clips are seen in the right upper quadrant. Lungs: Linear atelectasis at the left base and right lower lung. Gastrointestinal tract: Mildly dilated gas-filled small bowel loops are noted in the central abdomen with air-fluid levels on the upright view. Bones/joints: Unremarkable for age. XR/XR acute abdomen series [id number] IMPRESSION: Findings consistent with small bowel obstruction.
[2025-03-15] MEDS: methylnaltrexone 12 /0.6 mL INJ 12 MG SUBCUT (13:13)
[2025-03-15 13:38] LABS: Hematocrit 31.7 % (36-47); Hemoglobin 10.30 g/dL (11.27-16.99); Mean Corpuscular HGB Conc 32.5 g/dL (30-55); Mean Corpuscular Hemoglobin 29.1 pg (27-33); Mean Corpuscular Volume 89.5 fl (85-98); Nucleated Red Blood Cells % 0.6 %; Platelet Count 74 10^3/cmm (157-399); Red Blood Count 3.54 10^6/uL (3.85-5.65); White Blood Count 3.22 10^3/uL (3.29-11.43)
[2025-03-15 14:04] LABS: Alanine Aminotransferase 50 U/L (0-33); Albumin Level 3.4 g/dL (3.5-5.2); Alkaline Phosphatase 344 U/L (35-105); Anion Gap 14.3 (5-19); Aspartate Amino Transferase 41 U/L (0-32); Blood Urea Nitrogen 6 mg/dL (6-20); Calcium 8.5 mg/dL (8.5-10.5); Carbon Dioxide 25 mmol/L (22-29); Chloride 105 mmol/L (98-107); Creatinine Clr Calc Pharmacy 170.9190; Globulin 2.5 g/dL (1.3-4.6); Glucose 176 mg/dL (65-115); Magnesium 1.7 mg/dL (1.7-2.3); Osmolality Calculated 292 mOsm/kg (285-295); Potassium 4.3 mmol/L (3.5-5.1); Sodium 140 mmol/L (136-145); Total Protein 5.9 g/dL (6.6-8.7)
[2025-03-16 08:02] VITALS: BP 98/66; PULSE 61; RESP 16; TEMP 36.5; O2SAT 96
[2025-03-16 09:28] VITALS: BP 113/77; PULSE 66; RESP 16; TEMP 36.6; O2SAT 99
[2025-03-22 08:47] LABS: Hematocrit 36.4 % (36-47); Hemoglobin 11.70 g/dL (11.27-16.99); Mean Corpuscular HGB Conc 32.1 g/dL (30-55); Mean Corpuscular Hemoglobin 28.5 pg (27-33); Mean Corpuscular Volume 88.8 fl (85-98); Nucleated Red Blood Cells % 0 %; Platelet Count 81 10^3/cmm (157-399); Red Blood Count 4.10 10^6/uL (3.85-5.65); White Blood Count 7.11 10^3/uL (3.29-11.43)
[2025-03-22 09:07] LABS: Alanine Aminotransferase 33 U/L (0-33); Albumin Level 3.7 g/dL (3.5-5.2); Alkaline Phosphatase 348 U/L (35-105); Anion Gap 16.3 (5-19); Aspartate Amino Transferase 33 U/L (0-32); Blood Urea Nitrogen 5 mg/dL (6-20); Calcium 9.0 mg/dL (8.5-10.5); Carbon Dioxide 26 mmol/L (22-29); Chloride 99 mmol/L (98-107); Creatinine Clr Calc Pharmacy 170.1243; Globulin 2.4 g/dL (1.3-4.6); Glucose 257 mg/dL (65-115); Osmolality Calculated 290 mOsm/kg (285-295); Potassium 4.3 mmol/L (3.5-5.1); Sodium 137 mmol/L (136-145); Total Protein 6.1 g/dL (6.6-8.7)
[2025-03-22 10:16] LABS: Cancer Antigen 19 9 6030 U/mL (0-35)
[2025-03-22 10:30] LABS: Estmated Average Glucose 160; Hemoglobin A1C 7.2 % (4.0-6.0)
[2025-03-22] MEDS: dexamethasone 4 mg/mL INJ 5 mL 12 MG IVP (10:50)
[2025-03-22] MEDS: paclitaxel protein-bound 180 MG in empty flexible container 1 EACH 72 MG IV (12:08)
[2025-03-22] MEDS: gemcitabine 1,400 MG in sodium chloride 0.9% (100 ml) 100 ML 273.64 MG IV (13:04)
[2025-03-22] MEDS: methylnaltrexone 12 /0.6 mL INJ 12 MG SUBCUT (13:48)
== END 2025-03-22 23:59 | disposition home or self-care (01) ==
PROVIDERS: PCP Nurse Practitioner Family; Visit Provider Nurse Practitioner
DX: Z51.11 Encounter for antineoplastic chemotherapy; C25.9 Malignant neoplasm of pancreas, unspecified; C78.7 Secondary malignant neoplasm of liver and intrahepatic bile duct; E11.9 Type 2 diabetes mellitus without complications; Z79.899 Other long term (current) drug therapy; Z53.9 Procedure and treatment not carried out, unspecified reason
CPT/HCPCS: 74022; 80053; 83036; 83615; 83735; 85025; 86301; 96360; 96365; 96366; 96367; 96372; 96375; 96377; 96413; 96417; J1100; J1453; J2212; J2469; J3490; J7030; J7050; J9201; J9264; J9999

== ENCOUNTER 2025-04-05 08:26 | Oncology outpatient (recurring) (ONCR) | payer BC, MEDICAID, SELFPAY ==
[2025-04-05 08:56] LABS: Hematocrit 35.1 % (36-47); Hemoglobin 11.10 g/dL (11.27-16.99); Mean Corpuscular HGB Conc 31.6 g/dL (30-55); Mean Corpuscular Hemoglobin 28.0 pg (27-33); Mean Corpuscular Volume 88.6 fl (85-98); Nucleated Red Blood Cells % 0 %; Platelet Count 107 10^3/cmm (157-399); Red Blood Count 3.96 10^6/uL (3.85-5.65); White Blood Count 5.59 10^3/uL (3.29-11.43)
[2025-04-05 09:15] LABS: Alanine Aminotransferase 29 U/L (0-33); Albumin Level 3.4 g/dL (3.5-5.2); Alkaline Phosphatase 378 U/L (35-105); Anion Gap 16.3 (5-19); Aspartate Amino Transferase 31 U/L (0-32); Blood Urea Nitrogen 7 mg/dL (6-20); Calcium 8.5 mg/dL (8.5-10.5); Carbon Dioxide 25 mmol/L (22-29); Chloride 100 mmol/L (98-107); Creatinine Clr Calc Pharmacy 174.2175; Globulin 2.3 g/dL (1.3-4.6); Glucose 267 mg/dL (65-115); Osmolality Calculated 291 mOsm/kg (285-295); Potassium 4.3 mmol/L (3.5-5.1); Sodium 137 mmol/L (136-145); Total Protein 5.7 g/dL (6.6-8.7)
[2025-04-05] MEDS: dexamethasone 4 mg/mL INJ 5 mL 12 MG IVP (10:04)
[2025-04-05] MEDS: paclitaxel protein-bound 180 MG in empty flexible container 1 EACH 72 MG IV (11:04)
[2025-04-05] MEDS: gemcitabine 1,400 MG in sodium chloride 0.9% (100 ml) 100 ML 273.64 MG IV (11:50)
[2025-04-05 12:42] VITALS: BP 112/70; PULSE 70; RESP 17; TEMP 36.1; O2SAT 96
== END 2025-04-06 23:59 | disposition home or self-care (01) ==
PROVIDERS: PCP Nurse Practitioner Family; Visit Provider Nurse Practitioner
DX: Z51.11 Encounter for antineoplastic chemotherapy (principal); C25.9 Malignant neoplasm of pancreas, unspecified; C78.7 Secondary malignant neoplasm of liver and intrahepatic bile duct; Z79.899 Other long term (current) drug therapy; Z79.52 Long term (current) use of systemic steroids
CPT/HCPCS: 80053; 85025; 96367; 96375; 96411; 96413; 96417; J1100; J2469; J3490; J7050; J9201; J9264

== ENCOUNTER 2025-04-20 08:53 | Outpatient (CLI) | payer BC, MEDICAID, SELFPAY ==
[2025-04-20] MEDS: iohexol 350 mg/mL 500 mL Btl (per mL) IV (09:13)
[2025-04-20] MEDS: iohexol 350 mg/mL 500 mL Btl (per mL) PO (09:13)
--- NOTE | 2025-04-20 14:30 | CTR_ITS ---
PROCEDURE INFORMATION: Exam: CT Chest With Contrast; Diagnostic Exam date and time: 04/20/2025 9:38 AM Age: 54 years old Clinical indication: Condition or disease; Other: Pancreatic cancer; Prior surgery; Surgery date: 6+ months; Surgery type: Port, hernia, gb, hyst, c section TECHNIQUE: Imaging protocol: Diagnostic computed tomography of the chest with contrast. Radiation optimization: All CT scans at this facility use at least one of these dose optimization techniques: automated exposure control; mA and/or kV adjustment per patient size (includes targeted exams where dose is matched to clinical indication); or iterative reconstruction. Contrast material: OMNI 350; Contrast volume: 100 ml; Contrast route: INTRAVENOUS (IV); COMPARISON: CT chest abdpel w/*[id number] 02/08/2025 2:00 PM RADIATION DOSE METRICS: Total DLP (mGy-cm): 1037.87 FINDINGS: Tubes, catheters and devices: A MediPort catheter is placed via the right internal jugular vein with its tip at the superior cavoatrial junction. Lungs: A few strandy opacities are seen in the lung bases bilaterally likely representing atelectasis. Pleural spaces: Unremarkable. No pneumothorax. No pleural effusion. Heart: Unremarkable. No cardiomegaly. No pericardial effusion. Lymph nodes: Unremarkable. No enlarged lymph nodes. Vasculature: Unremarkable. No aortic aneurysm. Bones/joints: Unremarkable. No acute fracture. Soft tissues: Unremarkable. PROCEDURE INFORMATION: Exam: CT Abdomen And Pelvis With Contrast Exam date and time: 04/20/2025 9:38 AM Age: 54 years old Clinical indication: Condition or disease; Other: Pancreatic cancer; Prior surgery; Surgery date: 6+ months; Surgery type: Port, hernia, gb, hyst, c section TECHNIQUE: Imaging protocol: Computed tomography of the abdomen and pelvis with contrast. Radiation optimization: All CT scans at this facility use at least one of these dose optimization techniques: automated exposure control; mA and/or kV adjustment per patient size (includes targeted exams where dose is matched to clinical indication); or iterative reconstruction. Contrast material: OMNI 350; Contrast volume: 100 ml; Contrast route: INTRAVENOUS (IV); COMPARISON: PT PET skull to thigh INIT [id number] 08/04/2024 1:34 PM RADIATION DOSE METRICS: Total DLP (mGy-cm): 1037.87 FINDINGS: Liver: There are numerous variable sized irregular predominantly peripherally enhancing metastatic lesions within the hepatic parenchyma. The metastatic lesions seen on 02/08/2025 appear larger today. An irregular mass present in the posterior aspect of the hepatic dome that likely represents confluent metastatic lesions previously measured 5.1 x 8.1 cm on 02/08/2025 today measures 7.0 x 9.0 cm. An irregular lesion in the lateral aspect of the right hepatic lobe previously measured 6.4 cm AP dimension, today measures 7.1 cm. A metastatic lesion within the left hepatic lobe previously measured 1.8 cm, today it measures 2.6 cm. The largest lesion in the left hepatic lobe previously measured 3.4 x 5.4 cm, today it measures 4.5 x 6.9 cm. Gallbladder and biliary ducts: Status post cholecystectomy. Pancreas: The known pancreatic mass today now measures 3.5 x 3.5 x 3.7 cm within the pancreatic head an increase in size compared with 02/08/2025. Spleen: The spleen is prominent but stable measuring 17.4 cm craniocaudal dimension. Adrenal glands: Normal. No mass. Kidneys and ureters: Normal. No hydronephrosis. Stomach and bowel: See Vasculature finding. Appendix: No evidence of appendicitis. Intraperitoneal space: There is moderate ascites present today, a new finding compared with 02/08/2025.. There is prominent dilatation of the main pancreatic duct within the pancreatic neck and tail. Vasculature: There is low-attenuation thrombus present within the proximal main portal vein. There are gastroesophageal and splenorenal varices present. Numerous mesenteric portal venous collaterals are seen convening around the pancreatic head mass. Lymph nodes: Unremarkable. No enlarged lymph nodes. Urinary bladder: Unremarkable as visualized. Reproductive: Unremarkable as visualized. Bones/joints: Unremarkable. No acute fracture. Soft tissues: Unremarkable. CT/CT chest abdpel w/*[id number] IMPRESSION: There are no acute chest findings. There is no evidence for metastatic disease or lymphadenopathy. IMPRESSION: 1. Worsening hepatic metastatic lesions as described above. 2. Enlarging pancreatic head mass 3. Thrombus present within the proximal main portal vein with numerous portosystemic and portal venous collaterals seen. 4. New moderate ascites 5. Stable splenomegaly
== END 2025-04-20 08:54 | disposition home or self-care (01) ==
PROVIDERS: PCP Nurse Practitioner Family; Visit Provider Internal Medicine Medical Oncology
DX: C25.9 Malignant neoplasm of pancreas, unspecified (principal); C78.7 Secondary malignant neoplasm of liver and intrahepatic bile duct; J98.4 Other disorders of lung; Z90.49 Acquired absence of other specified parts of digestive tract; R18.8 Other ascites; I81 Portal vein thrombosis
CPT/HCPCS: 71260; 74177

== ENCOUNTER 2025-04-20 09:15 | Oncology outpatient (recurring) (ONCR) | payer BC, MEDICAID, SELFPAY ==
[2025-04-19 08:49] LABS: Hematocrit 35.3 % (36-47); Hemoglobin 11.10 g/dL (11.27-16.99); Mean Corpuscular HGB Conc 31.4 g/dL (30-55); Mean Corpuscular Hemoglobin 28.0 pg (27-33); Mean Corpuscular Volume 88.9 fl (85-98); Nucleated Red Blood Cells % 0 %; Platelet Count 112 10^3/cmm (157-399); Red Blood Count 3.97 10^6/uL (3.85-5.65); White Blood Count 7.46 10^3/uL (3.29-11.43)
[2025-04-19 09:04] LABS: Slide Review Slide Review Perform
[2025-04-19 09:17] LABS: Alanine Aminotransferase 26 U/L (0-33); Albumin Level 3.2 g/dL (3.5-5.2); Alkaline Phosphatase 348 U/L (35-105); Anion Gap 16.0 (5-19); Aspartate Amino Transferase 33 U/L (0-32); Blood Urea Nitrogen 8 mg/dL (6-20); Calcium 8.6 mg/dL (8.5-10.5); Carbon Dioxide 25 mmol/L (22-29); Chloride 103 mmol/L (98-107); Globulin 2.4 g/dL (1.3-4.6); Glucose 228 mg/dL (65-115); Osmolality Calculated 296 mOsm/kg (285-295); Potassium 4.0 mmol/L (3.5-5.1); Sodium 140 mmol/L (136-145); Total Protein 5.6 g/dL (6.6-8.7)
== END 2025-05-06 23:59 | disposition home or self-care (01) ==
PROVIDERS: PCP Nurse Practitioner Family; Visit Provider Nurse Practitioner
DX: Z53.9 Procedure and treatment not carried out, unspecified reason; Z45.2 Encounter for adjustment and management of vascular access device
CPT/HCPCS: 80053; 85025

== ENCOUNTER 2025-04-23 08:27 | Outpatient (CLI) | payer BC, MEDICAID, SELFPAY ==
--- NOTE | 2025-04-23 08:45 | NM_ITS ---
WS: [id number] NUCLEAR MEDICINE BONE SCAN Radiopharmaceutical: 26.5 Tc-99m MDP mCi IV Injection site: Antecubital Postinjection imaging delay: 1 hr CLINICAL INFORMATION: pancreatic cancer COMPARISON: Bone scan 11/06/2024 FINDINGS: Bone lesions: There are no osseous lesions suspicious for metastatic disease. Soft tissue contours: Normal. Kidneys: Normal. Other findings: Degenerative type uptake both AC joints and both knees. NM/NM bone scan whole body* [id number] IMPRESSION: No evidence of osseous metastatic disease.
== END 2025-04-23 08:28 | disposition home or self-care (01) ==
LOC: RAD 08:28
PROVIDERS: PCP Nurse Practitioner Family; Visit Provider Internal Medicine Medical Oncology
DX: C25.9 Malignant neoplasm of pancreas, unspecified (principal); C78.7 Secondary malignant neoplasm of liver and intrahepatic bile duct; M17.0 Bilateral primary osteoarthritis of knee
CPT/HCPCS: 78306; A9561

== ENCOUNTER 2025-05-08 11:13 | Day surgery (SDC) | payer BC, MEDICAID, SELFPAY ==
--- NOTE | 2025-05-08 11:27 | US_ITS ---
WS: [id number] ULTRASOUND-GUIDED THERAPEUTIC PARACENTESIS Procedure, risks, and complications have been explained to the patient. Consent is obtained. Utilizing aseptic technique and 1% buffered lidocaine, a small dermatome was made through which a 5 Stateless Yueh catheter was inserted. Approximately 5425 ml of clear peritoneal fluid was obtained without difficulty. No complications encountered. US/US paracentesis abd w [id number] IMPRESSION: Uncomplicated paracentesis yielding 5425 ml of peritoneal fluid.
[2025-05-08 11:44] VITALS: BP 131/77; PULSE 86; RESP 18; TEMP 36.5; O2SAT 94; BMI 28.1
[2025-05-08 13:02] VITALS: BP 106/63
[2025-05-08 13:05] VITALS: BP 113/70
--- NOTE | 2025-05-08 13:28 | PC.NURSE ---
Patient denies any dizziness or weakness after paracentesis.
== END 2025-05-08 13:15 | disposition home or self-care (01) ==
PROVIDERS: Radiology Diagnostic Radiology; PCP Nurse Practitioner Family; Visit Provider Nurse Practitioner
PROC: (CPT 49082; principal; 2025-05-08 12:30)
DX: R18.8 Other ascites (principal)
CPT/HCPCS: 49083

== ENCOUNTER 2025-05-10 08:22 | Oncology outpatient (recurring) (ONCR) | payer BC, MEDICAID, SELFPAY ==
[2025-05-10 08:44] LABS: Hematocrit 40.3 % (36-47); Hemoglobin 12.90 g/dL (11.27-16.99); Mean Corpuscular HGB Conc 32.0 g/dL (30-55); Mean Corpuscular Hemoglobin 27.9 pg (27-33); Mean Corpuscular Volume 87.2 fl (85-98); Nucleated Red Blood Cells % 0 %; Platelet Count 69 10^3/cmm (157-399); Red Blood Count 4.62 10^6/uL (3.85-5.65); White Blood Count 10.33 10^3/uL (3.29-11.43)
[2025-05-10 09:02] LABS: Alanine Aminotransferase 26 U/L (0-33); Albumin Level 3.1 g/dL (3.5-5.2); Alkaline Phosphatase 488 U/L (35-105); Anion Gap 13.1 (5-19); Aspartate Amino Transferase 43 U/L (0-32); Blood Urea Nitrogen 8 mg/dL (6-20); Calcium 8.6 mg/dL (8.5-10.5); Carbon Dioxide 26 mmol/L (22-29); Chloride 100 mmol/L (98-107); Globulin 2.9 g/dL (1.3-4.6); Glucose 236 mg/dL (65-115); Osmolality Calculated 286 mOsm/kg (285-295); Potassium 4.1 mmol/L (3.5-5.1); Sodium 135 mmol/L (136-145); Total Protein 6.0 g/dL (6.6-8.7)
[2025-05-10 15:54] LABS: Ferritin 930 ng/mL (15-150); Iron 37 ug/dL (37-145); Total Iron Binding Capacity 131 mcg/dl; Unsaturated Iron Binding 94 ug/dL (112-347)
[2025-05-10 17:22] LABS: Cancer Antigen 19 9 11375 U/mL (0-35); Vitamin B12 1904 pg/mL (232-1245)
== END 2025-06-02 23:59 | disposition home or self-care (01) ==
PROVIDERS: Internal Medicine; PCP Nurse Practitioner Family; Visit Provider Nurse Practitioner
DX: C25.9 Malignant neoplasm of pancreas, unspecified (principal); C78.7 Secondary malignant neoplasm of liver and intrahepatic bile duct
CPT/HCPCS: 80053; 82607; 82728; 82746; 83540; 83550; 83615; 85025; 86301

== ENCOUNTER → 2025-05-16 10:18 | Day surgery (SDC) | payer BC, MEDICAID, SELFPAY ==
--- NOTE | 2025-05-16 10:50 | P.ANESASSM_ITS ---
Pre-Anesthetic Assessment Height/Weight: Height 5 ft 7 in Operation Date: 05/16/25 12:00 Proposed Procedures p Laparoscopic Peritoneal Catheter Insertion [id number] R18.8(Not Applicable) - Karthik Douglas MD Anesthetic Plan Other: No prior issues with anesthesia NPO since yesterday evening Patient has pancreatic cancer metastasized to the liver with abdominal ascites noted Bilateral PEs 06/15/2023 after her cholecystectomy CT performed 04/20/2025 showing thrombosis in proximal main portal vein with numerous portosystemic collaterals. Splenomegaly noted Patient has been receiving paracentesis removing multiple liters at a time Patient has been on fentanyl patch 75 mcg as well as hydrocodone 10?3 25, 3 times daily as well as oxycodone 10 mg Q12 and this has not been controlling pain Medications/Allergies Home Medications ?Medication ?Instructions ?Recorded ?Confirmed ?Last Taken ?Type glucometer testing kit #1 ea 06/17/23 05/10/25 Unkn own Rx fezolinetant 45 mg tablet (Veozah) 45 mg PO DAILY 10/2805/15/25 05/15/25 History apixaban 5 mg tablet (Eliquis) 5 mg PO BID 06/03/2405/13/25 History lorazepam 2 mg tablet (Ativan) 2 mg PO Q6H PRN Sleep/a nxiety #20 06/03/24 05/15/25 04/30/25 Rx tabs promethazine 25 mg tablet 25 mg PO Q6H PRN nausea and 06/03/24 05/16/25 05/16/25 Rx vomiting #20 tabs polyethylene glycol 3350 17 gram 17 g PO DAILY PRN con stipation #14 02/16/25 05/15/25 05/15/25 Rx oral powder packet (Miralax) ea linaclotide 145 mcg capsule 145 mcg PO DAILY #30 caps 03/08/25 05/15/25 05/15/25 Rx (Linzess) sertraline 25 mg tablet 25 mg PO DAILY 04/05/2503/0105/15/25 History docusate sodium 50 mg capsule 100 mg PO TID 04/30/25 1 07/16/24 05/15/25 History fentanyl 100 mcg/hr transdermal 1 patch transdermal Q7 2H 30 days 05/10/25 05/15/2525 Rx patch #10 ea hydrocodone 10 mg-acetaminophen 2 tab PO Q4H PRN Pain (Scale Score 05/10/25 05/16/25 05/16/25 Rx 325 mg tablet 1-3) 5 days #60 tabs oxycodone 10 mg tablet,crush 10 mg PO Q12H 30 days #60 tabs 05/10/25 05/16/25 05/16/25 Rx resistant,extended release 12 hr prochlorperazine maleate 10 mg 10 mg PO Q4H PRN mild n ausea #30 05/11/25 05/15/25 05/15/25 Rx tablet (Compazine) tabs pplbno-rwpoyvbj-ktghmcz(pork)12,000-38,000-60,000 1 ca p PO TID #30 caps 05/14/25 05/15/25 05/15/25 Rx unit capsule,del rel (Creon) Allergies Allergy/AdvReac Type Severity Reaction Status Date / Time Penicillins Allergy Mild Unknown Verified 05/15/25 12:13 [facility] Anesthesia Medical History (Updated 05/10/25 @ 14:07 by Chris Perrin MD) 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
[2025-05-16 10:59] VITALS: BP 119/83; PULSE 100; RESP 16; TEMP 36.4; O2SAT 95; BMI 27.7
--- NOTE | 2025-05-16 11:37 | PC.NURSE ---
After Dr. Douglas seen pt and reviewed surgery plan and risks and benefits, pt has request to cancel surgery and leave sumanth. Pt states that when the surgeon comes in and states i will do my best to keep you alive on the table today per pt. Pt and do not feel comfortable with the surgery. Pt has requested since she feels so full in her ABD that she be drained today if possibly. Notified Dr. Douglas. Plan is for pt to go home and potentially come back to hospital to be drained. Iv removed, pt left via wheelchair in private vehicle.
--- NOTE | 2025-05-16 12:18 | PM.MISC ---
Miscellaneous Note Note: Patient presented for peritoneal dialysis catheter placement for palliation given her massive ascites secondary to malignancy. I had an extensive discussion with the patient and the regarding the risks of the procedure. I answered all of their questions. Patient decided to not proceed with the surgery given the risks associated with the procedure. She has requested to be put in contact with radiology for paracentesis. I have reached out to my office and GI Lab staff who will arrange for paracentesis as quickly as possible in an outpatient basis. At the end of the encounter I asked the patient and the if they had any other concerns and they expressed they had none. Nurse and anesthesiologist were also involved in these discussions.
== END ==
PROVIDERS: PCP Nurse Practitioner Family; Visit Provider Student in an Organized Health Care Education/Training Program
PROC: 0WHG43Z Insertion of Infusion Device into Peritoneal Cavity, Percutaneous Endoscopic Approach (ICD-10-PCS; CPT 49324; principal; 2025-05-16 11:50)
DX: Z53.8 Procedure and treatment not carried out for other reasons (principal)

== ENCOUNTER → 2025-05-17 11:21 | Day surgery (SDC) | payer BC, MEDICAID, SELFPAY ==
[2025-05-17 11:39] VITALS: BP 116/75; PULSE 98; RESP 16; TEMP 36.4; O2SAT 95
--- NOTE | 2025-05-17 11:45 | US_ITS ---
WS: [id number] ULTRASOUND-GUIDED PARACENTESIS CLINICAL INFORMATION: Ascites COMPARISON: None. Procedure Informed consent: The risks, benefits, and alternatives of the procedure were discussed with the patient. Verbal and written consent was obtained. Timeout: A timeout was performed to confirm the correct patient, procedure, and site. Preparation: A suitable skin site was identified. The patient was prepped and draped in usual sterile fashion. Lidocaine 1% was used for local anesthesia. Catheter: 4 [place] One-step Yueh catheter. Side: RIGHT lower quadrant. Fluid Volume: 6150 ml Color: Clear yellow DISPOSITION: Discarded safely. Complications: None. Patient disposition: Discharged from the department in stable condition. US/US paracentesis abd w [id number] IMPRESSION: Uncomplicated ultrasound-guided paracentesis. Removal of 6150 cc
== END ==
LOC: GILAB 11:22
PROVIDERS: Radiology Neuroradiology; PCP Nurse Practitioner Family; Visit Provider Nurse Practitioner
PROC: (CPT 49082; principal; 2025-05-17 13:30)
DX: R18.8 Other ascites (principal)
CPT/HCPCS: 49083

== ENCOUNTER → 2025-05-22 11:23 | Day surgery (SDC) | payer BC, MEDICAID, SELFPAY ==
[2025-05-22 11:41] VITALS: BP 115/71; PULSE 101; RESP 16; TEMP 36.2; O2SAT 95
[2025-05-22 11:48] VITALS: BMI 28.0
--- NOTE | 2025-05-22 11:48 | US_ITS ---
WS: [id number] ULTRASOUND-GUIDED THERAPEUTIC PARACENTESIS Procedure, risks, and complications have been explained to the patient. Consent is obtained. Utilizing aseptic technique and 1% buffered lidocaine, a small dermatome was made through which a 5 [place]ian Yueh catheter was inserted. Approximately 7250 ml of clear peritoneal fluid was obtained without difficulty. No complications encountered. US/US paracentesis abd w [id number] IMPRESSION: Uncomplicated paracentesis yielding 7250 ml of peritoneal fluid.
--- NOTE | 2025-05-22 12:40 | PC.NURSE ---
Dr. Weems informed pt took Eliquis yesterday.
== END ==
LOC: GILAB 11:25
PROVIDERS: Radiology Diagnostic Radiology; PCP Nurse Practitioner Family
PROC: (CPT 49082; principal; 2025-05-22 13:00)
DX: R18.8 Other ascites (principal)
CPT/HCPCS: 49083

== ENCOUNTER 2025-05-28 11:27 | Day surgery (SDC) | payer BC, MEDICAID, SELFPAY ==
--- NOTE | 2025-05-28 11:31 | US_ITS ---
WS: [id number] ULTRASOUND-GUIDED PARACENTESIS CLINICAL INFORMATION: comfort and fluid reduction COMPARISON: None. Procedure Informed consent: The risks, benefits, and alternatives of the procedure were discussed with the patient. Verbal and written consent was obtained. Timeout: A timeout was performed to confirm the correct patient, procedure, and site. Preparation: A suitable skin site was identified. The patient was prepped and draped in usual sterile fashion. Lidocaine 1% was used for local anesthesia. Catheter: 4 Indonesian One-step Yueh catheter. Side: RIGHT lower quadrant. Fluid Volume: 4000 ml Color: Clear yellow DISPOSITION: Discarded safely. Complications: None. Patient disposition: Discharged from the department in stable condition. US/US paracentesis abd w [id number] IMPRESSION: Uncomplicated ultrasound-guided paracentesis. Removal of 4000 cc
[2025-05-28 11:45] VITALS: BP 99/67; PULSE 93; RESP 18; TEMP 36.3; O2SAT 95; BMI 28.1
== END 2025-05-28 12:46 | disposition home or self-care (01) ==
LOC: GILAB 11:29
PROVIDERS: Radiology Neuroradiology; PCP Nurse Practitioner Family
PROC: (CPT 49082; principal; 2025-05-28 12:00)
DX: R18.8 Other ascites (principal)
CPT/HCPCS: 49083